=== PATIENT | female | born 1930 | race Caucasian/White ===

== ENCOUNTER 2017-09-15 13:12 | Inpatient (IN) | payer OTHER ==
[~2017-09-15] VITALS: Ht 157.5 cm; Wt 62.3 kg
[~2017-09-15 13:12] MED LIST: ACET1TAB84 PO; ALL300 PO; CALC500C73 PO; CHOL200010 PO; FRS/80 PO; FURO40TA3 PO; LEVO50TA6 PO; LOPETAB PO; MESA0.37 PO; POTA10CA28 PO; ULT50X PO
--- NOTE | 2017-09-15 13:29 | EMERGENCY ROOM VISIT NOTE ---
History Report prepared by Chu: Meek Tobar Under the Supervision of: Dr. Sandra Rich D.O. First contact with patient: 13:15 Stated Complaint: EDEMA/LOWER EXTREMITY WEAKNESS History of Present Illness The patient is an 87 year old female who presents to the Emergency Room with complaints of worsening lower extremity weakness and edema that started earlier this morning. She says that she had been taking Lasix for years due to lower extremity edema, but decided to stop taking it 3 days ago due to dribbling and urinating without warning. The patient states that she woke up overnight and urinating a lot. She says that she then sat in her chair, and she could not get up from the chair this morning. The patient states that she then decided to take her Lasix for the first time in 3 days this morning. She notes that she was on her legs more than usual yesterday. She also notes no history of heart problems, but had an echocardiogram recently. The patient denies any shortness of breath, chest pain, fevers, chills, abdominal pain, leg pain, rashes, or sores. She denies any other medication changes. Source of History: patient Onset: Earlier this morning Position: leg (bilateral) Quality: other (weakness, edema) Timing: worsening Associated Symptoms: + urinary symptoms, No fevers, No chills, No chest pain , No SOB, No abdominal pain, No rash (or sores) Note: Associated symptoms: Denies leg pain. Review of Systems See HPI for pertinent positives & negatives. A total of 10 systems reviewed and were otherwise negative. Past Medical & Surgical Medical Problems: (1) Diab Isabell Wo Compl, Type Ii Or Unspec Type, Not Uncntrld (2) Fx Distal Radius Nec-Cl (3) Hypertension Nos (4) Intertrochanteric Fx-Cl (5) Irritable Bowel Syndrome Family History Omitted due to advanced age Social History Smoking Status: Never Smoker Alcohol Use: none Housing Status: lives alone Occupation Status: retired Current/Historical Medications Scheduled Allopurinol (Zyloprim), 300 MG PO DAILY Furosemide (Lasix), 40 MG PO TID Levothyroxine Sodium (Levothyroxine Sodium), 1 TAB PO DAILY Mesalamine (Apriso), 1.5 GM PO QAM Potassium Chloride (Micro-K Ext Rel), 10 MEQ PO BID Allergies Coded Allergies: Aspirin (Verified Allergy, Unknown, [facility], 09/16/17) 09/16/17: Dr. Umanzor spoke with patient, OK to give. Monitor. Thought GI related. AJ Bisphosphonates (Verified Allergy, Unknown, ., 01/20/12) Mesalamine (Verified Allergy, Unknown, ., 01/20/12) Metformin (Verified Allergy, Unknown, ., 09/04/13) NSAIDs (Verified Allergy, Unknown, ., 01/20/12) Physical Exam Vital Signs Date Time Temp Pulse Resp B/P (MAP) Pulse Ox O2 Delivery O2 Flow Rate FiO2 09/15/17 17:59 82 18 127/73 96 Room Air 09/15/17 17:15 09/15/17 15:26 84 24 118/74 97 Room Air 09/15/17 15:17 79 24 111/64 95 Room Air 09/15/17 14:23 79 18 111/79 95 Room Air 09/15/17 13:57 85 09/15/17 13:53 84 18 130/60 96 Room Air 09/15/17 13:20 36.7 86 16 129/77 94 Room Air Physical Exam GENERAL: alert, well appearing, poor hygiene, well nourished, no distress, non- toxic EYE EXAM: normal conjunctiva, PERRL and EOM's grossly intact OROPHARYNX: no exudate, no erythema, lips, buccal mucosa, and tongue normal and mucous membranes are dry NECK: supple, no nuchal rigidity, no adenopathy, non-tender LUNGS: Clear to auscultation. Normal chest wall mechanics, no wheezes/rhonchi/ rales HEART: no murmurs, S1 normal and S2 normal ABDOMEN: abdomen soft, non-tender, normo-active bowel sounds, no masses, no rebound or guarding. BACK: Back is symmetrical on inspection and there is no deformity, no midline tenderness, no CVA tenderness. SKIN: no rashes and no bruising UPPER EXTREMITIES: upper extremities are grossly normal, normal range of motion , normal pulses. LOWER EXTREMITIES: appears to be acute on chronic lower extremity edema. No erythema, no rashes or sores. Pulses present bilaterally. NEURO EXAM: Normal sensorium, cranial nerves II-XII grossly intact, normal speech, no gross weakness of arms, no gross weakness of legs. Medical Decision & Procedures ER Provider Diagnostic Interpretation: Radiology results have been interpreted by the radiologist and reviewed by me. CHEST ONE VIEW PORTABLE HISTORY: 87 years-old Female LE edema acute lower extremity edema with concern for pulmonary edema COMPARISON: Chest radiograph 02/20/2014 TECHNIQUE: Portable upright AP view of the chest FINDINGS: Study is very limited secondary to patient positioning. The patient is sidebend the right and rotated to the right. The cardiac silhouette is moderately enlarged. Large hiatal hernia with partially intrathoracic stomach redemonstrated. Pulmonary vascular congestion is noted without overt pulmonary edema. There is no pneumothorax. Mild interstitial opacities are present bilaterally. There is trace fluid along the minor fissure. Patchy bibasilar opacities without large pleural effusion. Severe degenerative changes of the shoulders. Degenerative changes are also noted within the spine. IMPRESSION: 1. Very limited study secondary to patient positioning. 2. Moderate cardiomegaly with pulmonary vascular congestion and mild interstitial coarsening without overt pulmonary edema. 3. Bibasilar opacities suggest atelectasis. 4. Large hiatal hernia. The above report was generated using voice recognition software. It may contain grammatical, syntax or spelling errors. Electronically signed by: Joaquín Schroeder M.D. 09/15/2017 2:38 PM Dictated Date/Time: 09/15/2017 2:35 PM (CHEST FOR PE) ANGIO WITH CT DOSE: 318.70 mGycm HISTORY: 87 years-old Female presents with acute lower extremity edema with elevated troponin TECHNIQUE: Multiple CTA images of the chest were obtained after the intravenous administration of 94 ml Optiray 320. Coronal and sagittal MIPS were obtained from the axial data set and were submitted for review. A dose lowering technique was utilized adhering to the principles of ALARA. COMPARISON: Chest radiograph of same day. FINDINGS: Exam is moderately limited secondary to respiratory motion. CTA: The heart demonstrates at least moderate multichamber enlargement without pericardial effusion. Coronary arterial calcifications are noted. The thoracic aorta demonstrates no aneurysm or dissection. There is moderate mixed plaquing of the aorta with descending thoracic aortic tortuosity. The main pulmonary artery is mildly dilated which may reflect underlying pulmonary arterial hypertension. The distal segmental and subsegmental branches are not well evaluated secondary to respiratory motion. No pulmonary embolus identified. CT CHEST: No dominant thyroid nodule identified. No definite pathologic-appearing adenopathy. There are multifocal consolidative alveolar and groundglass opacities throughout the right lower lobe. Groundglass opacities of the left lower lobe suggest atelectasis or scarring. Central airways are patent. Moderate sized hiatal hernia. Cholelithiasis is partially imaged. Soft tissues are unremarkable. The bones appear mildly demineralized. Degenerative changes are seen and of the spine and shoulders. 20% anterior compression deformity of T12 is age indeterminate, however appears chronic. No retropulsion. IMPRESSION: 1. Moderately limited study secondary to respiratory motion. 2. Cardiomegaly without acute aortic pathology or evidence of pulmonary thromboembolic disease. 3. Multifocal groundglass and consolidative opacities throughout the right lower lobe suggest bronchopneumonia or aspiration pneumonitis. 4. Moderate hiatal hernia. 5. Cholelithiasis. 6. 20% anterior endplate compression deformity of T12 is age indeterminate, however appears chronic without retropulsion. The above report was generated using voice recognition software. It may contain grammatical, syntax or spelling errors. Electronically signed by: Joaquín Schroeder M.D. 09/15/2017 4:07 PM Dictated Date/Time: 09/15/2017 3:57 PM BILATERAL LOWER EXTREMITY VENOUS DOPPLER HISTORY: Lower extremity edema. COMPARISON STUDY: None. FINDINGS: There is normal compressibility, flow, and augmentation within the bilateral lower extremity deep venous systems. Of note, a small portion of the right superficial femoral vein was not visualized due to the overlapping bandages. IMPRESSION: No DVT within the right or left lower extremity. Electronically signed by: Matthew Powell M.D. 09/15/2017 5:23 PM Dictated Date/Time: 09/15/2017 5:21 PM Laboratory Results Test 09/15/17 13:35 09/15/17 14:05 Prothrombin Time 10.8 SECONDS (9.0-12.0) Prothromb Time International Ratio 1.0 (0.9-1.1) D-Dimer 3460 ug/L FEU (0-500) Magnesium Level 2.2 mg/dl (1.8-2.4) Pro-B-Type Natriuretic Peptide 85935 pg/ml (0-1800) Thyroid Stimulating Hormone (TSH) 0.879 uIu/ml (0.300-4.500) Urine Color YELLOW Urine Appearance CLOUDY (CLEAR) Urine pH 5.0 (4.5-7.5) Urine Specific [place] 1.014 (1.000-1.030) Urine Protein 1+ (NEG) Urine Glucose (UA) NEG (NEG) Urine Ketones NEG (NEG) Urine Occult Blood 1+ (NEG) Urine Nitrite NEG (NEG) Urine Bilirubin NEG (NEG) Urine Urobilinogen NEG (NEG) Urine Leukocyte Esterase LARGE (NEG) Urine WBC (Auto) >30 /hpf (0-5) Urine RBC (Auto) 0-4 /hpf (0-4) Urine Hyaline Casts (Auto) 1-5 /lpf (0-5) Urine Epithelial Cells (Auto) 0-5 /lpf (0-5) Urine Bacteria (Auto) 4+ (NEG) Laboratory results per my review. Medications Administered Medications (Trade) Dose Ordered Sig/Elen Route Start Time Stop Time Status Last Admin Dose Admin Ceftriaxone Sodium (Rocephin Inj) 1 gm NOW STAT IV 09/15/17 14:56 09/15/17 14:57 DC 09/15/17 15:22 1 GM Furosemide (Lasix Inj) 40 mg NOW STAT IV 09/15/17 14:57 09/15/17 14:59 DC 09/15/17 15:21 40 MG Azithromycin 500 mg/Dextrose 255 ml @ 127.5 mls/ hr NOW ONCE IV 09/15/17 17:00 09/15/17 18:59 DC 09/15/17 18:01 127.5 MLS/HR Ertapenem 1 gm/ Sodium Chloride 50 ml @ 100 mls/hr NOW ONCE IV 09/15/17 17:00 09/15/17 17:29 DC 09/15/17 18:01 100 MLS/HR ECG Indication: weakness Rate (beats per minute): 82 Rhythm: sinus rhythm Findings: T-wave inversion (subtle in V4, V5, V6), other (normal axis, normal intervals, no ST elevation) ED Course 1317: The patient was evaluated in room B3B. A complete history and physical exam was performed. 1325: I reviewed the patient's echocardiogram report from 2 years ago. 1456: Ordered Rocephin Inj 1 gm IV. 1457: Ordered Lasix Inj 40 mg IV. 1524: I reevaluated the patient and she denies any chest pain or shortness of breath. Her son at bedside says he has noticed the patient has been more winded with exertion recently. 1531: Ordered Ecotrin Tab 325 mg PO. 1650: Upon reevaluation, the patient is resting. I discussed the findings and the treatment plan with the patient. She expresses agreement and understanding. She will be evaluated for further management. 1652: The pharmacist will dose some antibiotics on the patient. 1655: The patient is at CT. 1657: I reviewed the patient's case with Lucia Mcknight. She will evaluate the patient for further management. 1700: Ordered Ertapenem 1 gm/Sodium Chloride 50 ml @ 100 mls/hr IV, Azithromycin 500 mg/Dextrose 255 ml @ 127.5 mls/hr IV. 1716: I discussed the patient with Dr. Prosper Mcknight outpatient dietitian. 1743: I discussed the patient with Dr. Erna Mcknight cardiology - he says no heparin drip at this time, and says that routine DVT prophylaxis is okay. Medical Decision Differential Diagnosis includes but is not limited to dehydration, stroke, anemia, hypoglycemia, hyponatremia, hypernatremia, urinary tract infection, pneumonia, bronchitis, sepsis, gastroenteritis, additional abdominal pathology, metabolic abnormalities and infections. Patient initially presented with complaints of increased lower extremity edema which was initially thought to be due to her skipping her doses earlier in the week because she did not want to use the restroom as frequently. Upon additional evaluation patient found to have a leukocytosis, pneumonia, UTI, elevated troponin and BNP. Discussed patient with hospitalist as well as cardiology. No DVT noted on evaluation of lower extremities. No evidence of dissection, tamponade. Patient's vital signs stable. She with no reported trouble breathing or chest pain throughout. Unclear if elevated troponin related to combination of pneumonia, congestive heart failure, mild renal insufficiency. Cultures drawn and initial Rocephin for UTI, broadened following finding pneumonia. Concern for evolving sepsis. Patient and son made aware of all results were agreeable with plan at bedside. Medication Reconcilliation Current Medication List: was personally reviewed by me Blood Pressure Screening Patient's blood pressure: Normal blood pressure Consults Time Called: 1654 Consulting Physician: Lucia Mcknight Returned Call: 1656 I reviewed the patient's case with Lucia Mcknight. She will evaluate the patient for further management. Additional Consults: Time Called: 1710 Consulted Physician: Dr. Prosper Mcknight outpatient dietitian Returned Call: 1716 Additional Comments: I discussed the patient with Dr. Prosper Mcknight outpatient dietitian. Time Called: 1739 Consulted Physician: Dr. Erna Mcknight cardiology Returned Call: 1743 Additional Comments: I discussed the patient with Dr. Erna Mcknight cardiology - he says no heparin drip at this time, and says that routine DVT prophylaxis is okay. Impression Primary Impression: Lower extremity edema Additional Impressions: UTI (urinary tract infection) PNA (pneumonia) Elevated troponin Elevated brain natriuretic peptide (BNP) level Critical Care I have personally spent greater than 60 minutes of critical care time in the direct management of this patient. This includes bedside care, interpretation of diagnostic studies, and testing, discussion with consultants, patient, and family members, and other required patient management activities. This 60 minutes is in excess of all separately billable procedures. Scribe Attestation The scribe's documentation has been prepared under my direction and personally reviewed by me in its entirety. I confirm that the note above accurately reflects all work, treatment, procedures, and medical decision making performed by me. Departure Information Dispostion Being Evaluated By Hospitalist Referrals [facility] (PCP) Problem Qualifiers Additional Impressions: UTI (urinary tract infection) Urinary tract infection type: acute cystitis Hematuria presence: with hematuria Qualified Codes: N30.01 - Acute cystitis with hematuria PNA (pneumonia) Pneumonia type: due to unspecified organism Laterality: bilateral Lung location: lower lobe of lung Qualified Codes: J18.9 - Pneumonia, unspecified organism
[2017-09-15] MEDS ORDERED: LEVO75TA5 PO (13:44)
[2017-09-15] MEDS ORDERED: FRS/40 PO (13:44)
[2017-09-15] MEDS ORDERED: ALLO300T2 PO (13:44)
[2017-09-15 14:23] LABS: HEMATOCRIT 37.7 % (37-47); MEAN CELL VOLUME 96.7 fL (80-100); MEAN CORPUSCULAR HGB CONC 32.1 g/dl (32-36); MEAN PLATELET VOLUME 10.8 fL (7.4-10.4); PLATELET COUNT 216 K/uL (130-400); WHITE BLOOD COUNT 25.43 K/uL (4.8-10.8)
[2017-09-15 14:39] LABS: BUN/CREATININE RATIO 26.7 (10-20); CALCIUM 9.6 mg/dl (8.5-10.1); CREATININE 1.25 mg/dl (0.60-1.20); MAGNESIUM 2.2 mg/dl (1.8-2.4); POTASSIUM 4.4 mmol/L (3.5-5.1)
--- NOTE | 2017-09-15 14:39 | DIAGNOSTIC IMAGING REPORT ---
CHEST ONE VIEW PORTABLE HISTORY: 87 years-old Female LE edema acute lower extremity edema with concern for pulmonary edema COMPARISON: Chest radiograph 02/20/2014 TECHNIQUE: Portable upright AP view of the chest FINDINGS: Study is very limited secondary to patient positioning. The patient is sidebend the right and rotated to the right. The cardiac silhouette is moderately enlarged. Large hiatal hernia with partially intrathoracic stomach redemonstrated. Pulmonary vascular congestion is noted without overt pulmonary edema. There is no pneumothorax. Mild interstitial opacities are present bilaterally. There is trace fluid along the minor fissure. Patchy bibasilar opacities without large pleural effusion. Severe degenerative changes of the shoulders. Degenerative changes are also noted within the spine. IMPRESSION: 1. Very limited study secondary to patient positioning. 2. Moderate cardiomegaly with pulmonary vascular congestion and mild interstitial coarsening without overt pulmonary edema. 3. Bibasilar opacities suggest atelectasis. 4. Large hiatal hernia. The above report was generated using voice recognition software. It may contain grammatical, syntax or spelling errors. Electronically signed by: Joaquín Schroeder M.D. 09/15/2017 2:38 PM Dictated Date/Time: 09/15/2017 2:35 PM
[2017-09-15 14:48] LABS: URINE APPEARANCE CLOUDY (CLEAR); URINE BILIRUBIN NEG (NEG); URINE COLOR YELLOW; URINE EPITHELIAL CELL AUTO 0-5 /lpf (0-5); URINE NITRITE NEG (NEG); URINE SPECIFIC GRAVITY 1.014 (1.000-1.030); UROBILINOGEN NEG (NEG)
[2017-09-15 14:48] LABS: ALB/GLOB RATIO 0.9 (0.9-2)
[2017-09-15 14:53] LABS: MANUAL MICROSCOPIC REQUIRED? NO; REVIEW REQ? NO
[2017-09-15] MEDS ORDERED: CEFTRIAXONE SOD INJ 1 GM ADDVIAL IV STA (14:56)
[2017-09-15] MEDS ORDERED: FUROSEMIDE 40 MG/4 ML VIAL IV STA (14:57)
[2017-09-15] MEDS ORDERED: OPTIRAY 320 IV PRN (15:15)
[2017-09-15 15:23] LABS: BASO % 0.1 %; BASO ABS # 0.03 K/uL (0-0.2); COMPLETE YES; IG% 0.3 %; LYMPH % 3.9 %; LYMPH ABS # 0.99 K/uL (1.2-3.4); MONO % 6.1 %; NEUT % 89.6 %
[2017-09-15] MEDS ORDERED: ASPIRIN 325 MG ECTAB PO STA (15:31)
--- NOTE | 2017-09-15 16:08 | DIAGNOSTIC IMAGING REPORT ---
(CHEST FOR PE) ANGIO WITH CT DOSE: 318.70 mGycm HISTORY: 87 years-old Female presents with acute lower extremity edema with elevated troponin TECHNIQUE: Multiple CTA images of the chest were obtained after the intravenous administration of 94 ml Optiray 320. Coronal and sagittal MIPS were obtained from the axial data set and were submitted for review. A dose lowering technique was utilized adhering to the principles of ALARA. COMPARISON: Chest radiograph of same day. FINDINGS: Exam is moderately limited secondary to respiratory motion. CTA: The heart demonstrates at least moderate multichamber enlargement without pericardial effusion. Coronary arterial calcifications are noted. The thoracic aorta demonstrates no aneurysm or dissection. There is moderate mixed plaquing of the aorta with descending thoracic aortic tortuosity. The main pulmonary artery is mildly dilated which may reflect underlying pulmonary arterial hypertension. The distal segmental and subsegmental branches are not well evaluated secondary to respiratory motion. No pulmonary embolus identified. CT CHEST: No dominant thyroid nodule identified. No definite pathologic-appearing adenopathy. There are multifocal consolidative alveolar and groundglass opacities throughout the right lower lobe. Groundglass opacities of the left lower lobe suggest atelectasis or scarring. Central airways are patent. Moderate sized hiatal hernia. Cholelithiasis is partially imaged. Soft tissues are unremarkable. The bones appear mildly demineralized. Degenerative changes are seen and of the spine and shoulders. 20% anterior compression deformity of T12 is age indeterminate, however appears chronic. No retropulsion. IMPRESSION: 1. Moderately limited study secondary to respiratory motion. 2. Cardiomegaly without acute aortic pathology or evidence of pulmonary thromboembolic disease. 3. Multifocal groundglass and consolidative opacities throughout the right lower lobe suggest bronchopneumonia or aspiration pneumonitis. 4. Moderate hiatal hernia. 5. Cholelithiasis. 6. 20% anterior endplate compression deformity of T12 is age indeterminate, however appears chronic without retropulsion. The above report was generated using voice recognition software. It may contain grammatical, syntax or spelling errors. Electronically signed by: Joaquín Schroeder M.D. 09/15/2017 4:07 PM Dictated Date/Time: 09/15/2017 3:57 PM
[2017-09-15] MEDS ORDERED: ERTAPENEM IV 1 GM in SODIUM CHLOR 0.9% AD-VAN 50ML IV ONE (17:00)
[2017-09-15] MEDS ORDERED: AZITHROMYCIN 500 MG / D5W 250 ML IV ONE ×2 (17:00)
--- NOTE | 2017-09-15 17:24 | DIAGNOSTIC IMAGING REPORT ---
BILATERAL LOWER EXTREMITY VENOUS DOPPLER HISTORY: Lower extremity edema. COMPARISON STUDY: None. FINDINGS: There is normal compressibility, flow, and augmentation within the bilateral lower extremity deep venous systems. Of note, a small portion of the right superficial femoral vein was not visualized due to the overlapping bandages. IMPRESSION: No DVT within the right or left lower extremity. Electronically signed by: Matthew Powell M.D. 09/15/2017 5:23 PM Dictated Date/Time: 09/15/2017 5:21 PM
[2017-09-15] MEDS ORDERED: CLOPIDOGREL BISULFATE 75 MG TAB PO ONE (18:15)
[2017-09-15 19:35] VITALS: BP 117/64; PULSE 82; TEMP 36.7; Ht 157.5 cm; Wt 62.3 kg
--- NOTE | 2017-09-15 20:15 | History and Physical ---
History & Physical Date & Time of Service: Sep 15, 2017 at 20:05 Chief Complaint: Elevated Troponin, Lower Extremity Edema, Pna Primary Care Physician: Russ Doshi M.D. History of Present Illness Source: patient 87 year old F who was in her usual state of health yesterday when walking and shopping in [facility], went to sleep in a chair at home instead of her bed and when awaking, patient was too weak to get up off the chair by herself, patient called for assistance and a neighbor helped her get cleaned up, and helped her get assistance to go to the hospital, when arrived in the ED her labs were significant for troponin of 18 without acute EKG findings as per ED interpretation. D-dimer positive, but CTA did not find evidence of pulmonary embolism and lower extremity ultrasound did not find evidence for deep vein thrombosis. CTA imaging pertinent for Multifocal ground glass and consolidative opacities throughout the right lower lobe suggest bronchopneumonia or aspiration pneumonitis. Patient denied shortness of breath or chest pain or abdominal pain. Because patient reports aspirin allergy, the 325 mg of aspirin that was ordered by the ER physician was stopped. Case discussed with Cardiology Dr. Umanzor who advised alternative antiplatelet - clopidogrel 75 mg x 1 for now, and to hold off on heparin drip. Patient also denied history of dysuria but had positive UA. For empiric treatment of pneumonia or UTI, ER physician ordered IV ceftriaxone, IV azithromycin, and IV Ertapenem. Patient also has been off of her Lasix for several days and has elevated BNP suggestive that infiltrates in lung may be due to CHF and also reports increased lower extremity swelling. Patient was seen and assessed by hospitalist medical physician and as per discussion with the patient with her son (contact number [phone]), patient declines resuscitation or intubation in an emergency situation - Code status DNR/DNI Family History Omitted due to advanced age Social History Smoking Status: Never Smoker Occupational Status: retired Immunizations History of Influenza Vaccine: Yes History of Tetanus Vaccine?: Yes History of Pneumococcal: Yes History of Hepatitis B Vaccine: Yes Multi-Drug Resistant Organisms History of MDRO: No Allergies Coded Allergies: Aspirin (Verified Allergy, Unknown, uknown, 02/16/14) Bisphosphonates (Verified Allergy, Unknown, ., 01/20/12) Mesalamine (Verified Allergy, Unknown, ., 3/23/12) Metformin (Verified Allergy, Unknown, ., 09/04/13) NSAIDs (Verified Allergy, Unknown, ., 01/20/12) Home Medications Scheduled Allopurinol (Zyloprim), 300 MG PO DAILY Furosemide (Lasix), 40 MG PO TID Levothyroxine Sodium (Levothyroxine Sodium), 1 TAB PO DAILY Mesalamine (Apriso), 1.5 GM PO QAM Potassium Chloride (Micro-K Ext Rel), 10 MEQ PO BID Review of Systems Constitutional: + weakness, No fever, No sweats Eyes: No worsening of vision, No eye pain ENT: No hearing loss, No nasal symptoms, No sore throat, No trouble swallowing Respiratory: No cough, No sputum, No wheezing, No shortness of breath Cardiovascular: + edema, No chest pain, No palpitations Abdomen: No pain, No nausea, No vomiting, No diarrhea, No constipation, No GI bleeding Musculoskeletal: + swelling, No joint pain, No muscle pain, No calf pain Genitourinary - Female: No dysuria Neurologic: No numbness/tingling Psychiatric: No substance abuse Hematologic / Lymphatic: No abnormal bleeding/bruising Integumentary: No rash, No itch Physical Exam Vital Signs Date Time Temp Pulse Resp B/P (MAP) Pulse Ox O2 Delivery O2 Flow Rate FiO2 09/15/17 18:50 78 24 146/74 93 Room Air 09/15/17 17:59 82 18 127/73 96 Room Air 09/15/17 17:15 09/15/17 15:26 84 24 118/74 97 Room Air 09/15/17 15:17 79 24 111/64 95 Room Air 09/15/17 14:23 79 18 111/79 95 Room Air 09/15/17 13:57 85 09/15/17 13:53 84 18 130/60 96 Room Air 09/15/17 13:20 36.7 86 16 129/77 94 Room Air General Appearance: no apparent distress Head: normocephalic, atraumatic Eyes: normal inspection, EOMI, sclerae normal ENT: normal ENT inspection, hearing grossly normal, TMs normal, pharynx normal Neck: no JVD, trachea midline Respiratory/Chest: chest non-tender, no respiratory distress, no accessory muscle use, + crackles Cardiovascular: regular rate, rhythm, no JVD, + systolic murmur Abdomen/GI: normal bowel sounds, non tender, soft Back: normal inspection, no muscle spasm, normal range of motion Extremities/Musculoskelatal: normal range of motion, + pedal edema, + swelling (lower extremities bilterally) Neurologic/Psych: no motor/sensory deficits, alert, oriented x 3 Skin: normal color, warm/dry, no rash Diagnostics Laboratory Results Results Past 24 Hours Test 09/15/17 13:35 09/15/17 14:05 09/15/17 19:35 Range/Units White Blood Count 25.43 4.8-10.8 K/uL Red Blood Count 3.90 4.2-5.4 M/uL Hemoglobin 12.1 12.0-16.0 g/dL Hematocrit 37.7 37-47 % Mean Corpuscular Volume 96.7 80-100 fL Mean Corpuscular Hemoglobin 31.0 25-34 pg Mean Corpuscular Hemoglobin Concent 32.1 32-36 g/dl Platelet Count 216 130-400 K/uL Mean Platelet Volume 10.8 7.4-10.4 fL Neutrophils (%) (Auto) 89.6 % Lymphocytes (%) (Auto) 3.9 % Monocytes (%) (Auto) 6.1 % Eosinophils (%) (Auto) 0.0 % Basophils (%) (Auto) 0.1 % Neutrophils # (Auto) 22.79 1.4-6.5 K/uL Lymphocytes # (Auto) 0.99 1.2-3.4 K/uL Monocytes # (Auto) 1.55 0.11-0.59 K/uL Eosinophils # (Auto) 0.00 0-0.5 K/uL Basophils # (Auto) 0.03 0-0.2 K/uL RDW Standard Deviation 52.3 36.4-46.3 fL RDW Coefficient of Variation 15.0 11.5-14.5 % Immature Granulocyte % (Auto) 0.3 % Immature Granulocyte # (Auto) 0.07 0.00-0.02 K/uL D-Dimer 3460 0-500 ug/L FEU Sodium Level 141 136-145 mmol/L Potassium Level 4.4 3.5-5.1 mmol/L Chloride Level 106 98-107 mmol/L Carbon Dioxide Level 24 21-32 mmol/L Anion Gap 12.0 3-11 mmol/L Blood Urea Nitrogen 33 7-18 mg/dl Creatinine 1.25 0.60-1.20 mg/dl Est Creatinine Clear Calc Drug Dose 27.9 ml/min Estimated GFR () 45.4 Estimated GFR (Non- 39.2 BUN/Creatinine Ratio 26.7 10-20 Random Glucose 151 70-99 mg/dl Calcium Level 9.6 8.5-10.1 mg/dl Magnesium Level 2.2 1.8-2.4 mg/dl Total Bilirubin 0.5 0.2-1 mg/dl Aspartate Amino Transf (AST/SGOT) 88 15-37 U/L Alanine Aminotransferase (ALT/SGPT) 20 12-78 U/L Alkaline Phosphatase 73 45-117 U/L Troponin I 18.200 0-0.045 ng/ml Pro-B-Type Natriuretic Peptide 23573 0-1800 pg/ml Total Protein 7.2 6.4-8.2 gm/dl Albumin 3.4 3.4-5.0 gm/dl Globulin 3.8 2.5-4.0 gm/dl Albumin/Globulin Ratio 0.9 0.9-2 Thyroid Stimulating Hormone (TSH) 0.879 0.300-4.500 uIu/ml Urine Color YELLOW Urine Appearance CLOUDY CLEAR Urine pH 5.0 4.5-7.5 Urine Specific [place] 1.014 1.000-1.030 Urine Protein 1+ NEG Urine Glucose (UA) NEG NEG Urine Ketones NEG NEG Urine Occult Blood 1+ NEG Urine Nitrite NEG NEG Urine Bilirubin NEG NEG Urine Urobilinogen NEG NEG Urine Leukocyte Esterase LARGE NEG Urine WBC (Auto) >30 0-5 /hpf Urine RBC (Auto) 0-4 0-4 /hpf Urine Hyaline Casts (Auto) 1-5 0-5 /lpf Urine Epithelial Cells (Auto) 0-5 0-5 /lpf Urine Bacteria (Auto) 4+ NEG Microbiology Results 09/15/17 Blood Culture, Received Pending 09/15/17 Blood Culture, Received Pending Diagnostic Radiology CT CHEST: No dominant thyroid nodule identified. No definite pathologic-appearing adenopathy. There are multifocal consolidative alveolar and groundglass opacities throughout the right lower lobe. Groundglass opacities of the left lower lobe suggest atelectasis or scarring. Central airways are patent. Moderate sized hiatal hernia. Cholelithiasis is partially imaged. Soft tissues are unremarkable. The bones appear mildly demineralized. Degenerative changes are seen and of the spine and shoulders. 20% anterior compression deformity of T12 is age indeterminate, however appears chronic. No retropulsion. IMPRESSION: 1. Moderately limited study secondary to respiratory motion. 2. Cardiomegaly without acute aortic pathology or evidence of pulmonary thromboembolic disease. 3. Multifocal groundglass and consolidative opacities throughout the right lower lobe suggest bronchopneumonia or aspiration pneumonitis. 4. Moderate hiatal hernia. 5. Cholelithiasis. 6. 20% anterior endplate compression deformity of T12 is age indeterminate, however appears chronic without retropulsion. EKG Normal sinus rhythm Voltage criteria for left ventricular hypertrophy ST & T wave abnormality, consider lateral ischemia Abnormal ECG When compared with ECG of 16-FEB-2014 16:47, ST now depressed in Inferior leads Nonspecific T wave abnormality now evident in Inferior leads T wave inversion now evident in Lateral leads Impression Assessment and Plan 87 year old F who was in her usual state of health yesterday when walking and shopping in [facility], went to sleep in a chair at home instead of her bed and when awaking, patient was too weak to get up off the chair by herself, patient called for assistance and a neighbor helped her get cleaned up, and helped her get assistance to go to the hospital, when arrived in the ED her labs were significant for troponin of 18 without acute EKG findings as per ED interpretation. D-dimer positive, but CTA did not find evidence of pulmonary embolism and lower extremity ultrasound did not find evidence for deep vein thrombosis. CTA imaging pertinent for Multifocal ground glass and consolidative opacities throughout the right lower lobe suggest bronchopneumonia or aspiration pneumonitis. Patient denied shortness of breath or chest pain or abdominal pain. Because patient reports aspirin allergy, the 325 mg of aspirin that was ordered by the ER physician was stopped. Case discussed with Cardiology Dr. Umanzor who advised alternative antiplatelet - clopidogrel 75 mg x 1 for now, and to hold off on heparin drip. Patient also denied history of dysuria but had positive UA. For empiric treatment of pneumonia or UTI, ER physician ordered IV ceftriaxone, IV azithromycin, and IV Ertapenem. Patient also has been off of her Lasix for several days and has elevated BNP suggestive that infiltrates in lung may be due to CHF and also reports increased lower extremity swelling. Patient was seen and assessed by hospitalist medical physician and as per discussion with the patient with her son (contact number [phone]), patient declines resuscitation or intubation in an emergency situation - Code status DNR/DNI Elevated Troponin -Initial troponin 18, ED physician discussed case with cardiology Dr. Umanzor -As per Dr. Umanzor no need for IV heparin for now in patient without chest pain symptoms -The EKG on ER admission without obvious ST elevation however has readings of "Normal sinus rhythm Voltage criteria for left ventricular hypertrophy ST & T wave abnormality, consider lateral ischemia Abnormal ECG When compared with ECG of 16-FEB-2014 16:47, ST now depressed in Inferior leads Nonspecific T wave abnormality now evident in Inferior leads T wave inversion now evident in Lateral leads" -will repeat EKG, and trend troponins overnight -if further elevations in troponins or EKG changes or symptoms of chest pain, then will re-consult cardiology on IV anticoagulation -patient did not get aspirin 325 mg in the ED due to reported allergy but patient cannot recall what those allergic reactions are -75 mg of clopidogrel ordered instead, and as daily -NPO after midnight, echocardiogram ordered tomorrow, may need stress echo -cardiology consult to follow patient, hospitalist medicine physician should re- call cardiology consult as needed Possible CHF exacerbation -infiltrates in lung zavaleta with elevated BNP, and patient off of oral Lasix at home -Lower extremity edema without evidence of DVT -IV Lasix 40 mg BID for now -NPO after midnight, echocardiogram ordered tomorrow, may need stress echo Possible Pneumonia with no evidence of pulmonary embolism on CTA -infiltrates in lung zavaleta -Continue IV Ceftriaxone and IV Azithromycin which was started in the ER -send pro-calcitonin levels UA with bacteria, but no dysuria -Patient given Ertapenem in the ER -Without dysuria, it is unclear whether patient has UTI, will hold off on Ertapenem -Ceftriaxone for pneumonia coverage also has UTI coverage Electrolytes -Continue home medications of oral potassium -Monitor electrolytes while on increased Lasix Hypothyroidism -TSH checked -Continue home dose Levothyroxine Gout medication: no gout flare, continue home dose allopurinol GI: no GI complaints, hold home dose mesalamine for now DVT ppx: heparin subcutaneous [id number] for now Code Status: DNR/DNI Disposition: Admission to Telemetry Level of Care Telemetry Resuscitation Status DO NOT RESUSCITATE VTE Prophylaxis VTE Risk Assessment Done? Y/N: Yes Risk Level: Moderate
[2017-09-15 21:09] LABS: PROTHROMBIN TIME (PATIENT) 10.8 SECONDS (9.0-12.0)
[2017-09-15] MEDS: POTASSIUM CHLORIDE 10 MEQ TABCR PO SCH (21:13)
[2017-09-15] MEDS: FUROSEMIDE INJ 40 MG in SYRINGE 0 ML IV SCH (21:13)
[2017-09-15] MEDS ORDERED: HEPARIN SOD 5000 UNIT/0.5 ML CARP SQ SCH (22:00)
[2017-09-15 22:27] LABS: PARTIAL THROMBOPLASTIN RATIO 1.2
--- NOTE | 2017-09-15 22:44 | Progress Note ---
Progress Note Date of Service Sep 15, 2017. Progress Note Patient's troponin levels have increased from 18.2 to 22.7. EKG repeated at 9: 50 PM with subsequent T wave inversions in anteroseptal leads. Patient sleeping after EKG performed. When awoken from sleep patient denies chest pain or shortness of breath. Spoke with Dr. Umanzor of Cardiology service and he agrees to starting IV heparin standard drip without bolus given lab and EKG findings. Dr. Jeong, [facility] hospitalist has ordered head CT to rule out risk for intracranial bleed before heparin drip started.
--- NOTE | 2017-09-15 23:06 | DIAGNOSTIC IMAGING REPORT ---
CT OF THE HEAD WITHOUT CONTRAST CLINICAL HISTORY: Weakness. COMPARISON STUDY: Head CT February 18, 2014. CT DOSE: 614.27 mGy.cm TECHNIQUE: Helical axial images of the head were obtained without IV contrast. Automated exposure control was utilized for the study. A dose lowering technique was utilized adhering to the principles of ALARA. FINDINGS: No acute intracranial hemorrhage, midline shift or mass effect is present. Ventricular system is unremarkable for age. The basilar cisterns are patent. There are no extra-axial collections. Increased attenuation of the dural sinuses is likely related to recent IV contrast-enhanced chest CT. A 7 mm hypodensity within left thalamus is new since head CT of February 18, 2014. A 5 mm hypodensity within the left caudate head is also new. There are no CT findings to suggest acute dural sinus thrombosis or acute territorial infarct. There are no significant calvarial abnormalities. Visualized portions of the sinuses and mastoid air cells are clear. IMPRESSION: 1. No acute intracranial hemorrhage or mass effect. 2. 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 Electronically signed by: Azar Mata M.D. 09/15/2017 11:04 PM Dictated Date/Time: 09/15/2017 10:59 PM
[2017-09-15] MEDS: HEPARIN 25,000 UNIT/500ML D5W 500 ML IV PRN (23:26)
[2017-09-15 23:56] VITALS: BP 117/70; PULSE 79; TEMP 36.8; O2SAT 93
[2017-09-16 03:35] VITALS: BP 116/70; PULSE 73; TEMP 36.4; O2SAT 96
[2017-09-16 04:57] LABS: BASO % 0.1 %; BASO ABS # 0.02 K/uL (0-0.2); COMPLETE YES; EOS % 1.2 %; HEMATOCRIT 35.1 % (37-47); IG% 0.3 %; LYMPH ABS # 0.96 K/uL (1.2-3.4); MEAN CELL VOLUME 95.1 fL (80-100); MEAN CORPUSCULAR HEMOGLOBIN 30.9 pg (25-34); MEAN CORPUSCULAR HGB CONC 32.5 g/dl (32-36); MEAN PLATELET VOLUME 10.6 fL (7.4-10.4); NEUT % 82.4 %; PLATELET COUNT 189 K/uL (130-400); RED BLOOD COUNT 3.69 M/uL (4.2-5.4); WHITE BLOOD COUNT 13.62 K/uL (4.8-10.8)
[2017-09-16 05:09] LABS: CALCIUM 8.6 mg/dl (8.5-10.1); CREATININE 1.12 mg/dl (0.60-1.20); POTASSIUM 3.5 mmol/L (3.5-5.1)
[2017-09-16 05:16] LABS: ALB/GLOB RATIO 0.8 (0.9-2); CHOLESTEROL/HDL RATIO 1.9; PARTIAL THROMBOPLASTIN RATIO 1.8
[2017-09-16] MEDS: LEVOTHYROXINE 75 MCG TAB PO SCH (06:14)
[2017-09-16 07:02] LABS: ESTIMATED AVERAGE GLUCOSE 123 mg/dl; HA1C FLAG Normal (Normal)
[2017-09-16 08:29] VITALS: BP 109/66; PULSE 74; TEMP 36.7; O2SAT 97
[2017-09-16] MEDS: AZITHROMYCIN 250 MG TAB PO SCH (08:56)
[2017-09-16] MEDS: ALLOPURINOL 300 MG TAB PO SCH (08:56)
[2017-09-16] MEDS: FUROSEMIDE INJ 40 MG in SYRINGE 0 ML IV SCH ×2 (08:56→20:07)
[2017-09-16] MEDS: POTASSIUM CHLORIDE 10 MEQ TABCR PO SCH ×2 (08:56→16:50)
[2017-09-16] MEDS ORDERED: METOPROLOL TARTRATE 25 MG TAB PO STA (09:01)
--- NOTE | 2017-09-16 09:25 | CARDIOLOGY CONSULTATION ---
DATE OF CONSULTATION: 09/16/2017 DATE OF CONSULTATION: 09/16/2017 Consultation for Juan Luis dwyer. REASON FOR CONSULTATION: Non-STEMI. HISTORY OF PRESENT ILLNESS: This is an 87-year-old female who still lives independently and has been followed by Dr. Russ Doshi her primary care physician for many years. She has been on a daily dose of Lasix for chronic lower extremity edema for many years. Recently, she was having trouble with frequency and incontinence. She states she could not make it from her bed to the bathroom and it was occurring quite often so she decided to stop her Lasix. She was off of Lasix for approximately 3 days. She decided to go to [facility] yesterday and while she was there, she noticed that her legs were hurting and they were fatigued. She reached up to grab something off a shelf and it fell on her and she has a tiny contusion under her left eye. At that point, she decided that she might be in trouble and proceeded to leave [facility] and return home. Her weakness increased. She was having difficulty getting out of bed to go to the bathroom and ended up in a recliner. She called her neighbor who then brought her to the hospital. After arrival here, she was noted a white count elevation of 25,000 with a left shift. She also had an initial troponin of 18.2 and no acute EKG changes that would suggest acute coronary syndrome. The patient in the Emergency Department was not having symptoms of chest pain or any other symptoms that would suggest an acute coronary event. She did have a positive D-dimer and a CT of the chest was performed that was negative for pulmonary emboli but did show some changes that may be consistent with congestive heart failure or pneumonia. The patient's pronatriuretic peptide on admission was 22,000. She was started on IV Lasix. I discussed the case with the hospitalist and due to the clouded nature of her presentation I felt best that we should just start her on subQ heparin and not fully anticoagulate her due to the risks. She was given a dose of Plavix and eventually a dose of aspirin. There was some confusion regarding possible aspirin allergy; however, after discussion with the patient she does not recall ever having an allergic reaction to aspirin. She is now heparinized and on aspirin and Plavix. She has no complaints this morning and actually feels better after the Ann catheter was placed. She slept well for the first time in days. Her urinalysis on admission shows a large number of WBCs. This would be consistent with a urinary tract infection. The patient's initial EKG did not show any acute changes, but in reviewing her second EKG, there is evidence of a recent septal wall infarct. She had an echocardiogram this morning which I rereviewed prior to seeing her and she has evidence of a previous septal wall infarct which is most likely indeterminant age at this point. She also has some aortic sclerosis with probable mild aortic stenosis and at least moderate mitral regurgitation. ALLERGIES: LISTED METFORMIN, NSAIDS, MESALAMINE AND BISPHOSPHONATES. As outlined in the history of chief complaint the aspirin allergy is questionable. PAST MEDICAL HISTORY: She has been treated for diabetes, hypothyroidism, and gout. She also has generalized arthritis. No prior history of heart disease or strokes. SOCIAL HISTORY: She lives independently. She is a never smoker. FAMILY MEDICAL HISTORY: Noncontributory. REVIEW OF SYSTEMS: A 10-point review of systems is negative except for the history of chief complaint. PHYSICAL EXAMINATION: GENERAL: She is alert and oriented and resting comfortably. VITAL SIGNS: Blood pressure is 120/70, pulse is regular at 70. She is afebrile. HEAD, EYES, EARS, NOSE, AND THROAT: She is normocephalic. Pupils are equal and reactive to light. Extraocular muscles are intact bilaterally. NECK: The neck veins are flat. Carotids have good upstrokes bilaterally without bruits. Thyroid is nonpalpable. RESPIRATORY: Breath sounds equal bilaterally and clear to auscultation. CARDIOVASCULAR: Heart has a regular rhythm. Normal S1, S2. No S3, S4. There is a systolic murmur along the left sternal border. GASTROINTESTINAL: Abdomen is soft, nontender without organomegaly. EXTREMITIES: Free of edema, digit clubbing, cyanosis. NEUROLOGIC: Grossly intact. SKIN: Warm to touch. LYMPH NODES: Negative to palpation. LABORATORY DATA: As per the history of chief complaint. IMPRESSION: 1. Urinary tract infection. 2. 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 3. Mild aortic stenosis. 4. Mitral regurgitation. 5. Treated hypothyroidism. 6. Diabetes. RECOMMENDATIONS: I will start the patient on low dose of beta vandana. She will receive 12.5 mg of Lopressor b.i.d. Depending on her response to this medication. We will consider adding an LALO inhibitor at a later date. She is currently clinically stable. 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 I would continue to treat her urinary tract infection with antibiotics. If her clinical course should change and she becomes symptomatic, then we will swing into a invasive course and consider cardiac catheterization at that point. TWIN
[2017-09-16] MEDS: ASPIRIN 81 MG ECTAB PO SCH (09:37)
[2017-09-16] MEDS: PANTOprazole SOD 40 MG TAB PO SCH (09:37)
--- NOTE | 2017-09-16 10:45 | Progress Note ---
Medicine Progress Note Date & Time of Visit: Sep 16, 2017 at 10:03. Subjective Pt was seen and examined Lying in bed comfortable with no distress watching TV Pt said that she feels much better today she said that she does not have any chest pain She stopped her Lasix because she was going to the bathroom to much Pt said that her leg looks much better today. She said that her leg were a little darker and swelling Denies any chest pain, palpitation, dizziness and SOB Objective Last 8 Hrs Date Time Temp Pulse Resp B/P (MAP) Pulse Ox O2 Delivery O2 Flow Rate FiO2 09/16/17 08:29 36.7 74 18 109/66 (80) 97 Room Air 09/16/17 08:00 Room Air 09/16/17 04:02 Room Air 09/16/17 03:35 36.4 73 17 116/70 (85) 96 Physical Exam: General- No acute distress Head- atraumatic Eyes- PERRL, EOMI ENT- oropharynx clear Neck- supple, no JVD Lungs- clear to auscultation Heart- regular rhythm; +systolic murmur Abdomen- normal bowel sounds, soft, nontender Extremities- +edema, no calf tenderness Neuro- alert, oriented x 3; PERRL, EOMI; no facial palsy; no dysarthria Skin- warm & dry Laboratory Results: Last 24 Hours Test 09/15/17 13:35 09/15/17 14:05 09/15/17 20:01 09/15/17 21:52 White Blood Count 25.43 K/uL Red Blood Count 3.90 M/uL Hemoglobin 12.1 g/dL Hematocrit 37.7 % Mean Corpuscular Volume 96.7 fL Mean Corpuscular Hemoglobin 31.0 pg Mean Corpuscular Hemoglobin Concent 32.1 g/dl Platelet Count 216 K/uL Mean Platelet Volume 10.8 fL Neutrophils (%) (Auto) 89.6 % Lymphocytes (%) (Auto) 3.9 % Monocytes (%) (Auto) 6.1 % Eosinophils (%) (Auto) 0.0 % Basophils (%) (Auto) 0.1 % Neutrophils # (Auto) 22.79 K/uL Lymphocytes # (Auto) 0.99 K/uL Monocytes # (Auto) 1.55 K/uL Eosinophils # (Auto) 0.00 K/uL Basophils # (Auto) 0.03 K/uL RDW Standard Deviation 52.3 fL RDW Coefficient of Variation 15.0 % Immature Granulocyte % (Auto) 0.3 % Immature Granulocyte # (Auto) 0.07 K/uL Prothrombin Time 10.8 SECONDS Prothromb Time International Ratio 1.0 D-Dimer 3460 ug/L FEU Sodium Level 141 mmol/L Potassium Level 4.4 mmol/L Chloride Level 106 mmol/L Carbon Dioxide Level 24 mmol/L Anion Gap 12.0 mmol/L Blood Urea Nitrogen 33 mg/dl Creatinine 1.25 mg/dl Est Creatinine Clear Calc Drug Dose 27.9 ml/min Estimated GFR () 45.4 Estimated GFR (Non- 39.2 BUN/Creatinine Ratio 26.7 Random Glucose 151 mg/dl Calcium Level 9.6 mg/dl Magnesium Level 2.2 mg/dl Total Bilirubin 0.5 mg/dl Aspartate Amino Transf (AST/SGOT) 88 U/L Alanine Aminotransferase (ALT/SGPT) 20 U/L Alkaline Phosphatase 73 U/L Troponin I 18.200 ng/ml 22.700 ng/ml Pro-B-Type Natriuretic Peptide 09690 pg/ml Total Protein 7.2 gm/dl Albumin 3.4 gm/dl Globulin 3.8 gm/dl Albumin/Globulin Ratio 0.9 Thyroid Stimulating Hormone (TSH) 0.879 uIu/ml Urine Color YELLOW Urine Appearance CLOUDY Urine pH 5.0 Urine Specific [place] 1.014 Urine Protein 1+ Urine Glucose (UA) NEG Urine Ketones NEG Urine Occult Blood 1+ Urine Nitrite NEG Urine Bilirubin NEG Urine Urobilinogen NEG Urine Leukocyte Esterase LARGE Urine WBC (Auto) >30 /hpf Urine RBC (Auto) 0-4 /hpf Urine Hyaline Casts (Auto) 1-5 /lpf Urine Epithelial Cells (Auto) 0-5 /lpf Urine Bacteria (Auto) 4+ Total Creatine Kinase 776 U/L Chemistry Specimen Hemolysis Activated Partial Thromboplast Time 30.8 SECONDS Partial Thromboplastin Ratio 1.2 Test 09/16/17 04:37 09/16/17 09:40 White Blood Count 13.62 K/uL Red Blood Count 3.69 M/uL Hemoglobin 11.4 g/dL Hematocrit 35.1 % Mean Corpuscular Volume 95.1 fL Mean Corpuscular Hemoglobin 30.9 pg Mean Corpuscular Hemoglobin Concent 32.5 g/dl Platelet Count 189 K/uL Mean Platelet Volume 10.6 fL Neutrophils (%) (Auto) 82.4 % Lymphocytes (%) (Auto) 7.0 % Monocytes (%) (Auto) 9.0 % Eosinophils (%) (Auto) 1.2 % Basophils (%) (Auto) 0.1 % Neutrophils # (Auto) 11.21 K/uL Lymphocytes # (Auto) 0.96 K/uL Monocytes # (Auto) 1.23 K/uL Eosinophils # (Auto) 0.16 K/uL Basophils # (Auto) 0.02 K/uL RDW Standard Deviation 50.8 fL RDW Coefficient of Variation 14.8 % Immature Granulocyte % (Auto) 0.3 % Immature Granulocyte # (Auto) 0.04 K/uL Activated Partial Thromboplast Time 47.0 SECONDS Partial Thromboplastin Ratio 1.8 Sodium Level 141 mmol/L Potassium Level 3.5 mmol/L Chloride Level 106 mmol/L Carbon Dioxide Level 29 mmol/L Anion Gap 6.0 mmol/L Blood Urea Nitrogen 34 mg/dl Creatinine 1.12 mg/dl Est Creatinine Clear Calc Drug Dose 31.8 ml/min Estimated GFR () 51.9 Estimated GFR (Non- 44.8 BUN/Creatinine Ratio 30.0 Random Glucose 119 mg/dl Estimated Average Glucose 123 mg/dl Hemoglobin A1c 5.9 % Calcium Level 8.6 mg/dl Total Bilirubin 0.4 mg/dl Aspartate Amino Transf (AST/SGOT) 111 U/L Alanine Aminotransferase (ALT/SGPT) 22 U/L Alkaline Phosphatase 59 U/L Troponin I 19.000 ng/ml Total Protein 6.2 gm/dl Albumin 2.7 gm/dl Globulin 3.5 gm/dl Albumin/Globulin Ratio 0.8 Triglycerides Level 71 mg/dl Cholesterol Level 103 mg/dl HDL Cholesterol 54 mg/dl LDL Cholesterol, Calculated 35 mg/dl VLDL Cholesterol, Calculated 14 mg/dl Cholesterol/HDL Ratio 1.9 Procalcitonin 2.12 ng/ml Date/Time Source Procedure Growth Status 09/15/17 15:22 Blood Blood Culture Pending Received 09/15/17 15:20 Blood Blood Culture Pending Received 09/15/17 14:05 Urine , Clean Catch Urine Culture Pending Received Assessment & Plan CHF exacerbation CXR showed moderate cardiomegaly with pulmonary vascular congestion and mild interstitial coarsening without overt pulmonary edema. Pro- BNP on admission She has stopped her Lasix recently because she was going to the bathroom to often Started on Lasix 40mg IV BID Continue monitor Echo pending Elevated Troponin Denies any chest pain Initial troponin 18 on admission then increase to 22 Repeat EKG yesterday shown evidence of a recent septal wall infarct. Cardiology on board Started on IV heparin drip, plavix, asa case discussed with Cardiology dr. Umanzor recommended medical management for now Continue Plavix, asa and Metoprol Echo done this morning, result pending Continue monitor in telemetry Elevated D-dimer CTA chest showed no evidence for PE Venous doppler showed no evidence of DVT Possible Pneumonia CT chest showed multifocal ground glass and consolidative opacities throughout the right lower lobe suggest bronchopneumonia or aspiration pneumonitis. CXR showed Bibasilar opacities suggest atelectasis Elevated WBC 25K, trending down to 13K Elevated procalcitonin Continue IV Ceftriaxone and IV Azithromycin Will repeat CXR in am Continue monitor CBC Abnormal UA Denies any urinary symptoms ( except urinary frequency, not sure if it was related to lasix) Received Ertapenem in the ER Elevated WBC and procalcitonin Urine cx sent today ( mostly will be false negative since pt already received abx) On IV Ceftriaxone Hypothyroidism TSH WNL Continue home dose Levothyroxine Gout Continue home dose allopurinol GI: no GI complaints, hold home dose mesalamine for now DVT ppx on heparin drip Code Status: DNR/DNI Disposition Continue youth nutritional monitor Consultants: cardio Current Inpatient Medications: Current Inpatient Medications Medications (Trade) Dose Ordered Sig/Elen Route Start Time Stop Time Status Last Admin Dose Admin Ioversol (Optiray 320) 100 ml UD PRN IV 09/15/17 15:15 09/19/17 15:14 Furosemide 40 mg/ Syringe 4 ml @ 4 mls/min BID@0800,1999 IV 09/15/17 21:00 10/15/17 20:59 09/16/17 08:56 4 MLS/MIN Allopurinol (Zyloprim Tab) 300 mg DAILY PO 09/16/17 09:00 10/16/17 08:59 09/16/17 08:56 300 MG Levothyroxine Sodium (Synthroid Tab) 75 mcg DAILYBB PO 09/16/17 06:00 10/16/17 06:59 09/16/17 06:14 75 MCG Potassium Chloride (Klor-Con M10) 10 meq BIDM PO 09/15/17 21:00 10/15/17 20:59 09/16/17 08:56 10 MEQ Azithromycin (Zithromax Tab) 500 mg QAM PO 09/16/17 09:00 09/23/17 08:59 09/16/17 08:56 500 MG Ceftriaxone Sodium 1 gm/ Dextrose 50 ml @ 100 mls/hr DAILY@1400 IV 09/16/17 14:00 09/23/17 13:59 Heparin Sodium/ Dextrose 500 ml @ 20 mls/hr Q24H PRN IV 09/15/17 22:45 10/15/17 22:44 09/15/17 23:26 20 MLS/HR Aspirin (Ecotrin Tab) 81 mg QAM PO 09/16/17 09:00 10/16/17 08:59 09/16/17 09:37 81 MG Pantoprazole Sodium (Protonix Tab) 40 mg QAM PO 09/16/17 09:00 10/16/17 08:59 09/16/17 09:37 40 MG Metoprolol Tartrate (Lopressor Tab) 12.5 mg BID PO 09/16/17 21:00 10/16/17 20:59
--- NOTE | 2017-09-16 11:16 | ECHOCARDIOGRAM REPORT ---
*NOTICE TO RECEIVING CONSTITUTION PARTY AGENCY This information is strictly Confidential and protected under [place] law. [place] law prohibits you from making any further disclosure of this information unless further disclosure is expressly permitted by the written consent of the person to whom it pertains or is authorized by law. A general authorization for the release of medical or other information is not sufficient for this purpose. Hospital accepts no responsibility if the information is made available to any other person, INCLUDING THE PATIENT. Interpretation Summary * Name: ISABEL QUEZADA Study Date: 09/16/2017 08:34 AM BP: 116/70 mmHg * Patient Location: C.2T\S\E217\S\1 HR: 80 * : 1930 (M/d/yyy) Gender: Female Height: 60 in * Age: 87 yrs Ethnicity: [place] Weight: 145 lb * Ordering Physician: Hussein Cheng * Referring Physician: Self, Referred * Performed By: Verónica Mauricio RDCS * * Reason For Study: Elevated Troponin * BSA: 1.6 m2 * -- Conclusions -- * The left ventricle is normal in size. * There is mild concentric left ventricular hypertrophy. * There is moderate septal hypokinesis. * Ejection Fraction = 45-50%. * The right ventricular systolic function is normal. * The left atrium is moderately dilated. * Right atrial size is normal. * Mild to moderate valvular aortic stenosis. * Moderate aortic regurgitation. * There is moderate to severe mitral regurgitation. * There is moderate tricuspid regurgitation. Procedure Details * A complete two-dimensional transthoracic echocardiogram was performed (2D, M-mode, Doppler and color flow Doppler). Left Ventricle * The left ventricle is normal in size. * There is mild concentric left ventricular hypertrophy. * Ejection Fraction = 45-50%. * There is moderate septal hypokinesis. Right Ventricle * The right ventricle is normal size. * The right ventricular systolic function is normal. Atria * The left atrium is moderately dilated. * Right atrial size is normal. * There is no evidence of atrial septal defect, but resolution does not allow assessment for a patent foramen ovale. Mitral Valve * The mitral valve leaflets appear thickened, but open well. * There is moderate to severe mitral regurgitation. Tricuspid Valve * The tricuspid valve is not well visualized, but is grossly normal. * There is moderate tricuspid regurgitation. Aortic Valve * Mild to moderate valvular aortic stenosis. * Moderate aortic regurgitation. Pulmonic Valve * The pulmonic valve is not well visualized. Great Vessels * The aortic root and proximal ascending aorta are normal sized. Pericardium/Pleural * There is no pericardial effusion. Left Ventricular Diastolic Function * Grade I diastolic dysfunction, (abnormal relaxation pattern). MMode 2D Measurements and Calculations IVSd 1.2 cm IVSs 1.5 cm LVIDd 2.6 cm LVIDs 1.9 cm LVPWd 1.3 cm LVPWs 1.7 cm IVS/LVPW 0.93 FS 25.4 % EDV(Teich) 23.5 ml ESV(Teich) 11.2 ml EF(Teich) 52.3 % EDV(cubed) 16.7 ml ESV(cubed) 6.9 ml EF(cubed) 58.5 % % IVS thick 25.9 % % LVPW thick 25.4 % LV mass(C)d 97.2 grams LV mass(C)dI 59.7 grams/m\S\2 LV mass(C)s 105.6 grams LV mass(C)sI 64.8 grams/m\S\2 SV(Teich) 12.3 ml SI(Teich) 7.6 ml/m\S\2 SV(cubed) 9.7 ml SI(cubed) 6.0 ml/m\S\2 Ao root diam 2.6 cm Ao root area 5.1 cm\S\2 ACS 0.94 cm LA dimension 3.3 cm LA/Ao 1.3 LVOT diam 1.8 cm LVOT area 2.6 cm\S\2 LVAd ap4 23.5 cm\S\2 LVLd ap4 7.0 cm EDV(MOD-sp4) 66.5 ml EDV(sp4-el) 67.3 ml LVAs ap4 14.2 cm\S\2 LVLs ap4 6.1 cm ESV(MOD-sp4) 27.2 ml ESV(sp4-el) 28.0 ml EF(MOD-sp4) 59.1 % EF(sp4-el) 58.4 % LVAd ap2 23.9 cm\S\2 LVLd ap2 7.4 cm EDV(MOD-sp2) 67.2 ml EDV(sp2-el) 65.8 ml LVAs ap2 14.7 cm\S\2 LVLs ap2 6.6 cm ESV(MOD-sp2) 27.9 ml ESV(sp2-el) 28.0 ml EF(MOD-sp2) 58.5 % EF(sp2-el) 57.5 % LVLd %diff 5.7 % EDV(MOD-bp) 68.8 ml LVLs %diff 6.5 % ESV(MOD-bp) 28.1 ml EF(MOD-bp) 59.1 % SV(MOD-sp4) 39.3 ml SI(MOD-sp4) 24.2 ml/m\S\2 SV(MOD-sp2) 39.3 ml SI(MOD-sp2) 24.1 ml/m\S\2 SV(MOD-bp) 40.6 ml SI(MOD-bp) 25.0 ml/m\S\2 SV(sp4-el) 39.3 ml SI(sp4-el) 24.1 ml/m\S\2 SV(sp2-el) 37.8 ml SI(sp2-el) 23.2 ml/m\S\2 Doppler Measurements and Calculations MV E max bharat 73.0 cm/sec MV A max bharat 126.6 cm/sec MV E/A 0.58 MV V2 max 167.8 cm/sec MV max PG 11.3 mmHg MV V2 mean 75.5 cm/sec MV mean PG 2.9 mmHg MV V2 VTI 42.3 cm MVA(VTI) 1.5 cm\S\2 MV P1/2t max bharat 88.9 cm/sec MV P1/2t 69.8 msec MVA(P1/2t) 3.2 cm\S\2 MV dec slope 373.4 cm/sec\S\2 Ao V2 max 281.4 cm/sec Ao max PG 31.8 mmHg Ao max PG (full) 27.5 mmHg Ao V2 mean 203.3 cm/sec Ao mean PG 18.2 mmHg Ao mean PG (full) 15.8 mmHg Ao V2 VTI 59.5 cm ROBER(I,A) 1.1 cm\S\2 ROBER(I,D) 1.1 cm\S\2 ROBER(V,A) 0.97 cm\S\2 ROBER(V,D) 0.97 cm\S\2 AI max bharat 388.0 cm/sec AI max PG 60.3 mmHg AI dec slope 356.1 cm/sec\S\2 AI P1/2t 319.1 msec LV V1 max PG 4.3 mmHg LV V1 mean PG 2.4 mmHg LV V1 max 103.9 cm/sec LV V1 mean 73.3 cm/sec LV V1 VTI 24.9 cm MR max bharat 517.7 cm/sec MR max PG 107.2 mmHg MR mean bharat 322.8 cm/sec MR mean PG 51.8 mmHg MR VTI 167.4 cm MR PISA 2.0 cm\S\2 MR PISA radius 0.57 cm CO(Ao) 67.7 l/min CI(Ao) 41.6 l/min/m\S\2 SV(Ao) 304.8 ml SI(Ao) 187.2 ml/m\S\2 CO(LVOT) 14.5 l/min CI(LVOT) 8.9 l/min/m\S\2 SV(LVOT) 65.5 ml SI(LVOT) 40.2 ml/m\S\2 PA V2 max 75.7 cm/sec PA max PG 2.3 mmHg PI max bharat 70.6 cm/sec PI max PG 2.0 mmHg PI dec slope 120.0 cm/sec\S\2 PI P1/2t 172.4 msec TR max bharat 284.3 cm/sec
[2017-09-16 11:26] VITALS: BP 91/49; PULSE 78; TEMP 36.8; O2SAT 94
[2017-09-16] MEDS ORDERED: DEXTROSE 5% IV SCH (14:00)
[2017-09-16] MEDS ORDERED: ADD VANTAGE IV SCH (14:00)
[2017-09-16] MEDS ORDERED: CEFTRIAXONE SOD IV SCH (14:00)
[2017-09-16] MEDS: CEFTRIAXONE SOD INJ 1 GM in DEXTROSE 5% ADD-VANTAGE 50ML 50 ML IV SCH (14:09)
[2017-09-16 15:14] VITALS: BP 111/63; PULSE 76; TEMP 36.6; O2SAT 93
[2017-09-16 18:56] VITALS: BP 110/66; PULSE 78; TEMP 36.3; O2SAT 91
[2017-09-16] MEDS: METOPROLOL TARTRATE 25 MG TAB PO SCH (20:06)
[2017-09-16 23:40] VITALS: BP 119/64; PULSE 72; TEMP 36.3; O2SAT 96
[2017-09-17 03:44] VITALS: BP 132/71; PULSE 72; TEMP 37.2; O2SAT 96
[2017-09-17 04:49] LABS: HEMATOCRIT 34.4 % (37-47); MEAN CELL VOLUME 96.1 fL (80-100); MEAN CORPUSCULAR HEMOGLOBIN 30.2 pg (25-34); MEAN PLATELET VOLUME 11.1 fL (7.4-10.4); PLATELET COUNT 177 K/uL (130-400); RED BLOOD COUNT 3.58 M/uL (4.2-5.4); WHITE BLOOD COUNT 10.32 K/uL (4.8-10.8)
[2017-09-17 04:50] LABS: MEAN CORPUSCULAR HGB CONC 31.4 g/dl (32-36)
[2017-09-17 05:07] LABS: CREATININE 1.19 mg/dl (0.60-1.20); POTASSIUM 3.7 mmol/L (3.5-5.1)
[2017-09-17] MEDS: LEVOTHYROXINE 75 MCG TAB PO SCH (06:06)
--- NOTE | 2017-09-17 07:30 | DIAGNOSTIC IMAGING REPORT ---
CHEST ONE VIEW PORTABLE CLINICAL HISTORY: Shortness of breath. COMPARISON STUDY: 09/15/2017 FINDINGS: The heart is the upper limits of normal in size. There is aortic tortuosity. There is elevation of the interstitium asymmetric on the right. There are more focal airspace opacities at the right lower lobe. Diagnostic considerations include asymmetric edema, or a pneumonia. Clinical and radiographic follow-up is recommended.[ No pleural effusions are visualized IMPRESSION: 1. Elevation interstitium with more focal interstitial airspace opacities on the right. Diagnostic considerations include asymmetric edema or a pneumonia. Clinical and radiographic follow-up is recommended. Electronically signed by: Matt Riojas M.D. 09/17/2017 7:28 AM Dictated Date/Time: 09/17/2017 7:26 AM
[2017-09-17] MEDS: ASPIRIN 81 MG ECTAB PO SCH (07:53)
[2017-09-17] MEDS: ALLOPURINOL 300 MG TAB PO SCH (07:53)
[2017-09-17] MEDS: PANTOprazole SOD 40 MG TAB PO SCH (07:53)
[2017-09-17] MEDS: POTASSIUM CHLORIDE 10 MEQ TABCR PO SCH (07:54)
[2017-09-17] MEDS: FUROSEMIDE INJ 40 MG in SYRINGE 0 ML IV SCH (07:54)
[2017-09-17] MEDS: AZITHROMYCIN 250 MG TAB PO SCH (07:54)
[2017-09-17] MEDS: METOPROLOL TARTRATE 25 MG TAB PO SCH ×2 (07:55→20:47)
[2017-09-17 07:58] VITALS: BP 127/74; PULSE 70; TEMP 37; O2SAT 94
[2017-09-17 11:27] VITALS: BP 120/63; PULSE 66; TEMP 36.7; O2SAT 94
[2017-09-17] MEDS ORDERED: CLOPIDOGREL BISULFATE 75 MG TAB PO ONE (12:00)
--- NOTE | 2017-09-17 12:23 | CARDIOLOGY PROGRESS NOTE ---
DATE: 09/17/2017 FOLLOWUP VISIT SUBJECTIVE: The patient is an 87-year-old female admitted with urinary tract infection and also having a non-STEMI infarct. She has been on antibiotics for over 24 hours and is feeling much improved. She has no symptoms of chest pain or shortness of breath. She is sitting in her chair comfortably, eating lunch. OBJECTIVE: VITAL SIGNS: Blood pressure 120/60 and pulse is regular at 65. She is afebrile. GENERAL: She is alert and oriented, in no acute distress. HEENT: She is normocephalic. Pupils are equal and reactive to light. Extraocular muscles are intact bilaterally. Mucous membranes are moist. NECK: The neck veins are flat. Carotids have good upstrokes bilaterally without bruits. Thyroid is nonpalpable. RESPIRATORY: Breath sounds equal bilaterally and clear to auscultation. CARDIOVASCULAR: Heart has a regular rhythm. Normal S1 and S2. No S3 or S4. No cardiac rubs or murmurs. GASTROINTESTINAL: Abdomen is soft and nontender without organomegaly. EXTREMITIES: Free of edema, digit clubbing, or cyanosis. NEUROLOGIC: Grossly intact. SKIN: Warm to touch. LYMPH NODES: Negative to palpation. LABORATORY DATA: Creatinine is 1.19 and potassium is 3.7. Hemoglobin is 10.8 and WBC count is 10.3. IMPRESSION: 1. Urinary tract infection. 2. Recent septal wall infarct. 3. Mild aortic stenosis. 4. Mitral regurgitation. 5. Treated hypothyroidism. 6. Diabetes mellitus. RECOMMENDATIONS: The patient is clinically stable. At this point, I think we should treat her infarct conservatively. If she has additional chest pain or becomes unstable, then a more invasive approach is indicated.
[2017-09-17] MEDS: CEFTRIAXONE SOD INJ 1 GM in DEXTROSE 5% ADD-VANTAGE 50ML 50 ML IV SCH (13:37)
[2017-09-17 15:16] VITALS: BP 148/81; PULSE 69; TEMP 36.5; O2SAT 96
--- NOTE | 2017-09-17 15:42 | Progress Note ---
Medicine Progress Note Date & Time of Visit: Sep 17, 2017 at 10:21. Subjective Pt was seen and examined Lying in bed with no distress Pt said that she feels much better She said that she is getting her strength back She said that she is able to lift herself from the chair denies any chest pain, palpitation, dizziness and SOB Objective Last 8 Hrs Date Time Temp Pulse Resp B/P (MAP) Pulse Ox O2 Delivery O2 Flow Rate FiO2 09/17/17 15:16 36.5 69 18 148/81 (103) 96 Room Air 09/17/17 12:00 Room Air 09/17/17 11:27 36.7 66 18 120/63 (82) 94 Room Air 09/17/17 08:00 Room Air 09/17/17 07:58 37.0 70 18 127/74 (91) 94 Room Air Physical Exam: General- No acute distress Head- atraumatic Eyes- PERRL, EOMI ENT- oropharynx clear Neck- supple, no JVD Lungs- clear to auscultation Heart- regular rhythm; +systolic murmur Abdomen- normal bowel sounds, soft, nontender Extremities- +edema, no calf tenderness Neuro- alert, oriented x 3; PERRL, EOMI; no facial palsy; no dysarthria Skin- warm & dry Laboratory Results: Last 24 Hours Test 09/17/17 04:32 White Blood Count 10.32 K/uL Red Blood Count 3.58 M/uL Hemoglobin 10.8 g/dL Hematocrit 34.4 % Mean Corpuscular Volume 96.1 fL Mean Corpuscular Hemoglobin 30.2 pg Mean Corpuscular Hemoglobin Concent 31.4 g/dl RDW Standard Deviation 53.1 fL RDW Coefficient of Variation 15.2 % Platelet Count 177 K/uL Mean Platelet Volume 11.1 fL Activated Partial Thromboplast Time 51.8 SECONDS Partial Thromboplastin Ratio 2.0 Sodium Level 141 mmol/L Potassium Level 3.7 mmol/L Chloride Level 106 mmol/L Carbon Dioxide Level 28 mmol/L Anion Gap 7.0 mmol/L Blood Urea Nitrogen 39 mg/dl Creatinine 1.19 mg/dl Est Creatinine Clear Calc Drug Dose 29.9 ml/min Estimated GFR () 48.2 Estimated GFR (Non- 41.6 BUN/Creatinine Ratio 33.0 Random Glucose 107 mg/dl Calcium Level 8.0 mg/dl Assessment & Plan CHF exacerbation CXR showed moderate cardiomegaly with pulmonary vascular congestion and mild interstitial coarsening without overt pulmonary edema. Pro- BNP on admission [id number] She has stopped her Lasix recently because she was going to the bathroom to often Continue Lasix 40mg IV BID Repeat CXR today showed focal interstitial airspace opacities on the right Continue monitor Recent Echo showed * The left ventricle is normal in size. * There is mild concentric left ventricular hypertrophy. * There is moderate septal hypokinesis. * Ejection Fraction = 45-50%. * The right ventricular systolic function is normal. * The left atrium is moderately dilated. * Right atrial size is normal. * Mild to moderate valvular aortic stenosis. * Moderate aortic regurgitation. * There is moderate to severe mitral regurgitation. * There is moderate tricuspid regurgitation. Elevated Troponin Denies any chest pain Initial troponin 18 on admission then increase to 22 Repeat EKG yesterday shown evidence of a recent septal wall infarct. Cardiology on board case discussed with Cardiology dr. Umanzor recommended medical management for now Continue Plavix, asa and Metoprol and heparin drip Continue monitor in telemetry Elevated D-dimer CTA chest showed no evidence for PE Venous doppler showed no evidence of DVT Possible Pneumonia CT chest showed multifocal ground glass and consolidative opacities throughout the right lower lobe suggest bronchopneumonia or aspiration pneumonitis. CXR showed Bibasilar opacities suggest atelectasis Repeat CXR today showed focal interstitial airspace opacities on the right Elevated WBC 25K, trending down to normal Elevated procalcitonin Continue IV Ceftriaxone and IV Azithromycin Continue monitor CBC UTI Denies any urinary symptoms ( except urinary frequency, not sure if it was related to lasix) Received Ertapenem in the ER Elevated WBC and procalcitonin WBC back to normal Urine cx grew gram negative bacilli follow up sensitivity Continue IV Ceftriaxone Hypothyroidism TSH WNL Continue home dose Levothyroxine Gout Continue home dose allopurinol GI: no GI complaints, hold home dose mesalamine for now DVT ppx on heparin drip Code Status: DNR/DNI Disposition Continue telemetry monitor Consultants: cardio Current Inpatient Medications: Current Inpatient Medications Medications (Trade) Dose Ordered Sig/Elen Route Start Time Stop Time Status Last Admin Dose Admin Ioversol (Optiray 320) 100 ml UD PRN IV 09/15/17 15:15 09/19/17 15:14 Allopurinol (Zyloprim Tab) 300 mg DAILY PO 09/16/17 09:00 10/16/17 08:59 09/17/17 07:53 300 MG Levothyroxine Sodium (Synthroid Tab) 75 mcg DAILYBB PO 09/16/17 06:00 10/16/17 06:59 09/17/17 06:06 75 MCG Azithromycin (Zithromax Tab) 500 mg QAM PO 09/16/17 09:00 09/23/17 08:59 09/17/17 07:54 500 MG Ceftriaxone Sodium 1 gm/ Dextrose 50 ml @ 100 mls/hr DAILY@1400 IV 09/16/17 14:00 09/23/17 13:59 09/17/17 13:37 100 MLS/HR Heparin Sodium/ Dextrose 500 ml @ 20 mls/hr Q24H PRN IV 09/15/17 22:45 10/15/17 22:44 09/15/17 23:26 20 MLS/HR Aspirin (Ecotrin Tab) 81 mg QAM PO 09/16/17 09:00 10/16/17 08:59 09/17/17 07:53 81 MG Pantoprazole Sodium (Protonix Tab) 40 mg QAM PO 09/16/17 09:00 10/16/17 08:59 09/17/17 07:53 40 MG Metoprolol Tartrate (Lopressor Tab) 12.5 mg BID PO 09/16/17 21:00 10/16/17 20:59 09/17/17 07:55 12.5 MG Clopidogrel Bisulfate (plAVix TAB) 75 mg QAM PO 09/18/17 09:00 10/18/17 08:59 Furosemide (Lasix Tab) 40 mg QAM PO 09/18/17 09:00 10/18/17 08:59 Potassium Chloride (Klor-Con M10) 10 meq DAILY PO 09/18/17 09:00 10/15/17 20:59
[2017-09-17 19:45] VITALS: BP 127/75; PULSE 75; TEMP 36.7; O2SAT 96
[2017-09-18 00:09] VITALS: BP 134/71; PULSE 67; TEMP 36.9; O2SAT 92
[2017-09-18] MEDS: HEPARIN 25,000 UNIT/500ML D5W 500 ML IV PRN (02:04)
[2017-09-18 04:24] VITALS: BP 115/71; PULSE 66; TEMP 36.8; O2SAT 95
[2017-09-18 04:50] LABS: HEMATOCRIT 34.4 % (37-47); MEAN CELL VOLUME 96.1 fL (80-100); MEAN CORPUSCULAR HEMOGLOBIN 30.2 pg (25-34); MEAN CORPUSCULAR HGB CONC 31.4 g/dl (32-36); MEAN PLATELET VOLUME 10.8 fL (7.4-10.4); PLATELET COUNT 174 K/uL (130-400); RED BLOOD COUNT 3.58 M/uL (4.2-5.4); WHITE BLOOD COUNT 9.83 K/uL (4.8-10.8)
[2017-09-18] MEDS: LEVOTHYROXINE 75 MCG TAB PO SCH (05:55)
[2017-09-18 07:07] VITALS: BP 134/76; PULSE 70; TEMP 36.4; O2SAT 96
[2017-09-18] MEDS: ALLOPURINOL 300 MG TAB PO SCH (09:01)
[2017-09-18] MEDS: METOPROLOL TARTRATE 25 MG TAB PO SCH ×2 (09:02→21:11)
[2017-09-18] MEDS: CLOPIDOGREL BISULFATE 75 MG TAB PO SCH (09:02)
[2017-09-18] MEDS: FUROSEMIDE 40 MG TAB PO SCH (09:02)
[2017-09-18] MEDS: ASPIRIN 81 MG ECTAB PO SCH (09:02)
[2017-09-18] MEDS: PANTOprazole SOD 40 MG TAB PO SCH (09:02)
[2017-09-18] MEDS: AZITHROMYCIN 250 MG TAB PO SCH (09:02)
[2017-09-18] MEDS: POTASSIUM CHLORIDE 10 MEQ TABCR PO SCH (09:03)
[2017-09-18 11:01] VITALS: BP 114/71; PULSE 67; TEMP 36.8; O2SAT 94
--- NOTE | 2017-09-18 12:06 | Clinical Documentation Query ---
QUERY 1 OF [address] SMITH, In your clinical opinion is this patient being managed for: ( ) Acute AZ ( ) Not Agree ( ) Other explanation of clinical findings (Please Explain) ( ) Unable to determine (Please Define) ( ) Need to Discuss The medical record reflects the following clinical findings, treatment, and risk factors. Clinical Indicators: 87 yo male presenting with worsening LE edema and weakness. Found to have elevated troponins: trops 18.2/22.7/19/15.7. Repeated EKG showed ST elevation, consider injury pattern and T wave abnormality, consider anterior ischemia. Progress note indicates "evidence of recent septal wall infarct" . Treatment: IV heparin, ECHO, cardiology consult, Plavix, metoprolol, tele monitoring. Risk Factors: age, DM, CHF exacerbation, HTN Medicare defines an acute AZ as one which has occurred within four (4) weeks of admission. The physician may render an opinion regarding a "possible" or "probable" AZ based on the patient's history of symptoms, EKG changes and/or other diagnostic evidence. "Within four weeks" must be explicitly documented-- terminology such as "recent" and "remote" is not sufficient. QUERY 2 OF 3 In your clinical opinion is this patient being managed for: ( ) Acute on chronic combined systolic and diastolic CHF ( ) Acute on chronic diastolic CHF ( ) Acute on chronic systolic CHF ( ) Not Agree ( ) Other explanation of clinical findings (Please Explain) ( ) Unable to determine (Please Define) ( ) Need to Discuss The medical record reflects the following clinical findings, treatment, and risk factors. Clinical Indicators: Presented with "CHF exacerbation." ECHO showed EF 45-50% with grade I diastolic dysfunction. Treatment: tele, I/O, daily wts, IV lasix, ECHO, cardiology consult, metoprolol, Risk Factors: age, DM, HTN, pneumonia Severity-adjusted DRGs require coding specificity. "Congestive" heart failure is a non-specific diagnosis. Documentation should specify "acute vs. chronic" and "systolic vs. diastolic." QUERY 3 OF 3 In your clinical opinion is this patient being managed for: ( ) Chronic kidney disease, stage 3 ( ) Not Agree ( ) Other explanation of clinical findings (Please Explain) ( ) Unable to determine (Please Define) ( ) Need to Discuss The medical record reflects the following clinical findings, treatment, and risk factors. Clinical Indicators: GFR range of 39.2- 44.8 Treatment: monitor PRP, treat comorbid conditions Risk Factors: age, HTN, DM Please clarify and document your clinical opinion in the progress notes and discharge summary. Terms such as "probable", "suspected", "likely", "questionable", "possible", or "still to be ruled out" are acceptable. IF IN AGREEMENT, YOU MUST DOCUMENT ABOVE DIAGNOSTIC STATEMENT IN DAILY PROGRESS NOTES AND DISCHARGE SUMMARY. This document is not part of the patient's record. Thank You, Jigna Madsen, IVAN [phone]
[2017-09-18] MEDS: CEFTRIAXONE SOD INJ 1 GM in DEXTROSE 5% ADD-VANTAGE 50ML 50 ML IV SCH (14:31)
--- NOTE | 2017-09-18 14:49 | Cardiology Follow-Up ---
Subjective General Date of Service: Sep 18, 2017. Chief Complaint: follow up shortness of breath Pt evaluation today including: conversation w/ patient, physical exam History of Present Illness The patient is a 87 year old female seen in follow up. Patient describes feeling markedly improved. Better energy levels. SOB resolved. Denies recent chest pain, in hospital or prior to hospital. Telemetry reveals SR. EKG, SR T wave inversions in the precordial leads consistent with evolved LAD territory PR. Allergies Coded Allergies: [facility]ir[facility] ([facility] 09/16/17: Dr. Umanzor spoke with patient, OK to give. Monitor. Thought GI related. AJ Bisphosphonates (Verified Allergy, Unknown, ., 01/20/12) Mesalamine (Verified Allergy, Unknown, ., 01/20/12) Metformin (Verified Allergy, Unknown, ., 09/04/13) NSAIDs (Verified Allergy, Unknown, ., 01/20/12) Social History Smoking Status: Never Smoker Hx Tobacco Use In Past Year?: No Hx Alcohol Use - Type And Amou: No Hx Substance Use - Type And Am: No Problem List Medical Problems: (1) Elevated brain natriuretic peptide (BNP) level Status: Acute (2) Elevated troponin Status: Acute (3) Lower extremity edema Status: Acute (4) PNA (pneumonia) Status: Acute (5) UTI (urinary tract infection) Status: Acute Physical Exam Vital Signs Last Vital Signs Documentation Date Time Temp Pulse Resp B/P (MAP) Pulse Ox O2 Delivery O2 Flow Rate FiO2 09/18/17 12:00 Room Air 09/18/17 11:01 36.8 67 20 114/71 (85) 94 Physical Exam Constitutional: Level of Distress: NAD Head: normocephalic ENMT: normal ENT inspection Neck: supple Lungs: Auscultation: no wheezing, no rales/crackles, no rhonchi Cardiovascular: Heart Auscultation: RRR, no murmurs, II/ EVELYN Abdomen: Inspection & Palpation: soft, non-distended Extremities: pertinent finding (1+ bilateral LE edema ) Neurologic: Gait & Station: pertinent finding (no focal deficits ) Assessment and Plan Assessment and Plan Impression: 87 year old female 1. Acute systolic heart failure. 2. Myocardial infarction, based on evolution of EKG , septal hypokinesis on echo , elevated troponin 3. UTI Plan: DC UF heparin gtt. Continue aspirin , clopidogrel, metoprolol. Add atorvastatin and lisinopril. Continue furosemide 40 mg PO daily. If develops angina off of heparin gtt, will reassess possibility of invasive approach rather than medical RX. Laboratory Results Last 24 Hours Test 09/18/17 04:41 White Blood Count 9.83 K/uL Red Blood Count 3.58 M/uL Hemoglobin 10.8 g/dL Hematocrit 34.4 % Mean Corpuscular Volume 96.1 fL Mean Corpuscular Hemoglobin 30.2 pg Mean Corpuscular Hemoglobin Concent 31.4 g/dl RDW Standard Deviation 53.4 fL RDW Coefficient of Variation 15.2 % Platelet Count 174 K/uL Mean Platelet Volume 10.8 fL Activated Partial Thromboplast Time 51.2 SECONDS Partial Thromboplastin Ratio 2.0
[2017-09-18] MEDS ORDERED: ATORVASTATIN 20 MG TAB PO ONE (15:00)
[2017-09-18] MEDS ORDERED: LISINOPRIL 5 MG TAB PO ONE (15:00)
[2017-09-18 15:05] VITALS: BP 98/57; PULSE 62; TEMP 36.8; O2SAT 96
--- NOTE | 2017-09-18 16:55 | Progress Note ---
Medicine Progress Note Date & Time of Visit: Sep 18, 2017 at 11:41. Subjective Pt was seen and examined Lying in bed with no distress Pt said that She feels much better She said that her strength is better Denies any chest pain, palpitation, dizziness and SOB Objective Last 8 Hrs Date Time Temp Pulse Resp B/P (MAP) Pulse Ox O2 Delivery O2 Flow Rate FiO2 09/18/17 16:00 Room Air 09/18/17 15:05 36.8 62 18 98/57 (71) 96 Room Air 09/18/17 12:00 Room Air 09/18/17 11:01 36.8 67 20 114/71 (85) 94 Room Air Physical Exam: General- No acute distress Head- atraumatic Eyes- PERRL, EOMI ENT- oropharynx clear Neck- supple, no JVD Lungs- clear to auscultation Heart- regular rhythm; +systolic murmur Abdomen- normal bowel sounds, soft, nontender Extremities- +edema, no calf tenderness Neuro- alert, oriented x 3; PERRL, EOMI; no facial palsy; no dysarthria Skin- warm & dry Laboratory Results: Last 24 Hours Test 09/18/17 04:41 White Blood Count 9.83 K/uL Red Blood Count 3.58 M/uL Hemoglobin 10.8 g/dL Hematocrit 34.4 % Mean Corpuscular Volume 96.1 fL Mean Corpuscular Hemoglobin 30.2 pg Mean Corpuscular Hemoglobin Concent 31.4 g/dl RDW Standard Deviation 53.4 fL RDW Coefficient of Variation 15.2 % Platelet Count 174 K/uL Mean Platelet Volume 10.8 fL Activated Partial Thromboplast Time 51.2 SECONDS Partial Thromboplastin Ratio 2.0 Date/Time Source Procedure Growth Status 09/18/17 10:00 Stool C.difficile Toxin B Gene (PCR) - Final No C. difficile toxin B gene detected Complete Assessment & Plan CHF exacerbation CXR showed moderate cardiomegaly with pulmonary vascular congestion and mild interstitial coarsening without overt pulmonary edema. Pro- BNP on admission [address]164 She has stopped her Lasix recently because she was going to the bathroom to often Continue Lasix 40mg IV BID Repeat CXR today showed focal interstitial airspace opacities on the right 09/18 Clinically improved Lasix changed to 40mg daily Continue monitor in tele Continue monitor Recent Echo showed * The left ventricle is normal in size. * There is mild concentric left ventricular hypertrophy. * There is moderate septal hypokinesis. * Ejection Fraction = 45-50%. * The right ventricular systolic function is normal. * The left atrium is moderately dilated. * Right atrial size is normal. * Mild to moderate valvular aortic stenosis. * Moderate aortic regurgitation. * There is moderate to severe mitral regurgitation. * There is moderate tricuspid regurgitation. Elevated Troponin Denies any chest pain Initial troponin 18 on admission then increase to 22 Repeat EKG yesterday shown evidence of a recent septal wall infarct. Cardiology on board case discussed with Cardiology dr. Umanzor recommended medical management for now Continue Plavix, asa and Metoprol and heparin drip 09/18 d/C heparin drip Continue Plavix, asa, metoprolol Add atorvastatin and lisinopril. If develop any angina, consider cardiac cath as per cardio Continue monitor in telemetry Weakness PT/OT fall precaution OK to discharge home with home health as per PT Elevated D-dimer CTA chest showed no evidence for PE Venous doppler showed no evidence of DVT Possible Pneumonia CT chest showed multifocal ground glass and consolidative opacities throughout the right lower lobe suggest bronchopneumonia or aspiration pneumonitis. CXR showed Bibasilar opacities suggest atelectasis Repeat CXR today showed focal interstitial airspace opacities on the right Elevated WBC 25K, trending down to normal Elevated procalcitonin Continue IV Ceftriaxone and IV Azithromycin Continue monitor CBC UTI Denies any urinary symptoms ( except urinary frequency, not sure if it was related to lasix) Received Ertapenem in the ER Elevated WBC and procalcitonin WBC back to normal Urine cx grew gram negative bacilli follow up sensitivity Continue IV Ceftriaxone 09/18 D/C IV ceftriaxone Will start on PO cipro to complete 7 days course of abx Hypothyroidism TSH WNL Continue home dose Levothyroxine Gout Continue home dose allopurinol GI: no GI complaints, hold home dose mesalamine for now DVT ppx D/C heparin drip Starting on Heparin subQ Code Status: DNR/DNI 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 d/c tomorrow Consultants: cardio Current Inpatient Medications: Current Inpatient Medications Medications (Trade) Dose Ordered Sig/Elen Route Start Time Stop Time Status Last Admin Dose Admin Ioversol (Optiray 320) 100 ml UD PRN IV 09/15/17 15:15 09/19/17 15:14 Allopurinol (Zyloprim Tab) 300 mg DAILY PO 09/16/17 09:00 10/16/17 08:59 09/18/17 09:01 300 MG Levothyroxine Sodium (Synthroid Tab) 75 mcg DAILYBB PO 09/16/17 06:00 10/16/17 06:59 09/18/17 05:55 75 MCG Azithromycin (Zithromax Tab) 500 mg QAM PO 09/16/17 09:00 09/23/17 08:59 09/18/17 09:02 500 MG Ceftriaxone Sodium 1 gm/ Dextrose 50 ml @ 100 mls/hr DAILY@1400 IV 09/16/17 14:00 09/23/17 13:59 09/18/17 14:31 100 MLS/HR Aspirin (Ecotrin Tab) 81 mg QAM PO 09/16/17 09:00 10/16/17 08:59 09/18/17 09:02 81 MG Pantoprazole Sodium (Protonix Tab) 40 mg QAM PO 09/16/17 09:00 10/16/17 08:59 09/18/17 09:02 40 MG Metoprolol Tartrate (Lopressor Tab) 12.5 mg BID PO 09/16/17 21:00 10/16/17 20:59 09/18/17 09:02 12.5 MG Clopidogrel Bisulfate (plAVix TAB) 75 mg QAM PO 09/18/17 09:00 10/18/17 08:59 09/18/17 09:02 75 MG Furosemide (Lasix Tab) 40 mg QAM PO 09/18/17 09:00 10/18/17 08:59 09/18/17 09:02 40 MG Potassium Chloride (Klor-Con M10) 10 meq DAILY PO 09/18/17 09:00 10/15/17 20:59 09/18/17 09:03 10 MEQ Lisinopril (Zestril Tab) 5 mg QAM PO 09/19/17 09:00 10/19/17 08:59 Atorvastatin Calcium (Lipitor Tab) 20 mg QAM PO 09/19/17 09:00 10/19/17 08:59 Heparin Sodium (Porcine) (Heparin Sq 5000 Unit/0.5ml) 5,000 unit Q12 SQ 09/19/17 09:00 10/19/17 08:59
[2017-09-18] MEDS: LOPERAMIDE HCL 2 MG CAP PO PRN (19:35)
[2017-09-18 20:03] VITALS: BP 134/81; PULSE 75; TEMP 36; O2SAT 98
[2017-09-19] VITALS (9 sets, daily range): BP systolic 93–121; BP diastolic 53–68; PULSE 58–72; TEMP 36.3–36.8; O2SAT 91–97
[2017-09-19 04:36] LABS: HEMATOCRIT 34.1 % (37-47); MEAN CELL VOLUME 97.2 fL (80-100); MEAN CORPUSCULAR HEMOGLOBIN 30.5 pg (25-34); MEAN PLATELET VOLUME 10.8 fL (7.4-10.4); PLATELET COUNT 177 K/uL (130-400); RED BLOOD COUNT 3.51 M/uL (4.2-5.4); WHITE BLOOD COUNT 8.09 K/uL (4.8-10.8)
[2017-09-19 04:38] LABS: MEAN CORPUSCULAR HGB CONC 31.4 g/dl (32-36)
[2017-09-19 04:51] LABS: BUN/CREATININE RATIO 31.4 (10-20); CALCIUM 8.1 mg/dl (8.5-10.1); CREATININE 1.08 mg/dl (0.60-1.20); POTASSIUM 3.8 mmol/L (3.5-5.1)
[2017-09-19 04:59] LABS: ALB/GLOB RATIO 0.6 (0.9-2)
[2017-09-19] MEDS: LEVOTHYROXINE 75 MCG TAB PO SCH (05:39)
[2017-09-19] MEDS: AZITHROMYCIN 250 MG TAB PO SCH (08:48)
[2017-09-19] MEDS: POTASSIUM CHLORIDE 10 MEQ TABCR PO SCH (08:48)
[2017-09-19] MEDS: FUROSEMIDE 40 MG TAB PO SCH (08:48)
[2017-09-19] MEDS: LISINOPRIL 5 MG TAB PO SCH (08:49)
[2017-09-19] MEDS: ALLOPURINOL 300 MG TAB PO SCH (08:49)
[2017-09-19] MEDS: ATORVASTATIN 20 MG TAB PO SCH (08:49)
[2017-09-19] MEDS: CLOPIDOGREL BISULFATE 75 MG TAB PO SCH (08:50)
[2017-09-19] MEDS: METOPROLOL TARTRATE 25 MG TAB PO SCH ×2 (08:50→20:56)
[2017-09-19] MEDS: CIPROFLOXACIN 250 MG TAB PO SCH ×2 (08:50→20:56)
[2017-09-19] MEDS: PANTOprazole SOD 40 MG TAB PO SCH (08:50)
[2017-09-19] MEDS: ASPIRIN 81 MG ECTAB PO SCH (08:50)
[2017-09-19] MEDS: HEPARIN SOD 5000 UNIT/0.5 ML CARP SQ SCH ×2 (08:54→21:00)
[2017-09-19] MEDS: LOPERAMIDE HCL 2 MG CAP PO PRN ×2 (10:25→20:56)
--- NOTE | 2017-09-19 10:44 | PROGRESS NOTE ---
DATE: 09/19/2017 FOLLOWUP VISIT SUBJECTIVE: The patient is an 87-year-old female admitted with urinary tract and a non-STEMI infarct. She has been slowly improving and has been ambulating in her room without difficulty. She has no new complaints today. OBJECTIVE: GENERAL: She is alert and oriented, in no acute distress. VITAL SIGNS: Blood pressure is 125/60 and pulse is regular at 65. She is afebrile. HEENT: She is normocephalic. Pupils are equal and reactive to light. Extraocular muscles are intact bilaterally. NECK: The neck veins are flat. Carotids have good upstrokes bilaterally without bruits. Thyroid is nonpalpable. RESPIRATORY: Breath sounds equal bilaterally and clear to auscultation. CARDIOVASCULAR: Heart has a regular rhythm. Normal S1 and S2. No S3 or S4. No cardiac rubs or murmurs. GASTROINTESTINAL: Abdomen is soft and nontender without organomegaly. EXTREMITIES: Free of edema, digit clubbing, or cyanosis. NEUROLOGIC: Grossly intact. SKIN: Warm to touch. LYMPH NODES: Negative to palpation. IMPRESSION: 1. Urinary tract infection. 2. Recent septal wall infarct. 3. Mild aortic stenosis. 4. Mitral regurgitation. 5. Diabetes mellitus. 6. Treated hypothyroidism. RECOMMENDATIONS: Clinically, the patient is slowly improving. I have reviewed her records from [facility] and it appears that she was on 80 mg of Lasix once a day. Here in the hospital, we started her on 40 mg of Lasix daily. I believe that this may be the appropriate amount for this patient. Otherwise, her other medications are stable and should remain the same including dual antiplatelet therapy and the LALO inhibitor started by Dr. Hamilton yesterday. I will discontinue her Ann today. She can start physical therapy and if she does well, I anticipate home soon.
--- NOTE | 2017-09-19 19:20 | Progress Note ---
Medicine Progress Note Date & Time of Visit: Sep 19, 2017 at 13:08. Subjective Pt was seen and examined Lying in bed with no distress Denies any chest pain, palpitation, dizziness and SOB Objective Last 8 Hrs Date Time Temp Pulse Resp B/P (MAP) Pulse Ox O2 Delivery O2 Flow Rate FiO2 09/19/17 16:00 93 Room Air 09/19/17 15:34 36.8 70 20 113/63 (80) 93 Room Air 09/19/17 12:00 Room Air 09/19/17 11:55 36.7 70 18 93/57 (69) 91 Room Air Physical Exam: General- No acute distress Head- atraumatic Eyes- PERRL, EOMI ENT- oropharynx clear Neck- supple, no JVD Lungs- clear to auscultation Heart- regular rhythm; +systolic murmur Abdomen- normal bowel sounds, soft, nontender Extremities- +edema, no calf tenderness Neuro- alert, oriented x 3; PERRL, EOMI; no facial palsy; no dysarthria Skin- warm & dry Laboratory Results: Last 24 Hours Test 09/19/17 04:23 White Blood Count 8.09 K/uL Red Blood Count 3.51 M/uL Hemoglobin 10.7 g/dL Hematocrit 34.1 % Mean Corpuscular Volume 97.2 fL Mean Corpuscular Hemoglobin 30.5 pg Mean Corpuscular Hemoglobin Concent 31.4 g/dl RDW Standard Deviation 53.4 fL RDW Coefficient of Variation 15.2 % Platelet Count 177 K/uL Mean Platelet Volume 10.8 fL Sodium Level 142 mmol/L Potassium Level 3.8 mmol/L Chloride Level 108 mmol/L Carbon Dioxide Level 28 mmol/L Anion Gap 6.0 mmol/L Blood Urea Nitrogen 34 mg/dl Creatinine 1.08 mg/dl Est Creatinine Clear Calc Drug Dose 32.9 ml/min Estimated GFR () 54.2 Estimated GFR (Non- 46.8 BUN/Creatinine Ratio 31.4 Random Glucose 94 mg/dl Calcium Level 8.1 mg/dl Total Bilirubin 0.2 mg/dl Aspartate Amino Transf (AST/SGOT) 24 U/L Alanine Aminotransferase (ALT/SGPT) 15 U/L Alkaline Phosphatase 53 U/L Troponin I 3.340 ng/ml Total Protein 6.0 gm/dl Albumin 2.3 gm/dl Globulin 3.7 gm/dl Albumin/Globulin Ratio 0.6 Assessment & Plan Acute systolic HF exacerbation CXR showed moderate cardiomegaly with pulmonary vascular congestion and mild interstitial coarsening without overt pulmonary edema. Pro- BNP on admission [address]452 She has stopped her Lasix recently because she was going to the bathroom to often Continue Lasix 40mg IV BID Repeat CXR today showed focal interstitial airspace opacities on the right 09/19 Clinically improved Continue lasix 40mg daily Continue monitor volume status since pt was taking 80mg daily outpatient Continue monitor in tele case discussed with cardiology dr. Umanzor Recent Echo showed * The left ventricle is normal in size. * There is mild concentric left ventricular hypertrophy. * There is moderate septal hypokinesis. * Ejection Fraction = 45-50%. * The right ventricular systolic function is normal. * The left atrium is moderately dilated. * Right atrial size is normal. * Mild to moderate valvular aortic stenosis. * Moderate aortic regurgitation. * There is moderate to severe mitral regurgitation. * There is moderate tricuspid regurgitation. Elevated Troponin Denies any chest pain Initial troponin 18 on admission then increase to 22 Repeat EKG yesterday shown evidence of a recent septal wall infarct. Cardiology on board case discussed with Cardiology dr. Umanzor recommended medical management for now Continue Plavix, asa and Metoprol and heparin drip 09/19 d/C heparin drip Continue Plavix, asa, metoprolol Starting on atorvastatin and lisinopril. If develop any angina, consider cardiac cath as per cardio Continue monitor in telemetry Weakness PT/OT fall precaution OK to discharge home with home health as per PT Elevated D-dimer CTA chest showed no evidence for PE Venous doppler showed no evidence of DVT Possible Pneumonia CT chest showed multifocal ground glass and consolidative opacities throughout the right lower lobe suggest bronchopneumonia or aspiration pneumonitis. CXR showed Bibasilar opacities suggest atelectasis Repeat CXR today showed focal interstitial airspace opacities on the right Elevated WBC 25K, trending down to normal Elevated procalcitonin Continue IV Ceftriaxone and IV Azithromycin D/C IV rocephin Azithromycin changed to PO Clinically improved UTI Denies any urinary symptoms ( except urinary frequency, not sure if it was related to lasix) Received Ertapenem in the ER Elevated WBC and procalcitonin WBC back to normal Urine cx grew gram negative bacilli follow up sensitivity Continue IV Ceftriaxone 09/19 D/C IV ceftriaxone Continue PO cipro to complete 7 days course of abx Stable CKD stage 3 Creatine stable Continue monitor BMP Hypothyroidism TSH WNL Continue home dose Levothyroxine Gout Continue home dose allopurinol GI: no GI complaints, hold home dose mesalamine for now DVT px on Heparin subQ Code Status: DNR/DNI 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 Discharge once medically stable Consultants: cardio Current Inpatient Medications: Current Inpatient Medications Medications (Trade) Dose Ordered Sig/Elen Route Start Time Stop Time Status Last Admin Dose Admin Allopurinol (Zyloprim Tab) 300 mg DAILY PO 09/16/17 09:00 10/16/17 08:59 09/19/17 08:49 300 MG Levothyroxine Sodium (Synthroid Tab) 75 mcg DAILYBB PO 09/16/17 06:00 10/16/17 06:59 09/19/17 05:39 75 MCG Azithromycin (Zithromax Tab) 500 mg QAM PO 09/16/17 09:00 09/23/17 08:59 09/19/17 08:48 500 MG Aspirin (Ecotrin Tab) 81 mg QAM PO 09/16/17 09:00 10/16/17 08:59 09/19/17 08:50 81 MG Pantoprazole Sodium (Protonix Tab) 40 mg QAM PO 09/16/17 09:00 10/16/17 08:59 09/19/17 08:50 40 MG Metoprolol Tartrate (Lopressor Tab) 12.5 mg BID PO 09/16/17 21:00 10/16/17 20:59 09/19/17 08:50 12.5 MG Clopidogrel Bisulfate (plAVix TAB) 75 mg QAM PO 09/18/17 09:00 10/18/17 08:59 09/19/17 08:50 75 MG Furosemide (Lasix Tab) 40 mg QAM PO 09/18/17 09:00 10/18/17 08:59 09/19/17 08:48 40 MG Potassium Chloride (Klor-Con M10) 10 meq DAILY PO 09/18/17 09:00 10/15/17 20:59 09/19/17 08:48 10 MEQ Lisinopril (Zestril Tab) 5 mg QAM PO 09/19/17 09:00 10/19/17 08:59 09/19/17 08:49 5 MG Atorvastatin Calcium (Lipitor Tab) 20 mg QAM PO 09/19/17 09:00 10/19/17 08:59 09/19/17 08:49 20 MG Heparin Sodium (Porcine) (Heparin Sq 5000 Unit/0.5ml) 5,000 unit Q12 SQ 09/19/17 09:00 10/19/17 08:59 09/19/17 08:54 5,000 UNIT Ciprofloxacin (Ciprofloxacin Tab) 250 mg BID PO 09/19/17 09:00 09/22/17 08:59 09/19/17 08:50 250 MG Loperamide HCl (Imodium Cap) 2 mg Q6H PRN PO 09/18/17 18:30 10/18/17 18:29 09/19/17 10:25 2 MG
[2017-09-20 04:21] VITALS: BP 120/70; PULSE 63; TEMP 36.4; O2SAT 95
[2017-09-20] MEDS: LEVOTHYROXINE 75 MCG TAB PO SCH (06:41)
[2017-09-20 06:51] LABS: BUN/CREATININE RATIO 30.6 (10-20); CALCIUM 8.2 mg/dl (8.5-10.1); CREATININE 1.2 mg/dl (0.60-1.20); POTASSIUM 4.2 mmol/L (3.5-5.1)
[2017-09-20 07:30] VITALS: BP 106/47; PULSE 61; TEMP 36.7; O2SAT 96
[2017-09-20] MEDS: ATORVASTATIN 20 MG TAB PO SCH (07:58)
[2017-09-20] MEDS: ASPIRIN 81 MG ECTAB PO SCH (07:58)
[2017-09-20] MEDS: LISINOPRIL 5 MG TAB PO SCH (07:58)
[2017-09-20] MEDS: CIPROFLOXACIN 250 MG TAB PO SCH (07:58)
[2017-09-20] MEDS: FUROSEMIDE 40 MG TAB PO SCH (07:58)
[2017-09-20] MEDS: METOPROLOL TARTRATE 25 MG TAB PO SCH (07:58)
[2017-09-20] MEDS: PANTOprazole SOD 40 MG TAB PO SCH (07:58)
[2017-09-20] MEDS: POTASSIUM CHLORIDE 10 MEQ TABCR PO SCH (07:58)
[2017-09-20] MEDS: CLOPIDOGREL BISULFATE 75 MG TAB PO SCH (07:58)
[2017-09-20] MEDS: ALLOPURINOL 300 MG TAB PO SCH (07:59)
[2017-09-20] MEDS: AZITHROMYCIN 250 MG TAB PO SCH (07:59)
[2017-09-20] MEDS: HEPARIN SOD 5000 UNIT/0.5 ML CARP SQ SCH (08:01)
[2017-09-20 11:19] VITALS: BP 92/53; PULSE 60; TEMP 36.3; O2SAT 96
--- NOTE | 2017-09-20 11:58 | PROGRESS NOTE ---
DATE: 09/20/2017 FOLLOWUP VISIT SUBJECTIVE: The patient is an 87-year-old who was admitted with a urinary tract infection and non-STEMI. She has shown steady improvement. Her blood pressure, however, today is on the low side and I suspect it is due to the addition of lisinopril 2 days ago. I would recommend that we discontinue this medication. Otherwise, she is doing well and is anxious to return home. OBJECTIVE: GENERAL: She is alert and oriented in no acute distress. VITAL SIGNS: Blood pressure is 90/60, pulse is regular at 70 beats per minute. She is afebrile. HEENT: She is normocephalic. Pupils are equal and reactive to light. Extraocular muscles are intact bilaterally. NECK: The neck veins are flat. Carotids have good upstrokes bilaterally without bruits. Thyroid is nonpalpable. RESPIRATORY: Breath sounds equal bilaterally and clear to auscultation. CARDIOVASCULAR: Heart has a regular rhythm. Normal S1, S2. No S3, S4. No cardiac rubs or murmurs. GASTROINTESTINAL: Abdomen is soft, nontender without organomegaly. EXTREMITIES: Free of edema, digit clubbing, or cyanosis. NEUROLOGIC: Grossly intact. SKIN: Warm to touch. LYMPH NODES: Negative to palpation. LABORATORY DATA: Hemoglobin is 10.7, potassium is 4.2, creatinine is 1.2. IMPRESSION: 1. Urinary tract infection. 2. Recent septal wall infarct. 3. Mild aortic stenosis. 4. Mitral regurgitation. 5. Diabetes mellitus. 6. Treated hypothyroidism. RECOMMENDATIONS: The patient is anxious to go home and I believe that she should return home on her current medications with the exception of the lisinopril that I stopped today due to low blood pressure. We will plan a followup with this patient as an outpatient.
--- NOTE | 2017-09-20 13:53 | Progress Note ---
Medicine Progress Note Date & Time of Visit: Sep 20, 2017 at 11:43. Subjective Pt was seen and examined Sitting in chair comfortable with no distress Pt said that she feels fine She said that she walks around today with no discomfort she would like to go home today Denies any chest pain, palpitation, dizziness and SOB Objective Last 8 Hrs Date Time Temp Pulse Resp B/P (MAP) Pulse Ox O2 Delivery O2 Flow Rate FiO2 09/20/17 12:30 Room Air 09/20/17 11:19 36.3 60 18 92/53 (66) 96 Room Air 09/20/17 07:45 Room Air 09/20/17 07:30 36.7 61 18 106/47 (66) 96 Room Air Physical Exam: General- No acute distress Head- atraumatic Eyes- PERRL, EOMI ENT- oropharynx clear Neck- supple, no JVD Lungs- clear to auscultation Heart- regular rhythm; +systolic murmur Abdomen- normal bowel sounds, soft, nontender Extremities- +edema, no calf tenderness Neuro- alert, oriented x 3; PERRL, EOMI; no facial palsy; no dysarthria Skin- warm & dry Laboratory Results: Last 24 Hours Test 09/20/17 05:39 Sodium Level 141 mmol/L Potassium Level 4.2 mmol/L Chloride Level 111 mmol/L Carbon Dioxide Level 22 mmol/L Anion Gap 8.0 mmol/L Blood Urea Nitrogen 37 mg/dl Creatinine 1.20 mg/dl Est Creatinine Clear Calc Drug Dose 29.8 ml/min Estimated GFR () 47.7 Estimated GFR (Non- 41.2 BUN/Creatinine Ratio 30.6 Random Glucose 90 mg/dl Calcium Level 8.2 mg/dl Assessment & Plan Acute systolic HF exacerbation CXR showed moderate cardiomegaly with pulmonary vascular congestion and mild interstitial coarsening without overt pulmonary edema. Pro- [place] on admission [id number] She has stopped her Lasix recently because she was going to the bathroom to often Continue Lasix 40mg IV BID Repeat CXR today showed focal interstitial airspace opacities on the right 09/20 Clinically improved significantly Continue Lasix 40mg daily Lisinopril D/C because of Low BP Continue monitor volume status since pt was taking 80mg daily outpatient Stable from cardiology standpoint to discharge home Follow up with cardiology as an outpatient Recent Echo showed * The left ventricle is normal in size. * There is mild concentric left ventricular hypertrophy. * There is moderate septal hypokinesis. * Ejection Fraction = 45-50%. * The right ventricular systolic function is normal. * The left atrium is moderately dilated. * Right atrial size is normal. * Mild to moderate valvular aortic stenosis. * Moderate aortic regurgitation. * There is moderate to severe mitral regurgitation. * There is moderate tricuspid regurgitation. Elevated Troponin Denies any chest pain Initial troponin 18 on admission then increase to 22 Repeat EKG yesterday shown evidence of a recent septal wall infarct. Cardiology on board case discussed with Cardiology dr. Umanzor recommended medical management for now Continue Plavix, asa and Metoprol and heparin drip 09/20 d/Rafa heparin drip Continue atorvastatin D/C Lisinopril due to low BP If develop any angina, consider cardiac cath as per cardio stable Weakness PT/OT fall precaution OK to discharge home with home health as per PT Elevated D-dimer CTA chest showed no evidence for PE Venous doppler showed no evidence of DVT Possible Pneumonia CT chest showed multifocal ground glass and consolidative opacities throughout the right lower lobe suggest bronchopneumonia or aspiration pneumonitis. CXR showed Bibasilar opacities suggest atelectasis Repeat CXR today showed focal interstitial airspace opacities on the right Elevated WBC 25K, trending down to normal Elevated procalcitonin Continue IV Ceftriaxone and IV Azithromycin D/C IV rocephin Azithromycin changed to PO Clinically improved UTI Denies any urinary symptoms ( except urinary frequency, not sure if it was related to lasix) Received Ertapenem in the ER Elevated WBC and procalcitonin WBC back to normal Urine cx grew gram negative bacilli follow up sensitivity Continue IV Ceftriaxone 09/20 D/C IV ceftriaxone Continue PO cipro to complete 7 days course of abx Stable CKD stage 3 Creatine stable Continue monitor BMP Hypothyroidism TSH WNL Continue home dose Levothyroxine Gout Continue home dose allopurinol GI: no GI complaints, hold home dose mesalamine for now DVT px on Heparin subQ Code Status: DNR/DNI 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 Discharge home today with home health services Consultants: cardio Current Inpatient Medications: Current Inpatient Medications Medications (Trade) Dose Ordered Sig/Elen Route Start Time Stop Time Status Last Admin Dose Admin Allopurinol (Zyloprim Tab) 300 mg DAILY PO 09/16/17 09:00 10/16/17 08:59 09/20/17 07:59 300 MG Levothyroxine Sodium (Synthroid Tab) 75 mcg DAILYBB PO 09/16/17 06:00 10/16/17 06:59 09/20/17 06:41 75 MCG Azithromycin (Zithromax Tab) 500 mg QAM PO 09/16/17 09:00 09/23/17 08:59 09/20/17 07:59 500 MG Aspirin (Ecotrin Tab) 81 mg QAM PO 09/16/17 09:00 10/16/17 08:59 09/20/17 07:58 81 MG Pantoprazole Sodium (Protonix Tab) 40 mg QAM PO 09/16/17 09:00 10/16/17 08:59 09/20/17 07:58 40 MG Metoprolol Tartrate (Lopressor Tab) 12.5 mg BID PO 09/16/17 21:00 10/16/17 20:59 09/20/17 07:58 12.5 MG Clopidogrel Bisulfate (plAVix TAB) 75 mg QAM PO 09/18/17 09:00 10/18/17 08:59 09/20/17 07:58 75 MG Furosemide (Lasix Tab) 40 mg QAM PO 09/18/17 09:00 10/18/17 08:59 09/20/17 07:58 40 MG Potassium Chloride (Klor-Con M10) 10 meq DAILY PO 09/18/17 09:00 10/15/17 20:59 09/20/17 07:58 10 MEQ Atorvastatin Calcium (Lipitor Tab) 20 mg QAM PO 09/19/17 09:00 10/19/17 08:59 09/20/17 07:58 20 MG Heparin Sodium (Porcine) (Heparin Sq 5000 Unit/0.5ml) 5,000 unit Q12 SQ 09/19/17 09:00 10/19/17 08:59 09/20/17 08:01 5,000 UNIT Ciprofloxacin (Ciprofloxacin Tab) 250 mg BID PO 09/19/17 09:00 09/22/17 08:59 09/20/17 07:58 250 MG Loperamide HCl (Imodium Cap) 2 mg Q6H PRN PO 09/18/17 18:30 10/18/17 18:29 09/19/17 20:56 2 MG
[2017-09-20] MEDS ORDERED: LPR25 PO (14:06)
[2017-09-20] MEDS ORDERED: LPT20 PO (14:06)
[2017-09-20] MEDS ORDERED: ASPEC81 PO (14:06)
[2017-09-20] MEDS ORDERED: CIPR250T3 PO (14:06)
[2017-09-20] MEDS ORDERED: PLV75 PO (14:06)
--- NOTE | 2017-09-20 14:20 | Discharge Instructions ---
Discharge Instructions Date of Service Sep 20, 2017. Admission Reason for Admission: Elevated Troponin, Lower Extremity Edema, Pna Discharge Discharge Diagnosis / Problem: Acute systolic heart failure, Myocardia infection, Urinary tract infection Discharge Goals Goal(s): Decrease discomfort, Improve function, Improve disease control Activity Recommendations Activity Limitations: resume your previous activity (as tolerated) . Instructions / Follow-Up Instructions / Follow-Up Discharge home today with home health services Follow up appointment with your primary care provider Dr. Doshi on 09/27 @ 10: 45 am Follow up with Cardiology Dr. Umanzor on 10/11 @ 12:45 PM Continue Physical therapy Fall precaution Complete the course of antibiotic Cipro Follow up a low salt diet Continue monitor for fluid overload Current Hospital Diet Patient's current hospital diet: AHA Diet (Heart Healthy) Discharge Diet Recommended Diet: Regular Diet, AHA Diet (Heart Healthy) Pending Studies Studies pending at discharge: no Laboratory Results Hemoglobin A1c Test 09/16/17 04:37 Range/Units Estimated Average Glucose 123 mg/dl Hemoglobin A1c 5.9 H 4.5-5.6 % Lipid Panel Test 09/16/17 04:37 Range/Units Triglycerides Level 71 0-150 mg/dl Cholesterol Level 103 0-200 mg/dl HDL Cholesterol 54 mg/dl Cholesterol/HDL Ratio 1.9 LDL Cholesterol, Calculated 35 mg/dl Medical Emergencies . Who to Call and When: Medical Emergencies: If at any time you feel your situation is an emergency, please call 911 immediately. . Non-Emergent Contact Non-Emergency issues call your: Primary Care Provider Call Non-Emergent contact if: you have any medication questions . . "Provider Documentation" section prepared by Kaci Green. . VTE Core Measure Inpt VTE Proph given/why not?: Unfractionated heparin SQ
[2017-09-20 14:27] VITALS: BP 92/53; PULSE 60; TEMP 36.3; O2SAT 96
--- NOTE | 2017-09-29 09:09 | Discharge Summary ---
Discharge Summary Date of Service Sep 29, 2017. Discharge Summary Admission Date: Sep 15, 2017 at 18:03 Discharge Date: Sep 20, 2017 Discharge Disposition: Home with services Principal Diagnosis: Acute systolic heart failure Secondary Diagnoses/Problems: Myocardia infection Urinary tract infection Weakness Elevated D-Dimer CKD 3 Procedures: CT OF THE HEAD WITHOUT CONTRAST CLINICAL HISTORY: Weakness. COMPARISON STUDY: Head CT February 18, 2014. CT DOSE: 614.27 mGy.cm TECHNIQUE: Helical axial images of the head were obtained without IV contrast. Automated exposure control was utilized for the study. A dose lowering technique was utilized adhering to the principles of ALARA. FINDINGS: No acute intracranial hemorrhage, midline shift or mass effect is present. Ventricular system is unremarkable for age. The basilar cisterns are patent. There are no extra-axial collections. Increased attenuation of the dural sinuses is likely related to recent IV contrast-enhanced chest CT. A 7 mm hypodensity within left thalamus is new since head CT of February 18, 2014. A 5 mm hypodensity within the left caudate head is also new. There are no CT findings to suggest acute dural sinus thrombosis or acute territorial infarct. There are no significant calvarial abnormalities. Visualized portions of the sinuses and mastoid air cells are clear. IMPRESSION: 1. No acute intracranial hemorrhage or mass effect. 2. 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 Electronically signed by: Azar Mata M.D. 09/15/2017 11:04 PM Dictated Date/Time: 09/15/2017 10:59 PM (CHEST FOR PE) ANGIO WITH CT DOSE: 318.70 mGycm HISTORY: 87 years-old Female presents with acute lower extremity edema with elevated troponin TECHNIQUE: Multiple CTA images of the chest were obtained after the intravenous administration of 94 ml Optiray 320. Coronal and sagittal MIPS were obtained from the axial data set and were submitted for review. A dose lowering technique was utilized adhering to the principles of ALARA. COMPARISON: Chest radiograph of same day. FINDINGS: Exam is moderately limited secondary to respiratory motion. CTA: The heart demonstrates at least moderate multichamber enlargement without pericardial effusion. Coronary arterial calcifications are noted. The thoracic aorta demonstrates no aneurysm or dissection. There is moderate mixed plaquing of the aorta with descending thoracic aortic tortuosity. The main pulmonary artery is mildly dilated which may reflect underlying pulmonary arterial hypertension. The distal segmental and subsegmental branches are not well evaluated secondary to respiratory motion. No pulmonary embolus identified. CT CHEST: No dominant thyroid nodule identified. No definite pathologic-appearing adenopathy. There are multifocal consolidative alveolar and groundglass opacities throughout the right lower lobe. Groundglass opacities of the left lower lobe suggest atelectasis or scarring. Central airways are patent. Moderate sized hiatal hernia. Cholelithiasis is partially imaged. Soft tissues are unremarkable. The bones appear mildly demineralized. Degenerative changes are seen and of the spine and shoulders. 20% anterior compression deformity of T12 is age indeterminate, however appears chronic. No retropulsion. IMPRESSION: 1. Moderately limited study secondary to respiratory motion. 2. Cardiomegaly without acute aortic pathology or evidence of pulmonary thromboembolic disease. 3. Multifocal groundglass and consolidative opacities throughout the right lower lobe suggest bronchopneumonia or aspiration pneumonitis. 4. Moderate hiatal hernia. 5. Cholelithiasis. 6. 20% anterior endplate compression deformity of T12 is age indeterminate, however appears chronic without retropulsion. The above report was generated using voice recognition software. It may contain grammatical, syntax or spelling errors. Electronically signed by: Joaquín Schroeder M.D. 09/15/2017 4:07 PM Dictated Date/Time: 09/15/2017 3:57 PM Consultations: cardio Medication Reconciliation New Medications: Aspirin (Aspirin EC Low Dose) 81 Mg Ectab 81 MG PO QAM for 30 Days Atorvastatin (Atorvastatin Calcium) 20 Mg Tab 20 MG PO QAM for 30 Days, #30 TAB Ciprofloxacin (Cipro) 250 Mg Tab 250 MG PO BID for 2 Days, #4 TAB Clopidogrel Bisulfate (Clopidogrel) 75 Mg Tab 75 MG PO QAM for 30 Days, #30 TAB Metoprolol Tartrate (Lopressor) 25 Mg Tab 12.5 MG PO BID for 30 Days, #30 TAB Continued Medications: Allopurinol (Zyloprim) 300 Mg Tab 300 MG PO DAILY, TAB Furosemide (Lasix) 40 Mg Tab 40 MG PO TID, TAB Levothyroxine Sodium (Levothyroxine Sodium) 75 Mcg Tab 1 TAB PO DAILY, TAB Mesalamine (Apriso) 0.375 Gm Cap 1.5 GM PO QAM Potassium Chloride (Micro-K Ext Rel) 10 Meq Capcr 10 MEQ PO BID Admission Information HPI (per Admitting provider): 87 year old F who was in her usual state of health yesterday when walking and shopping in [facility], went to sleep in a chair at home instead of her bed and when awaking, patient was too weak to get up off the chair by herself, patient called for assistance and a neighbor helped her get cleaned up, and helped her get assistance to go to the hospital, when arrived in the ED her labs were significant for troponin of 18 without acute EKG findings as per ED interpretation. D-dimer positive, but CTA did not find evidence of pulmonary embolism and lower extremity ultrasound did not find evidence for deep vein thrombosis. CTA imaging pertinent for Multifocal ground glass and consolidative opacities throughout the right lower lobe suggest bronchopneumonia or aspiration pneumonitis. Patient denied shortness of breath or chest pain or abdominal pain. Because patient reports aspirin allergy, the 325 mg of aspirin that was ordered by the ER physician was stopped. Case discussed with Cardiology Dr. Umanzor who advised alternative antiplatelet - clopidogrel 75 mg x 1 for now, and to hold off on heparin drip. Patient also denied history of dysuria but had positive UA. For empiric treatment of pneumonia or UTI, ER physician ordered IV ceftriaxone, IV azithromycin, and IV Ertapenem. Patient also has been off of her Lasix for several days and has elevated BNP suggestive that infiltrates in lung may be due to CHF and also reports increased lower extremity swelling. Patient was seen and assessed by hospitalist medical physician and as per discussion with the patient with her son (contact number [phone]), patient declines resuscitation or intubation in an emergency situation - Code status DNR/DNI Physical Exam (per Admitting): General Appearance: no apparent distress Head: normocephalic, atraumatic Eyes: normal inspection, EOMI, sclerae normal ENT: normal ENT inspection, hearing grossly normal, TMs normal, pharynx normal Neck: no JVD, trachea midline Respiratory/Chest: chest non-tender, no respiratory distress, no accessory muscle use, + crackles Cardiovascular: regular rate, rhythm, no JVD, + systolic murmur Abdomen/GI: normal bowel sounds, non tender, soft Back: normal inspection, no muscle spasm, normal range of motion Extremities/Musculoskelatal: normal range of motion, + pedal edema, + swelling (lower extremities bilterally) Neurologic/Psych: no motor/sensory deficits, alert, oriented x 3 Skin: normal color, warm/dry, no rash Hospital Course Acute systolic HF exacerbation CXR showed moderate cardiomegaly with pulmonary vascular congestion and mild interstitial coarsening without overt pulmonary edema. Pro- BNP on admission [id number] She has stopped her Lasix recently because she was going to the bathroom to often Continue Lasix 40mg IV BID Repeat CXR today showed focal interstitial airspace opacities on the right 09/20 Clinically improved significantly Continue Lasix 40mg daily Lisinopril D/C because of Low BP Continue monitor volume status since pt was taking 80mg daily outpatient Stable from cardiology standpoint to discharge home Follow up with cardiology as an outpatient Recent Echo showed * The left ventricle is normal in size. * There is mild concentric left ventricular hypertrophy. * There is moderate septal hypokinesis. * Ejection Fraction = 45-50%. * The right ventricular systolic function is normal. * The left atrium is moderately dilated. * Right atrial size is normal. * Mild to moderate valvular aortic stenosis. * Moderate aortic regurgitation. * There is moderate to severe mitral regurgitation. * There is moderate tricuspid regurgitation. Elevated Troponin Denies any chest pain Initial troponin 18 on admission then increase to 22 Repeat EKG yesterday shown evidence of a recent septal wall infarct. Cardiology on board case discussed with Cardiology dr. Umanzor recommended medical management for now Continue Plavix, asa and Metoprol and heparin drip 09/20 d/Rafa heparin drip Continue atorvastatin D/C Lisinopril due to low BP If develop any angina, consider cardiac cath as per cardio stable Weakness PT/OT fall precaution OK to discharge home with home health as per PT Elevated D-dimer CTA chest showed no evidence for PE Venous doppler showed no evidence of DVT Possible Pneumonia CT chest showed multifocal ground glass and consolidative opacities throughout the right lower lobe suggest bronchopneumonia or aspiration pneumonitis. CXR showed Bibasilar opacities suggest atelectasis Repeat CXR today showed focal interstitial airspace opacities on the right Elevated WBC 25K, trending down to normal Elevated procalcitonin Continue IV Ceftriaxone and IV Azithromycin D/C IV rocephin Azithromycin changed to PO Clinically improved UTI Denies any urinary symptoms ( except urinary frequency, not sure if it was related to lasix) Received Ertapenem in the ER Elevated WBC and procalcitonin WBC back to normal Urine cx grew gram negative bacilli follow up sensitivity Continue IV Ceftriaxone 09/20 D/C IV ceftriaxone Continue PO cipro to complete 7 days course of abx Stable CKD stage 3 Creatine stable Continue monitor BMP Hypothyroidism TSH WNL Continue home dose Levothyroxine Gout Continue home dose allopurinol GI: no GI complaints, hold home dose mesalamine for now DVT px on Heparin subQ Code Status: DNR/DNI 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 Discharge Instructions Discharge Instructions Date of Service Sep 20, 2017. Admission Reason for Admission: Elevated Troponin, Lower Extremity Edema, Pna Discharge Discharge Diagnosis / Problem: Acute systolic heart failure, Myocardia infection, Urinary tract infection Discharge Goals Goal(s): Decrease discomfort, Improve function, Improve disease control Activity Recommendations Activity Limitations: resume your previous activity (as tolerated) . Instructions / Follow-Up Instructions / Follow-Up Discharge home today with home health services Follow up appointment with your primary care provider Dr. Doshi on 09/27 @ 10: 45 am Follow up with Cardiology Dr. Umanzor on 10/11 @ 12:45 PM Continue Physical therapy Fall precaution Complete the course of antibiotic Cipro Follow up a low salt diet Continue monitor for fluid overload Current Hospital Diet Patient's current hospital diet: AHA Diet (Heart Healthy) Discharge Diet Recommended Diet: Regular Diet, AHA Diet (Heart Healthy) Pending Studies Studies pending at discharge: no Laboratory Results Hemoglobin A1c Test 09/16/17 04:37 Range/Units Estimated Average Glucose 123 mg/dl Hemoglobin A1c 5.9 H 4.5-5.6 % Lipid Panel Test 09/16/17 04:37 Range/Units Triglycerides Level 71 0-150 mg/dl Cholesterol Level 103 0-200 mg/dl HDL Cholesterol 54 mg/dl Cholesterol/HDL Ratio 1.9 LDL Cholesterol, Calculated 35 mg/dl Medical Emergencies . Who to Call and When: Medical Emergencies: If at any time you feel your situation is an emergency, please call 911 immediately. . Non-Emergent Contact Non-Emergency issues call your: Primary Care Provider Call Non-Emergent contact if: you have any medication questions . . "Provider Documentation" section prepared by Kaci Green. . VTE Core Measure Inpt VTE Proph given/why not?: Unfractionated heparin SQ <Electronically signed by Kaci Green M.D.> Signed: 09/21/171918 Signed: The status of this report is Signed * If report status is Draft, the document has not been finalized by the responsible provider. Additional Copies To Russ Doshi M.D.
== END 2017-09-20 15:45 | disposition home health service (06) | DRG 280 ==
LOC: EDBD 13:12 → C.EDB 13:14 → C.2T 18:03 → ENRESERV 18:34 → C.MED 09-18 19:16
PROVIDERS: ADMIT Hospitalist; ATTEND Internal Medicine
DX: I21.4 Non-ST elevation (NSTEMI) myocardial infarction (principal); I50.21 Acute systolic (congestive) heart failure; J18.9 Pneumonia, unspecified organism; N39.0 Urinary tract infection, site not specified; R79.1 Abnormal coagulation profile; T50.1X6A Underdosing of loop [high-ceiling] diuretics, initial encounter; Z91.128 Patient's intentional underdosing of medication regimen for other reason; R53.1 Weakness; I08.0 Rheumatic disorders of both mitral and aortic valves; E11.22 Type 2 diabetes mellitus with diabetic chronic kidney disease; N18.3 Chronic kidney disease, stage 3 (moderate); E03.9 Hypothyroidism, unspecified; M10.9 Gout, unspecified; Z66 Do not resuscitate; Z79.1 Long term (current) use of non-steroidal anti-inflammatories (NSAID); Z79.899 Other long term (current) drug therapy

== ENCOUNTER 2019-01-10 10:45 | Inpatient (IN) ==
[2019-01-10] MEDS ORDERED: SODIUM CHLORIDE 0.9% 1000ML 1,000 ML IV ONE ×2 (11:40→15:42)
[2019-01-10] MEDS ORDERED: VANCOMYCIN HCL 1,000 MG in SODIUM CHLORIDE 0.9% 500 ML IV ONE (11:40)
[2019-01-10] MEDS ORDERED: PIPERACILLIN/TAZOBACTAM 4.5 GM/120 ML BAG IV ONE (11:40)
[2019-01-10] MEDS ORDERED: VANCOMYCIN CONSULT ACTIVE PRN (11:40)
[2019-01-10] MEDS ORDERED: PIPERACILL/TAZOBAC CONSULT ACTIVE PRN (11:40)
[2019-01-10] MEDS ORDERED: VANCOMYCIN HCL 1 GM/270 ML BAG ONE (11:44)
[2019-01-10 12:00] LABS: Appearance Urine Clear (Clear); Bacteria Urine Automated 2+ (Negative); Bilirubin Urine Negative (Negative); Blood Urine 2+ (Negative); Color Urine Yellow; Epithelial Cell Urine Auto 20-30 /lpf (0-5); Glucose Urine UA Negative (Negative); Ketones Urine Trace (Negative); Leukocyte Esterase Urine Trace (Negative); Nitrite Urine Positive (Negative); Protein Urine Negative (Negative); RBC Urine Automated 0-4 /hpf (0-4); Urobilinogen Urine Negative (Negative)
--- NOTE | 2019-01-10 12:13 | XRay Report ---
XR chest 1V portable CLINICAL HISTORY: Sepsis COMPARISON STUDY: Chest radiograph September 17, 2017. FINDINGS: There is no pneumothorax. Linear right lung density favors scarring or atelectasis. Left ba silar opacity is present which may be related to a hiatal hernia. There is no evidence for overt angely a. Cardiomegaly is unchanged. IMPRESSION: 1. Left basilar opacity which may be related to a hiatal hernia or reflect consolidation. 2. Small left pleural effusion. Electronically signed by: Azar Mata M.D. 01/10/2019 12:12 PM
[2019-01-10] MEDS ORDERED: DOXYCYCLINE HYCLATE 100 MG in DEXTROSE 5% 100 ML IV STA (12:29)
[2019-01-10] MEDS ORDERED: cefTRIAXone SODIUM 1,000 MG/50 ML BAG IV STA (12:29)
[2019-01-10 12:39] LABS: Basophils # (auto) 0.01 K/uL (0-0.2); Basophils % (auto) 0.1 %; Eosinophils # (auto) 0.01 K/uL (0-0.5); Eosinophils % (auto) 0.1 %; Hemoglobin 11.6 g/dL (12.0-16.0); Immature Granulocytes # (auto) 0.04 K/uL (0.00-0.02); Immature Granulocytes % (auto) 0.3 %; Lymphocytes # (auto) 0.71 K/uL (1.2-3.4); Lymphocytes % (auto) 5.4 %; Mean Corpuscular Hgb Conc 31.4 g/dL (32-36); Mean Corpuscular Volume 92.5 fL (80-100); Mean Platelet Volume 11.4 fL (7.4-10.4); Monocytes % (auto) 11.3 %; Neutrophils # (auto) 10.96 K/uL (1.4-6.5); Neutrophils % (auto) 82.8 %; Platelet Count 243 K/uL (130-400); RDW Coefficient of Variation 16.3 % (11.5-14.5); White Blood Count 13.23 K/uL (4.8-10.8)
[2019-01-10 12:51] LABS: INR 1.3 (0.9-1.1); Partial Thromboplastin Time 27.9 Seconds (21.0-31.0); Prothrombin Time 13.2 Seconds (9.0-12.0)
[2019-01-10 12:55] LABS: Albumin Level 2.8 gm/dl (3.4-5.0); BUN Creatinine Ratio 51.9 (10-20); Calcium 8.3 mg/dl (8.5-10.1); Creatinine Clr Calc Pharmacy 29.4 ml/min; Est GFR (African American) 58.4; Est GFR (Non-African American) 50.4; Potassium 4.9 mmol/L (3.5-5.1)
[2019-01-10 13:12] LABS: Albumin Globulin Ratio 0.9 (0.9-2); Bilirubin,Total 0.7 mg/dl (0.2-1); Globulin 3.1 gm/dl (2.5-4.0); Total Protein 5.9 gm/dl (6.4-8.2); Troponin I 20.4 ng/ml (0-0.045)
[2019-01-10] MEDS ORDERED: ASPIRIN CHEW 324 MG PO STA (14:04)
[2019-01-10] MEDS ORDERED: ASPIRIN 300 MG SUPP PR ONE (15:42)
--- NOTE | 2019-01-10 17:03 | Emergency Department Note ---
Entered by Thong Fields acting as a scribe for Aquiles Ramirez MD History of Present Illness General Chief complaint: Fall Time Seen by Provider: 01/10/19 11:19 Source: patient Mode of arrival: ambulatory History of Present Illness Provider complaint: Fall Onset (ago): hour(s) 1 Location: upper extremity Severity: severe Maximum Pain Intensity: 4 Current Pain Intensity: 4 Associated symptoms: no fever/chills and no headaches The patient is a 88 year old white female with past medical history of hyperlipidemia, ulcerative colitis, hyperthyroidism, IBS, and N-STEMI who presents to the ED with CC of a fall beginning an hour ago. She states living by herself and that she does not recall too many details of the fall. She states at this moment she is accompanied with symptoms of back pain, leg pain and knee pain. She notes her pain as severe, and at a value of 4 on the pain intensity scale. She denied use of oxygen, fevers, chills, cough and headaches. Home Medications Home Medications Medication Instructions Recorded Confirmed Type allopurinol 300 mg PO QAM 01/10/19 01/10/19 History aspirin 81 mg PO QAM 01/10/19 01/10/19 History atorvastatin 20 mg PO HS 01/10/19 01/10/19 History clopidogrel 75 mg PO QAM 01/10/19 01/10/19 History levothyroxine 75 mcg PO QAM 01/10/19 01/10/19 History mesalamine [Apriso] 0.375 g PO BID 01/10/19 01/10/19 History metoprolol succinate 25 mg PO QAM 01/10/19 01/10/19 History potassium chloride 10 meq PO QAM 01/10/19 01/10/19 History Allergies Allergy/AdvReac Type Severity Reaction Status Date / Time aspirin Allergy Unknown uknown Verified 01/10/19 12:05 mesalamine Allergy Unknown . Verified 01/10/19 12:05 metformin Allergy Unknown . Verified 01/10/19 12:05 NSAIDS (Non-Steroidal Allergy Unknown . Verified 01/10/19 12:05 Anti-Inflamma Bisphosphonates Allergy Unknown . Uncoded 01/10/19 12:05 Past Med/Surg History Medical History History of hysterectomy (Chronic) Hip fracture, right (Chronic) s/p repair CAD (coronary artery disease) (Chronic) hx of septal wall infarction CKD (chronic kidney disease), stage III (Chronic) Ulcerative colitis (Chronic) Lymphedema (Chronic) Aortic valve stenosis (Chronic) Heart failure due to valvular disease (Chronic) Chronic systolic CHF (congestive heart failure) (Chronic) Gout (Chronic) Hypothyroidism (Chronic) Diabetes mellitus type 2, diet-controlled (Chronic) Surgical History History of cataract surgery (Chronic) History of appendectomy (Chronic) History of total left hip replacement (Chronic) Family History Other Family history non-contributory Social History Preferred Language: Tongan Communication Ability: Effective [employer]ppings Required: No Beliefs That Will Affect Care: None Current Living Situation: Alone Other Information That Helps Us Care for You: No Feels Safe at Home: Yes Smoking Status: Never smoker Hx Alcohol Use: No Hx Substance Use: No Review of Systems See HPI for pertinent positives & negatives. and A total of 10 systems reviewed and were otherwise negative Physical Exam Vital Signs Vital Signs - 24 hr 01/10/19 13:30 01/10/19 13:32 01/10/19 13:33 Temperature Temperature Source Pulse Rate - Lying Pulse Rate 81 80 84 Pulse Rate [Apical] Pulse Rate from SpO2 Sensor 81 80 83 Pulse Rhythm [Apical] Pulse Strength [Apical] Respiratory Rate 18 20 20 Respiratory Effort / Characteristics Respiratory Depth Respiratory Pattern Blood Pressure - Lying Blood Pressure - Sitting Blood Pressure 135/93 Blood Pressure [Left Arm] Blood Pressure Mean 107 Blood Pressure Mean [Left Arm] Blood Pressure Position [Left Arm] Pulse Oximetry 98 99 98 Pulse Oximetry [Post Treatment/Recovery] Pulse Oximetry [Start of Treatment] Oxygen Delivery Method Nasal Cannula Oxygen Flow Rate 2 Oxygen Flow Rate [Post Treatment/Recovery] Oxygen Flow Rate [Start of Treatment] 01/10/19 14:00 01/10/19 14:16 01/10/19 14:18 Temperature Temperature Source Pulse Rate - Lying Pulse Rate 85 82 Pulse Rate [Apical] Pulse Rate from SpO2 Sensor 85 83 Pulse Rhythm [Apical] Pulse Strength [Apical] Respiratory Rate 19 22 Respiratory Effort / Characteristics Respiratory Depth Respiratory Pattern Blood Pressure - Lying Blood Pressure - Sitting Blood Pressure 143/71 H Blood Pressure [Left Arm] Blood Pressure Mean 95 Blood Pressure Mean [Left Arm] Blood Pressure Position [Left Arm] Pulse Oximetry 98 98 Pulse Oximetry [Post Treatment/Recovery] Pulse Oximetry [Start of Treatment] Oxygen Delivery Method Nasal Cannula Oxygen Flow Rate 2 Oxygen Flow Rate [Post Treatment/Recovery] Oxygen Flow Rate [Start of Treatment] 01/10/19 14:30 01/10/19 14:31 01/10/19 16:17 Temperature Temperature Source Pulse Rate - Lying Pulse Rate 83 83 79 Pulse Rate [Apical] Pulse Rate from SpO2 Sensor 84 81 Pulse Rhythm [Apical] Pulse Strength [Apical] Respiratory Rate 24 20 20 Respiratory Effort / Characteristics Respiratory Depth Respiratory Pattern Blood Pressure - Lying Blood Pressure - Sitting Blood Pressure 136/65 136/65 Blood Pressure [Left Arm] Blood Pressure Mean 88 Blood Pressure Mean [Left Arm] Blood Pressure Position [Left Arm] Pulse Oximetry 99 100 97 Pulse Oximetry [Post Treatment/Recovery] Pulse Oximetry [Start of Treatment] Oxygen Delivery Method Nasal Cannula Nasal Cannula Oxygen Flow Rate 2 2 Oxygen Flow Rate [Post Treatment/Recovery] Oxygen Flow Rate [Start of Treatment] 01/10/19 17:00 01/10/19 18:05 01/10/19 19:32 Temperature 36.4 C L 36.4 C L Temperature Source Oral Axillary Pulse Rate - Lying Pulse Rate 77 Pulse Rate [Apical] 82 80 Pulse Rate from SpO2 Sensor Pulse Rhythm [Apical] Regular Pulse Strength [Apical] Normal Respiratory Rate 20 20 Respiratory Effort / Characteristics Non-Labored Spontaneous Respiratory Depth Normal Respiratory Pattern Regular Blood Pressure - Lying Blood Pressure - Sitting Blood Pressure Blood Pressure [Left Arm] 155/69 H 144/68 H Blood Pressure Mean Blood Pressure Mean [Left Arm] 97 93 Blood Pressure Position [Left Arm] Lying Semi-fowlers Pulse Oximetry 98 97 Pulse Oximetry [Post Treatment/Recovery] Pulse Oximetry [Start of Treatment] Oxygen Delivery Method Nasal Cannula Nasal Cannula Oxygen Flow Rate 3 3 Oxygen Flow Rate [Post Treatment/Recovery] Oxygen Flow Rate [Start of Treatment] 01/10/19 20:00 01/11/19 00:48 01/11/19 03:48 Temperature 36.9 C 36.8 C Temperature Source Axillary Oral Pulse Rate - Lying Pulse Rate Pulse Rate [Apical] 83 83 Pulse Rate from SpO2 Sensor Pulse Rhythm [Apical] Pulse Strength [Apical] Respiratory Rate 24 23 Respiratory Effort / Characteristics Non-Labored Spontaneous Respiratory Depth Normal Respiratory Pattern Regular Blood Pressure - Lying Blood Pressure - Sitting Blood Pressure Blood Pressure [Left Arm] 148/74 H 124/68 Blood Pressure Mean Blood Pressure Mean [Left Arm] 98 86 Blood Pressure Position [Left Arm] Lying Lying Pulse Oximetry 95 98 Pulse Oximetry [Post Treatment/Recovery] Pulse Oximetry [Start of Treatment] Oxygen Delivery Method Nasal Cannula Room Air Nasal Cannula Oxygen Flow Rate 3 3 Oxygen Flow Rate [Post Treatment/Recovery] Oxygen Flow Rate [Start of Treatment] 01/11/19 06:43 01/11/19 07:41 01/11/19 08:00 Temperature 36.3 C L Temperature Source Oral Pulse Rate - Lying Pulse Rate 88 88 Pulse Rate [Apical] 74 Pulse Rate from SpO2 Sensor Pulse Rhythm [Apical] Pulse Strength [Apical] Respiratory Rate 22 Respiratory Effort / Characteristics Respiratory Depth Respiratory Pattern Blood Pressure - Lying Blood Pressure - Sitting Blood Pressure 145/72 H Blood Pressure [Left Arm] 122/72 Blood Pressure Mean Blood Pressure Mean [Left Arm] 88 Blood Pressure Position [Left Arm] Sitting Pulse Oximetry 97 Pulse Oximetry [Post Treatment/Recovery] Pulse Oximetry [Start of Treatment] Oxygen Delivery Method Nasal Cannula Oxygen Flow Rate 3 Oxygen Flow Rate [Post Treatment/Recovery] Oxygen Flow Rate [Start of Treatment] 01/11/19 11:21 01/11/19 11:28 01/11/19 12:41 Temperature 36.5 C Temperature Source Oral Pulse Rate - Lying 80 Pulse Rate Pulse Rate [Apical] 76 Pulse Rate from SpO2 Sensor Pulse Rhythm [Apical] Pulse Strength [Apical] Respiratory Rate 20 Respiratory Effort / Characteristics Respiratory Depth Normal Respiratory Pattern Blood Pressure - Lying 157/66 H Blood Pressure - Sitting 161/71 H Blood Pressure Blood Pressure [Left Arm] 157/66 H Blood Pressure Mean Blood Pressure Mean [Left Arm] 96 Blood Pressure Position [Left Arm] Lying Pulse Oximetry 98 Pulse Oximetry [Post Treatment/Recovery] 98 Pulse Oximetry [Start of Treatment] 98 Oxygen Delivery Method Nasal Cannula Oxygen Flow Rate 3 Oxygen Flow Rate [Post Treatment/Recovery] 3 Oxygen Flow Rate [Start of Treatment] 3 GENERAL: Well appearing, well nourished, NAD, non-toxic. EYE EXAM: Normal conjunctiva. PERRL, no anisocoria and EOM's grossly intact w/o pain. OROPHARYNX: Dry Mucous membranes, cracking of lips. NECK: Supple, no nuchal rigidity, no adenopathy, non-tender. No signs of meningismus. HEAD: Skin breakdown to posterior occiput LUNGS: Mild crackles throughout . Normal chest wall mechanics. HEART: NSR, no MRG. ABDOMEN: Abdomen soft, non-tender, normo-active bowel sounds, no masses, no rebound or guarding. BACK: Mid Thoracic Back and sacral skin breakdown SKIN: No rashes and no bruising. Skin breakdown to posterior occiput, LUE, mid thoracic back, and sacrum UPPER EXTREMITIES: LUE noted to have skin breakdown and mild bruising. LOWER EXTREMITIES: No pitting edema. No calf pain. NEURO EXAM: A and O x3. GCS 15. Moves all 4 extremities on command w/o issue. Course 1132: Past medical records reviewed. The patient was evaluated in room A09A, and a complete history and physical examination were performed. 1330: I discussed the case with Juan Luis Cardona who will admit the patient to [facility] who will take the patient under his care. Patient has verbalized agreement to the treatment plan. Administered Medications Allopurinol (Zyloprim) 300 mg PO QAM [facility] Stop: 02/10/19 08:59 Last Admin: 01/11/19 08:34 Dose: Not Given Documented by: [id number] Aspirin (Ecotrin Ectab) 81 mg PO QAM [facility] Stop: 02/10/19 08:59 Last Admin: 01/11/19 08:34 Dose: Not Given Documented by: [id number] Atorvastatin Calcium (Lipitor) 20 mg PO HS [facility] Stop: 02/09/19 20:59 Last Admin: 01/10/19 23:10 Dose: Not Given Documented by: [id number] Clopidogrel Bisulfate (Plavix) 75 mg PO QAM [facility] Stop: 02/10/19 08:59 Last Admin: 01/11/19 08:34 Dose: Not Given Documented by: [id number] Heparin Sodium (Porcine) (Heparin Sodium (Porcine)) 5,000 units SQ Q12 [facility] Stop: 02/09/19 20:59 Last Admin: 01/11/19 09:24 Dose: 5,000 units Documented by: [id number] Cosigned by: [id number] Admin: 01/10/19 21:56 Dose: 5,000 units Documented by: [id number] Cosigned by: [id number] Sodium Chloride (Nss 1000ml) 1,000 mls @ 100 mls/hr IV .Q10H [facility] Stop: 02/09/19 17:14 Last Admin: 01/11/19 04:19 Dose: 100 mls/hr Documented by: [id number] Infusion: 01/11/19 04:19 Dose: 100 mls/hr Documented by: [id number] Admin: 01/10/19 18:58 Dose: 100 mls/hr Documented by: [id number] Ceftriaxone Sodium 1,000 mg/ (Dextrose) 50 mls @ 100 mls/hr IV Q24H [facility]; Protocol Stop: 01/15/19 08:59 Last Infusion: 01/11/19 11:11 Dose: 0 mls/hr Documented by: [id number] Admin: 01/11/19 09:23 Dose: 100 mls/hr Documented by: [id number] Metoprolol Succinate (Toprol Xl) 25 mg PO QAM [facility] Stop: 02/09/19 17:14 Last Admin: 01/10/19 19:22 Dose: Not Given Documented by: [id number] Metoprolol Tartrate (Lopressor) 2.5 mg IV Q6H [facility] Stop: 02/10/19 06:29 Last Admin: 01/11/19 06:43 Dose: 5 mg Documented by: [id number] Miscellaneous (Order Awaiting Action) 1 ea N/A QS [facility] Stop: 02/09/19 17:44 Last Admin: 01/11/19 08:34 Dose: Not Given Documented by: [id number] Admin: 01/11/19 04:20 Dose: Not Given Documented by: [id number] Admin: 01/10/19 19:23 Dose: Not Given Documented by: [id number] Discontinued Medications Aspirin (Aspirin) 324 mg PO NOW STA Stop: 01/10/19 14:05 Last Admin: 01/10/19 14:14 Dose: Not Given Documented by: [id number] Aspirin (Aspirin) 300 mg [place] ONE ONE Stop: 01/10/19 15:43 Last Admin: 01/10/19 18:39 Dose: 300 mg Documented by: [id number] Vancomycin HCl 1,000 mg/ (Sodium Chloride) 520 mls @ 200 mls/hr IV NOW ONE Stop: 01/10/19 14:15 Last Admin: 01/10/19 12:34 Dose: Not Given Documented by: [id number] Piperacillin Sod/Tazobactam Sod (Zosyn) 4.5 gm in 120 mls @ 240 mls/hr IV NOW O NE Stop: 01/10/19 12:09 Last Infusion: 01/10/19 13:43 Dose: 0 mls/hr Documented by: [id number] Admin: 01/10/19 12:34 Dose: 240 mls/hr Documented by: [id number] Sodium Chloride (Nss 1000ml) 1,000 mls @ 999 mls/hr IV .Q1H1M ONE Stop: 01/10/19 12:40 Last Infusion: 01/10/19 13:43 Dose: 0 mls/hr Documented by: [id number] Admin: 01/10/19 12:34 Dose: 999 mls/hr Documented by: [id number] Ceftriaxone Sodium (Rocephin) 1,000 mg in 50 mls @ 100 mls/hr IV NOW STA Stop: 01/10/19 12:58 Last Infusion: 01/10/19 14:09 Dose: 0 mls/hr Documented by: [id number] Admin: 01/10/19 13:43 Dose: 100 mls/hr Documented by: [id number] Doxycycline Hyclate 100 mg/ (Dextrose) 110 mls @ 50 mls/hr IV NOW STA Stop: 01/10/19 14:40 Last Infusion: 01/10/19 15:46 Dose: 0 mls/hr Documented by: [id number] Admin: 01/10/19 13:43 Dose: 50 mls/hr Documented by: [id number] Sodium Chloride (Nss 1000ml) 1,000 mls @ 999 mls/hr IV .Q1H1M ONE Stop: 01/10/19 16:42 Last Infusion: 01/10/19 17:24 Dose: 0 mls/hr Documented by: [id number] Admin: 01/10/19 16:24 Dose: 999 mls/hr Documented by: [id number] Levothyroxine Sodium 37.5 mcg/ (Syringe) 1.875 mls @ 2 mls/min IV 0830 [facility] Stop: 01/11/19 12:00 Last Admin: 01/11/19 09:53 Dose: 2 mls/min Documented by: [id number] Vancomycin HCl (Vancomycin Hcl) Confirm Administered Dose 1,000 mg .ROUTE .STK- MED ONE Stop: 01/10/19 11:45 Last Admin: 01/10/19 12:34 Dose: 1,000 mg Documented by: [id number] Medical Decision Making Differential Diagnosis Differential includes acute coronary syndrome, myocardial infarction, CVA, TIA, anemia, infection, pneumonia, UTI, pyelonephritis, poor nutrition, dehydration, electrolyte disturbance,hypoglycemia. Medical Records Attestation: I reviewed the patient's medical records. Home Medications Current Medication List: was personally reviewed by me Laboratory Data Result diagrams: 01/11/19 05:59 01/11/19 05:59 Lab Results 01/10/19 01/10/19 01/10/19 Range/Units 11:25 11:38 12:08 WBC 13.23 H (4.8-10.8) K/uL RBC 4.00 L (4.2-5.4) M/uL Hgb 11.6 L (12.0-16.0) g/dL Hct 37.0 (37-47) % MCV 92.5 (80-100) fL MCH 29.0 (25-34) pg MCHC 31.4 L (32-36) g/dL RDW Std Deviation 54.0 H (36.4-46.3) fL RDW Coeff of Jeffrey 16.3 H (11.5-14.5) % Plt Count 243 (130-400) K/uL MPV 11.4 H (7.4-10.4) fL Immature Gran % (Auto) 0.3 % Neut % (Auto) 82.8 % Lymph % (Auto) 5.4 % [place] % (Auto) 11.3 % Eos % (Auto) 0.1 % Baso % (Auto) 0.1 % Immature Gran # (Auto) 0.04 H (0.00-0.02) K/uL Neut # (Auto) 10.96 H (1.4-6.5) K/uL Lymph # (Auto) 0.71 L (1.2-3.4) K/uL [place] # (Auto) 1.50 H (0.11-0.59) K/uL Eos # (Auto) 0.01 (0-0.5) K/uL Baso # (Auto) 0.01 (0-0.2) K/uL PT (9.0-12.0) Seconds INR (0.9-1.1) APTT (21.0-31.0) Seconds PTT Ratio Sodium (136-145) mmol/L Potassium (3.5-5.1) mmol/L Chloride (98-107) mmol/L Carbon Dioxide (21-32) mmol/L Anion Gap (3-11) BUN (7-18) mg/dl Creatinine (0.6-1.2) mg/dl Est Cr Clr Drug Dosing ml/min Est GFR ( Amer) Est GFR (Non-Af Amer) BUN/Creatinine Ratio (10-20) Glucose (70-99) mg/dl POC Glucose (70-99) POC Lactic Acid Aaron 1.77 H (0.90-1.70) mmol/L Lactate (0.4-2.0) mmol/L Calcium (8.5-10.1) mg/dl Total Bilirubin (0.2-1) mg/dl Direct Bilirubin (0-0.2) mg/dl AST (15-37) U/L ALT (12-78) U/L Alkaline Phosphatase (45-117) U/L Total Creatine Kinase (26-192) U/L Troponin I (0-0.045) ng/ml Total Protein (6.4-8.2) gm/dl Albumin (3.4-5.0) gm/dl Globulin (2.5-4.0) gm/dl Albumin/Globulin Ratio (0.9-2) TSH (0.300-4.500) uIu/ml Urine Color Yellow Urine Appearance Clear (Clear) Urine pH 5.0 (4.5-7.5) Ur Specific [place] 1.020 (1.000-1.030) Urine Protein Negative (Negative) Urine Glucose (UA) Negative (Negative) Urine Ketones Trace H (Negative) Urine Blood 2+ H (Negative) Urine Nitrite Positive H (Negative) Urine Bilirubin Negative (Negative) Urine Urobilinogen Negative (Negative) Ur Leukocyte Esterase Trace H (Negative) Urine WBC (Auto) 1-5 (0-5) /hpf Urine RBC (Auto) 0-4 (0-4) /hpf U Hyaline Cast (Auto) 10-30 H (0-5) /lpf U Epithel Cells (Auto) 20-30 H (0-5) /lpf Urine Bacteria (Auto) 2+ H (Negative) 01/10/19 01/10/19 01/10/19 Range/Units 12:08 12:08 12:08 WBC (4.8-10.8) K/uL RBC (4.2-5.4) M/uL Hgb (12.0-16.0) g/dL Hct (37-47) % MCV (80-100) fL MCH (25-34) pg MCHC (32-36) g/dL RDW Std Deviation (36.4-46.3) fL RDW Coeff of Jeffrey (11.5-14.5) % Plt Count (130-400) K/uL MPV (7.4-10.4) fL Immature Gran % (Auto) % Neut % (Auto) % Lymph % (Auto) % [place] % (Auto) % Eos % (Auto) % Baso % (Auto) % Immature Gran # (Auto) (0.00-0.02) K/uL Neut # (Auto) (1.4-6.5) K/uL Lymph # (Auto) (1.2-3.4) K/uL [place] # (Auto) (0.11-0.59) K/uL Eos # (Auto) (0-0.5) K/uL Baso # (Auto) (0-0.2) K/uL PT 13.2 H (9.0-12.0) Seconds INR 1.3 H (0.9-1.1) APTT 27.9 (21.0-31.0) Seconds PTT Ratio 1.0 Sodium 143 (136-145) mmol/L Potassium 4.9 (3.5-5.1) mmol/L Chloride 114 H (98-107) mmol/L Carbon Dioxide 18 L (21-32) mmol/L Anion Gap 11.0 (3-11) BUN 52 H (7-18) mg/dl Creatinine 1.01 (0.6-1.2) mg/dl Est Cr Clr Drug Dosing 29.4 ml/min Est GFR ( Amer) 58.4 Est GFR (Non-Af Amer) 50.4 BUN/Creatinine Ratio 51.9 H (10-20) Glucose 103 H (70-99) mg/dl POC Glucose (70-99) POC Lactic Acid Aaron (0.90-1.70) mmol/L Lactate 1.6 (0.4-2.0) mmol/L Calcium 8.3 L (8.5-10.1) mg/dl Total Bilirubin 0.7 (0.2-1) mg/dl Direct Bilirubin (0-0.2) mg/dl AST 208 H (15-37) U/L ALT 59 (12-78) U/L Alkaline Phosphatase 92 (45-117) U/L Total Creatine Kinase 3038 H (26-192) U/L Troponin I 20.400 H* (0-0.045) ng/ml Total Protein 5.9 L (6.4-8.2) gm/dl Albumin 2.8 L (3.4-5.0) gm/dl Globulin 3.1 (2.5-4.0) gm/dl Albumin/Globulin Ratio 0.9 (0.9-2) TSH (0.300-4.500) uIu/ml Urine Color Urine Appearance (Clear) Urine pH (4.5-7.5) Ur Specific [place] (1.000-1.030) Urine Protein (Negative) Urine Glucose (UA) (Negative) Urine Ketones (Negative) Urine Blood (Negative) Urine Nitrite (Negative) Urine Bilirubin (Negative) Urine Urobilinogen (Negative) Ur Leukocyte Esterase (Negative) Urine WBC (Auto) (0-5) /hpf Urine RBC (Auto) (0-4) /hpf U Hyaline Cast (Auto) (0-5) /lpf U Epithel Cells (Auto) (0-5) /lpf Urine Bacteria (Auto) (Negative) 01/10/19 01/10/19 01/10/19 Range/Units 17:20 18:27 23:00 WBC (4.8-10.8) K/uL RBC (4.2-5.4) M/uL Hgb (12.0-16.0) g/dL Hct (37-47) % MCV (80-100) fL MCH (25-34) pg MCHC (32-36) g/dL RDW Std Deviation (36.4-46.3) fL RDW Coeff of Jeffrey (11.5-14.5) % Plt Count (130-400) K/uL MPV (7.4-10.4) fL Immature Gran % (Auto) % Neut % (Auto) % Lymph % (Auto) % [place] % (Auto) % Eos % (Auto) % Baso % (Auto) % Immature Gran # (Auto) (0.00-0.02) K/uL Neut # (Auto) (1.4-6.5) K/uL Lymph # (Auto) (1.2-3.4) K/uL [place] # (Auto) (0.11-0.59) K/uL Eos # (Auto) (0-0.5) K/uL Baso # (Auto) (0-0.2) K/uL PT (9.0-12.0) Seconds INR (0.9-1.1) APTT (21.0-31.0) Seconds PTT Ratio Sodium (136-145) mmol/L Potassium (3.5-5.1) mmol/L Chloride (98-107) mmol/L Carbon Dioxide (21-32) mmol/L Anion Gap (3-11) BUN (7-18) mg/dl Creatinine (0.6-1.2) mg/dl Est Cr Clr Drug Dosing ml/min Est GFR ( Amer) Est GFR (Non-Af Amer) BUN/Creatinine Ratio (10-20) Glucose (70-99) mg/dl POC Glucose 110 H (70-99) POC Lactic Acid Aaron (0.90-1.70) mmol/L Lactate (0.4-2.0) mmol/L Calcium (8.5-10.1) mg/dl Total Bilirubin (0.2-1) mg/dl Direct Bilirubin (0-0.2) mg/dl AST (15-37) U/L ALT (12-78) U/L Alkaline Phosphatase (45-117) U/L Total Creatine Kinase 2233 H 1485 H (26-192) U/L Troponin I 18.400 H* 18.800 H* (0-0.045) ng/ml Total Protein (6.4-8.2) gm/dl Albumin (3.4-5.0) gm/dl Globulin (2.5-4.0) gm/dl Albumin/Globulin Ratio (0.9-2) TSH (0.300-4.500) uIu/ml Urine Color Urine Appearance (Clear) Urine pH (4.5-7.5) Ur Specific [place] (1.000-1.030) Urine Protein (Negative) Urine Glucose (UA) (Negative) Urine Ketones (Negative) Urine Blood (Negative) Urine Nitrite (Negative) Urine Bilirubin (Negative) Urine Urobilinogen (Negative) Ur Leukocyte Esterase (Negative) Urine WBC (Auto) (0-5) /hpf Urine RBC (Auto) (0-4) /hpf U Hyaline Cast (Auto) (0-5) /lpf U Epithel Cells (Auto) (0-5) /lpf Urine Bacteria (Auto) (Negative) 01/11/19 01/11/19 01/11/19 Range/Units 05:59 05:59 06:10 WBC 9.15 (4.8-10.8) K/uL RBC 3.59 L (4.2-5.4) M/uL Hgb 10.5 L (12.0-16.0) g/dL Hct 33.7 L (37-47) % MCV 93.9 (80-100) fL MCH 29.2 (25-34) pg MCHC 31.2 L (32-36) g/dL RDW Std Deviation 56.8 H (36.4-46.3) fL RDW Coeff of Jeffrey 16.7 H (11.5-14.5) % Plt Count 204 (130-400) K/uL MPV 11.4 H (7.4-10.4) fL Immature Gran % (Auto) % Neut % (Auto) % Lymph % (Auto) % [place] % (Auto) % Eos % (Auto) % Baso % (Auto) % Immature Gran # (Auto) (0.00-0.02) K/uL Neut # (Auto) (1.4-6.5) K/uL Lymph # (Auto) (1.2-3.4) K/uL [place] # (Auto) (0.11-0.59) K/uL Eos # (Auto) (0-0.5) K/uL Baso # (Auto) (0-0.2) K/uL PT (9.0-12.0) Seconds INR (0.9-1.1) APTT (21.0-31.0) Seconds PTT Ratio Sodium 148 H (136-145) mmol/L Potassium 4.2 (3.5-5.1) mmol/L Chloride 119 H (98-107) mmol/L Carbon Dioxide 19 L (21-32) mmol/L Anion Gap 10.0 (3-11) BUN 52 H (7-18) mg/dl Creatinine 1.00 (0.6-1.2) mg/dl Est Cr Clr Drug Dosing 30.6 ml/min Est GFR ( Amer) 59.1 Est GFR (Non-Af Amer) 51.0 BUN/Creatinine Ratio 51.8 H (10-20) Glucose 80 (70-99) mg/dl POC Glucose (70-99) POC Lactic Acid Aaron (0.90-1.70) mmol/L Lactate (0.4-2.0) mmol/L Calcium 7.9 L (8.5-10.1) mg/dl Total Bilirubin 0.5 (0.2-1) mg/dl Direct Bilirubin 0.2 (0-0.2) mg/dl AST 150 H (15-37) U/L ALT 62 (12-78) U/L Alkaline Phosphatase 80 (45-117) U/L Total Creatine Kinase (26-192) U/L Troponin I (0-0.045) ng/ml Total Protein 5.2 L (6.4-8.2) gm/dl Albumin 2.4 L (3.4-5.0) gm/dl Globulin (2.5-4.0) gm/dl Albumin/Globulin Ratio (0.9-2) TSH 0.838 Cancelled (0.300-4.500) uIu/ml Urine Color Urine Appearance (Clear) Urine pH (4.5-7.5) Ur Specific [place] (1.000-1.030) Urine Protein (Negative) Urine Glucose (UA) (Negative) Urine Ketones (Negative) Urine Blood (Negative) Urine Nitrite (Negative) Urine Bilirubin (Negative) Urine Urobilinogen (Negative) Ur Leukocyte Esterase (Negative) Urine WBC (Auto) (0-5) /hpf Urine RBC (Auto) (0-4) /hpf U Hyaline Cast (Auto) (0-5) /lpf U Epithel Cells (Auto) (0-5) /lpf Urine Bacteria (Auto) (Negative) Imaging Data Attestation: I personally reviewed and interpreted this imaging study as follows: Radiologist's Impression: Radiology results as stated below per my review and the radiologist's interpretation: XR chest 1V portable CLINICAL HISTORY: Sepsis COMPARISON STUDY: Chest radiograph September 17, 2017. FINDINGS: There is no pneumothorax. Linear right lung density favors scarring or atelectasis. Left basilar opacity is present which may be related to a hiatal hernia. There is no evidence for overt edema. Cardiomegaly is unchanged. IMPRESSION: 1. Left basilar opacity which may be related to a hiatal hernia or reflect consolidation. 2. Small left pleural effusion. Electronically signed by: Azar Mata M.D. 01/10/2019 12:12 PM ECG Data Attestation: I personally reviewed and interpreted this ECG as follows: Indication: other (Fall) Rate (beats per minute): 70 Rhythm: normal sinus Findings: + other (Normal axis and TWI in anterior lateral and inferior leads mild improvement interiorly , T wave inversions inferiorly. ) Blood Pressure Blood Pressure Findings: Normal blood pressure MDM Narrative The patient is a 88 year old white female with past medical history of hyperlipidemia, ulcerative colitis, hyperthyroidism, IBS, and N-STEMI who pre sents to the ED with CC of a fall beginning an hour ago. Differential includes acute coronary syndrome, myocardial infarction, CVA, TIA, anemia, infection, pneumonia, UTI, pyelonephritis, poor nutrition, dehydration, electrolyte disturbance,hypoglycemia. Patient was seen and evaluated the bedside. There was concern that the patient had been down on the ground for some time. The patient does live at home. Per review the patient's medication list patient is on aspirin and Plavix. The patient does have significant skin breakdown the left upper extremity occiput mid upper back and sacrum. Wound culture was obtained patient was started on broad-spectrum antibiotics fluids and CK was also obtained. Patient does have an elevated troponin at 20. I believe this is more sepsis and stress related as the patient denies any chest pains or shortness of breath. The patient was star sandy on antibiotics given the skin breakdown and associated crackles as the patient's chest x-ray shows some atelectasis. There is also a small pleural effusion. Patient's EKG shows T wave inversions inferiorly which may not have been present prior but no ST segment elevation or depression. Patient does have old T WI in the anterior leads which do appear improved compared to prior 2017. I did speak with the on-call internal controls analyst who will continue to follow. Given the elevated CK associated rhabdo and significant dehydration we will continue to hydrate and trend the enzymes. The patient was given NH aspirin. I did speak with the on-call hospitalist who agreed to further evaluate treat the patient. Patient was admitted to the medicine service. Impression & Plan Dehydration, Elevated troponin, Rhabdomyolysis Critical Care Time I have personally spent greater than 45 minutes of critical care time in direct management of this patient. This includes bedside care, interpretation of diagnostic studies, and testing, discussion with consultants, patient, and famil y members, and other require inpatient management activities. This 45 minutes is in excess of all separately billable procedures. Critical Care Time: Yes Total Critical Care Time: 45 Discharge Plan Visit Data *Final* Discharge Date/Time: 01/10/19 16:17 Chief Complaint: Fall ED Provider: Aquiles Ramirez Discharge Problem: Dehydration, Elevated troponin, Rhabdomyolysis Patient Disposition: Admitted As Inpatient Discharge Instructions Interventions: ED Discharge Assessment Last Done: 01/10/19 16:17 The scribe's documentation has been prepared under my direction and personally reviewed by me in its entirety. I confirm that the note above accurately reflects all work, treatment, procedures, and medical decision making performed by me.
[2019-01-10] MEDS ORDERED: ACETAMINOPHEN 325 MG TAB PO PRN (17:15)
[2019-01-10] MEDS ORDERED: METOPROLOL SUCC 25MG EXT REL TAB PO SCH (17:15)
--- NOTE | 2019-01-10 17:54 | XRay Report ---
SINGLE VIEW PELVIS CLINICAL HISTORY: Fall. FINDINGS: 2 AP supine pelvic radiographs are obtained. Comparison is made to study dated 02/18/2014. T he skeletal structures are osteopenic. No acute fracture is seen involving the hips or bony pelvis. C hronic posttraumatic deformity is identified in the proximal femora. A left hip arthroplasty with a l rosey femoral stem and surrounding cerclage wires is in place. No periprosthetic lucency is seen. Inter trochanteric and intramedullary nails are present in the right femur. The orthopedic hardware appears intact. Chronic posttraumatic deformity is noted in the left pubic ring. Sclerotic degenerative gan ge is noted in the sacroiliac joints. Moderate degenerative joint space narrowing is seen in the righ t hip. The overlying soft tissues are normal in appearance. Lumbosacral spondylosis is partially imag ed. There is advanced atherosclerotic calcification of the femoral arteries. IMPRESSION: 1. There is no radiographic evidence of acute fracture involving the hips or bony pelvis. 2. Osteopenia with chronic posttraumatic and postoperative changes as above. Electronically signed by: Tyrese Rivera M.D. 01/10/2019 5:53 PM
--- NOTE | 2019-01-10 17:58 | XRay Report ---
LUMBAR SPINE 3 VIEWS CLINICAL HISTORY: Fall. Low back pain. FINDINGS: AP, lateral, and cone-down views of the lumbar spine are obtained. No prior studies are rabia ilable for comparison at the time of dictation. The skeletal structures are osteopenic. There is no e vidence of fracture or malalignment involving the lumbar spine. Vertebral body height is maintained. There is minimal retrolisthesis at L2 -L3 and minimal anterolisthesis at L4-L5. Alignment is otherwis e preserved. There is a mild chronic superior endplate compression deformity of T12, unchanged from a n 09/15/[address] The transverse and spinous processes appear intact. Anterior and lateral alicia nal osteophytes are seen throughout. Moderate disc space narrowing is seen at all lumbar levels. Adva nced facet arthropathy is seen in the lower lumbar region. The visualized sacrum and bony pelvis appe ar intact. A left hip arthroplasty is in place. Postoperative change is partially imaged in the right femur. Sclerotic degenerative change is noted in the sacroiliac joints. There is no bowel obstructio n. Advanced atherosclerotic calcification is seen in the abdominal aorta. Cholelithiasis is noted in the right upper quadrant. IMPRESSION: 1. There is no acute bony abnormality identified. 2. There is a mild chronic superior endplate compression deformity of T12. 3. Osteopenia and spondylotic change as above. 4. Cholelithiasis. Electronically signed by: Tyrese Rivera M.D. 01/10/2019 5:57 PM
--- NOTE | 2019-01-10 18:04 | CT Scan Report ---
CT SCAN OF THE BRAIN WITHOUT IV CONTRAST CLINICAL HISTORY: Fall. COMPARISON STUDY: CT of the brain dated 09/15/2017. TECHNIQUE: Unenhanced axial CT scan of the brain is performed from the vertex to the skull base. A do se lowering technique was utilized adhering to the principles of ALARA. CT DOSE: 729.78 mGycm FINDINGS: Brain parenchyma: There are age-related involutional changes noting mild subcortical and periventric ular microangiopathic change. Chronic lacunar infarct identified in the left thalamus and the left in ternal capsule. There is no hemorrhage, mass effect, or evidence of acute territorial ischemia by CT criteria. Cedeno-white matter differentiation is preserved. No extra-axial fluid collection is seen. Ventricles, sulci, cisterns: Prominent secondary to involutional change. Intracranial vasculature: There is atherosclerotic calcification of the cavernous carotid and vertebr al arteries. Calvarium: The skeletal structures are osteopenic. There is no depressed calvarial fracture. Soft tissues: There is a large right temporoparietal scalp contusion. A small contusion is also ident ified along the left parietal scalp. Sinuses and mastoids: The visualized paranasal sinuses are clear. There are trace mastoid effusions. Orbits: The bony orbits are grossly intact. There are bilateral ocular lens implants. IMPRESSION: 1. There is no hemorrhage, mass effect, or evidence of acute territorial ischemia by CT criteria. 2. Bilateral scalp injuries, right greater than left. 3. No depressed calvarial fracture is seen. Electronically signed by: Tyrese Rivera M.D. 01/10/2019 6:03 PM
--- NOTE | 2019-01-10 18:10 | History & Physical Report ---
Date of Service January 10, 2019 Assessment & Plan (1) Fall: (2) Rhabdomyolysis: -Admit to telemetry -Patient presenting from home where she was found on the floor by her son this morning. He reports that he saw her in her usual state of health yesterday morning. It is unclear exactly when patient fell and how long she had been on the floor for. Patient is currently mildly confused and history is limited from her. -In the ED, patient is found to have significant skin breakdown and bruising, UA suggestive of UTI -Total CK 3038 -BUN elevated at 52, creatinine 1.01 -IVF, monitor serial CKs -Head CT, lumbar spine x-ray, pelvis x-ray negative for acute findings -PT/OT when appropriate (3) Elevated troponin: (4) CAD (coronary artery disease): -Troponin on arrival 20.4 -EKG demonstrates deeper T wave inversions inferiorly -No reports of chest pain -Troponin elevation likely secondary to demand ischemia from severe rhabdomyolysis/traumatic myopathy -Would avoid heparin at this time given extensive bruising from fall -Continue cycle cardiac enzymes, check resting echo -Cardiology consult, case discussed with Dr. Jenkins -Aspirin given rectally in the ED -Patient typically on aspirin, Plavix, statin, beta-vandana at home however currently unable to swallow (5) UTI (urinary tract infection): -UA suggest UTI -Do not suspect sepsis -IV ceftriaxone, adjust per culture results -Noted urine culture from 09/25 grew Klebsiella that was nitrofurantoin resistant (6) Skin breakdown: -Patient noted to have extensive skin breakdown/bruising on admission -Wound care consult, specialty mattress (7) Difficulty swallowing: -N.p.o., speech evaluation -Could consider brain MRI for CVA evaluation; no other gross focal deficits are noted at this time (8) Heart failure due to valvular disease: (9) Chronic systolic CHF (congestive heart failure): (10) Aortic valve stenosis: -Echo 07/2017-EF 45-50%, grade 1 diastolic dysfunction, moderate aortic stenosis and aortic regurgitation, moderate to severe mitral regurgitation, moderate tricuspid regurgitation -Outpatient records indicate the patient should be on Lasix 40 mg daily, however it appears as though patient has not had this medication filled in some time -Diuretics not indicated at this point given severe rhabdomyolysis -Monitor volume status closely, reintroduced diuretics if indicated (11) CKD (chronic kidney disease), stage III: -Baseline creatinine runs in the low 1's -Creatinine today 1.01 however BUN 52 suggesting dehydration -IVF, follow renal functions closely (12) Ulcerative colitis: -Resume methylamine when taking p.o. (13) Gout: -Resume allopurinol and taking p.o. (14) Hypothyroidism: -Resume levothyroxine when taking p.o. (15) DVT prophylaxis: -SQ heparin History of Present Illness Chief Complaint: Fall Primary Care Provider: Russ Doshi 88-year-old female who presents to the ED after being found on the floor by her son today. Per ER documentation, the patient was last seen by her son yesterday morning. Patient seems to be a little bit confused with poor insight so therefore history is limited from her. She reports to me that she fell on Monday (4 days ago) however does not appear to be the case since her son saw her in her usual state of health yesterday. Patient is currently complaining of b ack pain however is without other complaints. She denies chest pain, palpitations. No loss of consciousness. Patient was found to be incontinent of a large amount of diarrhea upon arrival to the ED. She denies abdominal pain, nausea, vomiting. No other recent illnesses, fevers, chills. She denies urinary symptoms. In the ED, patient is found to have significant skin breakdown scattered over her entire body. UA is suggestive of UTI. WBC 13 K, total CK 3038, troponin 20.4. EKG demonstrates worsening T wave inversions inferiorly. Patient was given IVF, IV Vanco, IV Zosyn, IV Doxy, IV ceftriaxone, full dose aspirin. Allergies Allergy/AdvReac Type Severity Reaction Status Date / Time aspirin Allergy Unknown nown Verified 01/10/19 12:05 mesalamine Allergy Unknown . Verified 01/10/19 12:05 metformin Allergy Unknown . Verified 01/10/19 12:05 NSAIDS (Non-Steroidal Allergy Unknown . Verified 01/10/19 12:05 Anti-Inflamma Bisphosphonates Allergy Unknown . Uncoded 01/10/19 12:05 Home Medications Home Medications Medication Instructions Recorded Confirmed Type allopurinol 300 mg PO QAM 01/10/19 01/10/19 History aspirin 81 mg PO QAM 01/10/19 01/10/19 History atorvastatin 20 mg PO HS 01/10/19 01/10/19 History clopidogrel 75 mg PO QAM 01/10/19 01/10/19 History levothyroxine 75 mcg PO QAM 01/10/19 01/10/19 History mesalamine [Apriso] 0.375 g PO BID 01/10/19 01/10/19 History metoprolol succinate 25 mg PO QAM 01/10/19 01/10/19 History potassium chloride 10 meq PO QAM 01/10/19 01/10/19 History Past Med/Surg History Medical History History of hysterectomy (Chronic) Hip fracture, right (Chronic) s/p repair CAD (coronary artery disease) (Chronic) hx of septal wall infarction CKD (chronic kidney disease), stage III (Chronic) Ulcerative colitis (Chronic) Lymphedema (Chronic) Aortic valve stenosis (Chronic) Heart failure due to valvular disease (Chronic) Chronic systolic CHF (congestive heart failure) (Chronic) Gout (Chronic) Hypothyroidism (Chronic) Diabetes mellitus type 2, diet-controlled (Chronic) Surgical History History of cataract surgery (Chronic) History of appendectomy (Chronic) History of total left hip replacement (Chronic) Family History Other Family history non-contributory Social History Preferred Language: Welsh Communication Ability: Effective Database Security Expert Required: No Beliefs That Will Affect Care: None Current Living Situation: Alone Other Information That Helps Us Care for You: No Feels Safe at Home: Yes Smoking Status: Never smoker Hx Alcohol Use: No Hx Substance Use: No Review of Systems Reviewed with patient however felt to be somewhat unreliable due to mild confusion / poor insight. Physical Exam Vital Signs (Past 24 Hours): Last Vital Signs Temp 36.1 C L 01/10/19 11:24 Pulse 79 01/10/19 16:17 Resp 20 01/10/19 16:17 BP 136/65 01/10/19 16:17 Pulse Ox 97 01/10/19 16:17 Constitutional: + ill appearing and + frail appearing Vitals as above Eyes: PERRL, conjunctivae normal, anicteric sclerae ENMT: Ears: + hearing impairment; no external ear abnormality Nose: + dry nasal mucous membranes; no external nose abnormality Respiratory: normal respiratory effort; no respiratory distress Auscultation: + diminished lung sounds Cardiovascular: Rate/Rhythm: regular rate and regular rhythm Vessels: normal peripheral pulses Extremities: + edema (Lymphedema BLE) Gastrointestinal (Abdomen): normal bowel sounds, soft, nontender, no hepatosplenomegaly Musculoskeletal: Extremities: no cyanosis and no clubbing Strength 3-4/5 throughout all extremities, generally weak Skin: Multiple areas of skin breakdown/ecchymosis, please refer to wound pictures in chart Neurologic: PERRL, EOMI, accommodation nl, no face palsy, no dysarthria Psychiatric: A+Ox3, euthymic affect (Forgetful, mildly confused) Insight: + poor insight Results & Data Laboratory Results Laboratory Last Values WBC 13.23 K/uL (4.8-10.8) H 01/10/19 12:08 RBC 4.00 M/uL (4.2-5.4) L 01/10/19 12:08 Hgb 11.6 g/dL (12.0-16.0) L 01/10/19 12:08 Hct 37.0 % (37-47) 01/10/19 12:08 MCV 92.5 fL (80-100) 01/10/19 12:08 MCH 29.0 pg (25-34) 01/10/19 12:08 MCHC 31.4 g/dL (32-36) L 01/10/19 12:08 RDW Std Deviation 54.0 fL (36.4-46.3) H 01/10/19 12:08 RDW Coeff of Jeffrey 16.3 % (11.5-14.5) H 01/10/19 12:08 Plt Count 243 K/uL (130-400) 01/10/19 12:08 MPV 11.4 fL (7.4-10.4) H 01/10/19 12:08 Immature Gran % (Auto) 0.3 % 01/10/19 12:08 Neut % (Auto) 82.8 % 01/10/19 12:08 Lymph % (Auto) 5.4 % 01/10/19 12:08 [place] % (Auto) 11.3 % 01/10/19 12:08 Eos % (Auto) 0.1 % 01/10/19 12:08 Baso % (Auto) 0.1 % 01/10/19 12:08 Immature Gran # (Auto) 0.04 K/uL (0.00-0.02) H 01/10/19 12:08 Neut # (Auto) 10.96 K/uL (1.4-6.5) H 01/10/19 12:08 Lymph # (Auto) 0.71 K/uL (1.2-3.4) L 01/10/19 12:08 [place] # (Auto) 1.50 K/uL (0.11-0.59) H 01/10/19 12:08 Eos # (Auto) 0.01 K/uL (0-0.5) 01/10/19 12:08 Baso # (Auto) 0.01 K/uL (0-0.2) 01/10/19 12:08 PT 13.2 Seconds (9.0-12.0) H 01/10/19 12:08 INR 1.3 (0.9-1.1) H 01/10/19 12:08 APTT 27.9 Seconds (21.0-31.0) 01/10/19 12:08 PTT Ratio 1.0 01/10/19 12:08 Sodium 143 mmol/L (136-145) 01/10/19 12:08 Potassium 4.9 mmol/L (3.5-5.1) 01/10/19 12:08 Chloride 114 mmol/L (98-107) H 01/10/19 12:08 Carbon Dioxide 18 mmol/L (21-32) L 01/10/19 12:08 Anion Gap 11.0 (3-11) 01/10/19 12:08 BUN 52 mg/dl (7-18) H 01/10/19 12:08 Creatinine 1.01 mg/dl (0.6-1.2) 01/10/19 12:08 Est Cr Clr Drug Dosing 29.4 ml/min 01/10/19 12:08 Est GFR ( Amer) 58.4 01/10/19 12:08 Est GFR (Non-Af Amer) 50.4 01/10/19 12:08 BUN/Creatinine Ratio 51.9 (10-20) H 01/10/19 12:08 Glucose 103 mg/dl (70-99) H 01/10/19 12:08 POC Glucose 110 (70-99) H 01/10/19 17:20 POC Lactic Acid Aaron 1.77 mmol/L (0.90-1.70) H 01/10/19 11:38 Lactate 1.6 mmol/L (0.4-2.0) 01/10/19 12:08 Calcium 8.3 mg/dl (8.5-10.1) L 01/10/19 12:08 Total Bilirubin 0.7 mg/dl (0.2-1) 01/10/19 12:08 AST 208 U/L (15-37) H 01/10/19 12:08 ALT 59 U/L (12-78) 01/10/19 12:08 Alkaline Phosphatase 92 U/L (45-117) 01/10/19 12:08 Total Creatine Kinase 3038 U/L (26-192) H 01/10/19 12:08 Troponin I 18.400 ng/ml (0-0.045) H* 01/10/19 18:27 Total Protein 5.9 gm/dl (6.4-8.2) L 01/10/19 12:08 Albumin 2.8 gm/dl (3.4-5.0) L 01/10/19 12:08 Globulin 3.1 gm/dl (2.5-4.0) 01/10/19 12:08 Albumin/Globulin Ratio 0.9 (0.9-2) 01/10/19 12:08 Urine Color Yellow 01/10/19 11:25 Urine Appearance Clear (Clear) 01/10/19 11:25 Urine pH 5.0 (4.5-7.5) 01/10/19 11:25 Ur Specific [place] 1.020 (1.000-1.030) 01/10/19 11:25 Urine Protein Negative (Negative) 01/10/19 11:25 Urine Glucose (UA) Negative (Negative) 01/10/19 11:25 Urine Ketones Trace (Negative) H 01/10/19 11:25 Urine Blood 2+ (Negative) H 01/10/19 11:25 Urine Nitrite Positive (Negative) H 01/10/19 11:25 Urine Bilirubin Negative (Negative) 01/10/19 11:25 Urine Urobilinogen Negative (Negative) 01/10/19 11:25 Ur Leukocyte Esterase Trace (Negative) H 01/10/19 11:25 Urine WBC (Auto) 1-5 /hpf (0-5) 01/10/19 11:25 Urine RBC (Auto) 0-4 /hpf (0-4) 01/10/19 11:25 U Hyaline Cast (Auto) 10-30 /lpf (0-5) H 01/10/19 11:25 U Epithel Cells (Auto) 20-30 /lpf (0-5) H 01/10/19 11:25 Urine Bacteria (Auto) 2+ (Negative) H 01/10/19 11:25 Diagnostic Findings CXR IMPRESSION: 1. Left basilar opacity which may be related to a hiatal hernia or reflect consolidation. 2. Small left pleural effusion. HEAD CT IMPRESSION: 1. There is no hemorrhage, mass effect, or evidence of acute territorial ischemia by CT criteria. 2. Bilateral scalp injuries, right greater than left. 3. No depressed calvarial fracture is seen. LUMBAR SPINE XR IMPRESSION: 1. There is no acute bony abnormality identified. 2. There is a mild chronic superior endplate compression deformity of T12. 3. Osteopenia and spondylotic change as above. 4. Cholelithiasis. PELVIS XR IMPRESSION: 1. There is no radiographic evidence of acute fracture involving the hips or bony pelvis. 2. Osteopenia with chronic posttraumatic and postoperative changes as above. Code Status & VTE Plan Code Status Patient is a DNR as per my discussion with patient's son, Antolin via telephone. VTE Prophylaxis Plan VTE Prophylaxis will be ordered: Yes Supervising Physician Co-Signing Physician Notes Care coordinated with Lucia Zarate ELEMENTARY SCHOOL BAND DIRECTOR. Agree with above note. Patient seen and examined. Please refer to her notes for full details. Vital signs reviewed. Physical exam: General exam: Confused. Lethargic CVS: S1 and S2 heard, regular rate and rhythm, no murmurs. RS: Clear to auscultation, no wheezing or crackles. ABD: Soft, bowel sounds present, no distention. DIRECTOR ORANGE: confused, moves extremities Skin multiple brusies seen on the extremities and shoulders EXT: No edema, no erythema. Labs: Reviewed. Assessment and plan: 88 F was found on the edna at home. Patinet s confused. Answers some questions,. Denies chest pain or sob or nausea. Labs showed elevated cpk and troponin, ekg T wave inversions in inferiolateral leads and uti. Fall found on the floor at home cause? UTI, NSTEMI, Seizures, CVA? Rhabdomyolysis on fluids follow repeat cpk and renal function Elevated troponin troponin 20 on presentation ekg changes as above cardiology notified received aspirin TN in Er to continue home aspirin, plavix, b vandana trend enzymes follow echo no heparin UTI rocephin follow cx CVA? ct head unremarkable if no improvement consider MRI and eeg. Other diagnosis and plan of care as per []. Jean Claude phoenix MD.
[2019-01-10] MEDS: SODIUM CHLORIDE 0.9% 1000ML 1,000 ML IV SCH (18:58)
[2019-01-10 19:01] LABS: Troponin I 18.4 ng/ml (0-0.045)
[2019-01-10] MEDS ORDERED: ATORVASTATIN 20 MG TAB PO SCH (21:00)
[2019-01-10] MEDS: HEPARIN SOD 5,000 UNIT/0.5 ML VIAL SQ SCH (21:56)
--- NOTE | 2019-01-10 22:22 | Wound Consultation ---
Date of Consultation January 10, 2019 Assessment & Plan (1) Skin breakdown: Patient with ecchymosis and skin breakdown secondary to suspect deep tissue injury is of unclear depth. She was reportedly down for 24 hours so I would expect the wounds to continue to declare themselves over the next 24-48 hours. We will continue to monitor. At this time most important is offloading. Patient with waffle boots, low air loss mattress and offloading pillow. We will continue to monitor. Please not hesitate to call with any questions. Thank you for allowing me to participate in the care of this patient. (2) Suspected deep tissue injury of unknown depth of upper back: (3) Suspected deep tissue injury of unknown depth of head: History of Present Illness Attending Physician: Ladonna Morrissey DO This is an 88-year-old female with a complicated medical history including CKD, ulcerative colitis, lymphedema, aortic valve stenosis, gout, hypothyroidism, type 2 diabetes mellitus who was admitted status post fall with rhabdomyolysis and urinary tract infection. I asked to see patient secondary to deep tissue injuries secondary to pressure. Patient reports that she fell out of bed around 1 AM this morning. She was reportedly down approximately 24 hours. She is a poor historian. She does admit to being in pain. Allergies Allergy/AdvReac Type Severity Reaction Status Date / Time aspirin Allergy Unknown uknown Verified 01/10/19 12:05 mesalamine Allergy Unknown . Verified 01/10/19 12:05 metformin Allergy Unknown . Verified 01/10/19 12:05 NSAIDS (Non-Steroidal Allergy Unknown . Verified 01/10/19 12:05 Anti-Inflamma Bisphosphonates Allergy Unknown . Uncoded 01/10/19 12:05 Home Medications Home Medications Medication Instructions Recorded Confirmed Type allopurinol 300 mg PO QAM 01/10/19 01/10/19 History aspirin 81 mg PO QAM 01/10/19 01/10/19 History atorvastatin 20 mg PO HS 01/10/19 01/10/19 History clopidogrel 75 mg PO QAM 01/10/19 01/10/19 History levothyroxine 75 mcg PO QAM 01/10/19 01/10/19 History mesalamine [Apriso] 0.375 g PO BID 01/10/19 01/10/19 History metoprolol succinate 25 mg PO QAM 01/10/19 01/10/19 History potassium chloride 10 meq PO QAM 01/10/19 01/10/19 History Patient History Medical History History of hysterectomy (Chronic) Hip fracture, right (Chronic) s/p repair CAD (coronary artery disease) (Chronic) hx of septal wall infarction CKD (chronic kidney disease), stage III (Chronic) Ulcerative colitis (Chronic) Lymphedema (Chronic) Aortic valve stenosis (Chronic) Heart failure due to valvular disease (Chronic) Chronic systolic CHF (congestive heart failure) (Chronic) Gout (Chronic) Hypothyroidism (Chronic) Diabetes mellitus type 2, diet-controlled (Chronic) Surgical History History of cataract surgery (Chronic) History of appendectomy (Chronic) History of total left hip replacement (Chronic) Family History Other Family history non-contributory Social History Preferred Language: Mongolian Communication Ability: Effective Apartment Rental Clerk Required: No Beliefs That Will Affect Care: None Current Living Situation: Alone Other Information That Helps Us Care for You: No Feels Safe at Home: Yes Smoking Status: Never smoker Hx Alcohol Use: No Hx Substance Use: No Review of Systems Patient is focused on the fact that she is cold and pain denies any other complaints. 10 point review of systems is assumed negative but again limited. Physical Exam Vital Signs (Past 24 Hours): Last Vital Signs Temp 36.4 C L 01/10/19 19:32 Pulse 80 01/10/19 19:32 Resp 20 01/10/19 19:32 BP 144/68 H 01/10/19 19:32 Pulse Ox 97 01/10/19 19:32 Constitutional: WD/WN, vitals as above Respiratory: normal respiratory effort, lungs clear to auscultation Cardiovascular: Rate/Rhythm: regular rate and regular rhythm Skin: Wound measuring as recorded in nursing documentation. Patient with numerous ecchymoses in the start of a skin breakdown throughout her back and occiput. Neurologic: awake; not confused
[2019-01-11 00:21] LABS: Troponin I 18.8 ng/ml (0-0.045)
--- NOTE | 2019-01-11 03:49 | Consultation Report ---
DATE OF CONSULTATION: 01/10/2019 REFERRING: RAMIRO Ochoa, and Aquiles Ramirez PRIMARY CARE PHYSICIAN: Russ Doshi MD INDICATIONS: Elevated troponin, recent fall. HISTORY OF PRESENT ILLNESS: The patient is an 88-year-old female with somewhat complex past medical history. She carries a history of type 2 diabetes mellitus, ulcerative enterocolitis, history of valvular heart disease by prior echocardiogram in 2017 with ukol-ow-[id number] aortic stenosis, greater mitral and tricuspid insufficiency. She carries a history of non-ST segment elevation myocardial infarction with segmental abnormalities noted during hospitalization in 2017. The patient has been managed medically since then. She notes generally having done relatively well until recent event. Notes having suffered a fall, unexplained by patient. Feels she fell out of bed, found herself on the floor and was unable to arise. She felt she was on the floor for at least 4 hours, perhaps longer. The patient's recollection was somewhat poor. She notes no recent chest pains, notes no tachypalpitations, notes no syncope or near syncope. Does occasionally get up at night to go to the bathroom, has not been aware of any bleeding difficulties. Notes no melena, hematochezia, dysuria or hematuria. Does have a cough currently during examination, feels this is a new finding. She denies headache or visual changes. She is aware of a contusion on her left forehead. Notes no acute weight loss or gain. She has generally been independent. She has a history of chronic lymphedema and difficulty healing of her lower extremities per patient and she has been seeing lymphedema clinic since October noting substantial improvement in legs and erythema and drainage with near complete healing. Overall is pleased. REVIEW OF SYSTEMS: Otherwise negative or unobtainable. ALLERGIES: NOTED TO BE ACTONEL, ALENDRONATE, ASPIRIN, METFORMIN, AND NONSTEROIDALS DUE TO GI BLEEDING. PAST SURGICAL HISTORY: Notable for cataract extraction and urethral and bladder surgery in 1998, partial hysterectomy, and appendectomy. FAMILY HISTORY: Per patient is not notable for coronary artery disease but chart reveals heart disease in father at age 47 and in brother. SOCIAL HISTORY: The patient is a nonsmoker, nondrinker. PHYSICAL EXAMINATION: GENERAL: The patient is an elderly female with dry oral mucosa and visible contusion in the left forehead. VITAL SIGNS: Reveal a heart rate of 79, a blood pressure of 136/65 after fluid resuscitation in the ER. HEENT: Normocephalic. Nares without discharge. Throat was clear. NECK: Supple. There is no distinct jugular venous distention. There are no carotid bruits. LUNGS: Reveal coarse rhonchi in the anterior right chest with forced cough. CARDIOVASCULAR: Regular. There is a grade 1/6 systolic murmur at the apex and right upper sternal border. There is no diastolic murmur. ABDOMEN: Soft, nontender. There is tenderness of the left and right chest and flank. EXTREMITIES: Without cyanosis or clubbing. There is chronic lymphedematous changes of both lower extremities. NEUROLOGIC: The patient is somewhat groggy but does answer some questions. She is extremely hard of hearing. She is moving extremities without focal deficit. DATA: EKG on presentation at 1116 today showed sinus rhythm with Q-waves in the anterior precordial leads, deep T-wave inversion in V3 through V6 and inferior leads III and aVF. LABORATORY STUDIES: White cell count is 13.2, hemoglobin is 11.6, hematocrit is 37.0, platelet count is 243. INR is 1.3. Sodium is 143, potassium is 4.9, chloride is 114, bicarbonate is 18, BUN is 52, creatinine is 1.0, glucose is 103, total CK is 3038 with an MB fraction not listed. Troponin is 20.4, albumin is 2.8. IMAGING DATA: Chest x-ray revealed mild basilar opacities, small left pleural effusion, no pneumothorax, mild cardiomegaly. 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 She denies any chest pains or recent syncope. Notes no current chest pain, but is tender to areas of injury. Does have a loose rattling cough and suspicious for an aspiration. Laboratory studies reflect metabolic acidosis. She is receiving IV fluids for presumed rhabdomyolysis, elevated CPK and troponins. RECOMMENDATIONS: Agree with the above evaluation. In addition, sepsis evaluation has been begun. Cultures drawn. Echocardiogram has been ordered to follow for signs and symptoms of acute myocardial injury given ill-defined fall. We will continue to follow the patient in the hospital. I agree with hydration. We will assess degree of valvular disease. Would continue metoprolol as ordered, aspirin and atorvastatin. Reluctant to add IV heparin despite elevated troponins given injury as a source of possible elevation. Serial EKGs also ordered. Will follow patient in the hospital.
[2019-01-11] MEDS: SODIUM CHLORIDE 0.9% 1000ML 1,000 ML IV SCH ×2 (04:19→14:44)
[2019-01-11] MEDS ORDERED: LEVOTHYROXINE SODIUM 75 MCG TABLET PO SCH (06:30)
[2019-01-11 06:39] LABS: Hematocrit (blood only) 33.7 % (37-47); Hemoglobin 10.5 g/dL (12.0-16.0); Mean Corpuscular Hgb Conc 31.2 g/dL (32-36); Mean Corpuscular Volume 93.9 fL (80-100); Mean Platelet Volume 11.4 fL (7.4-10.4); Platelet Count 204 K/uL (130-400); RDW Coefficient of Variation 16.7 % (11.5-14.5); RDW Standard Deviation 56.8 fL (36.4-46.3); Red Blood Count 3.59 M/uL (4.2-5.4); White Blood Count 9.15 K/uL (4.8-10.8)
[2019-01-11] MEDS: METOPROLOL TARTRATE 1 MG/ML VIAL IV SCH ×4 (06:43→23:50)
[2019-01-11 07:15] LABS: Albumin Level 2.4 gm/dl (3.4-5.0); BUN Creatinine Ratio 51.8 (10-20); Bilirubin Direct 0.2 mg/dl (0-0.2); Calcium 7.9 mg/dl (8.5-10.1); Creatinine Clr Calc Pharmacy 30.6 ml/min; Est GFR (African American) 59.1; Potassium 4.2 mmol/L (3.5-5.1)
[2019-01-11 07:26] LABS: Bilirubin,Total 0.5 mg/dl (0.2-1); Total Protein 5.2 gm/dl (6.4-8.2)
[2019-01-11] MEDS ORDERED: LEVOTHYROXINE SODIUM 37.5 MCG in SYRINGE 0 ML IV SCH (08:30)
[2019-01-11] MEDS ORDERED: ASPIRIN 81 MG ECTAB PO SCH (09:00)
[2019-01-11] MEDS ORDERED: CLOPIDOGREL BISULFATE 75 MG TAB PO SCH (09:00)
[2019-01-11] MEDS ORDERED: cefTRIAXone SODIUM 1,000 MG in DEXTROSE 5% 50 ML IV SCH (09:00)
[2019-01-11] MEDS ORDERED: ALLOPURINOL 300 MG TAB PO SCH (09:00)
[2019-01-11] MEDS: HEPARIN SOD 5,000 UNIT/0.5 ML VIAL SQ SCH ×2 (09:24→20:27)
--- NOTE | 2019-01-11 13:42 | Cardiology Progress Note ---
Date of Service January 11, 2019 Assessment & Plan (1) Rhabdomyolysis: Elevated CPK and troponin with clinical history of fall with extended time down total duration unknown Would continue to treat with IV hydration, antibiotics for underlying illnesses. Suspect component of aspiration on examination and history (2) Elevated troponin: Suspect multifactorial with fall and injury and acute renal insufficiency contributing. But also term possible demand based ischemia versus catecholamine mediated. Echocardiogram reflects old septal wall motion normality with diffuse hypokinesis Multiple injuries preclude use of heparin currently. Would continue dual antiplatelet therapy with aspirin and clopidogrel as well as atorvastatin and metoprolol (3) CAD (coronary artery disease): Presumed by prior echocardiogram and elevated troponins during past admission (4) Aortic valve stenosis: Echocardiogram reveals borderline severe to severe aortic stenosis likely complicating patient's acute presentation (5) Cardiomyopathy as manifestation of underlying disease: Plan as above would not add LALO inhibitor at this time Subjective Patient seen and examined, chart medications telemetry reviewed. Slightly brighter than yesterday still with coarse cough. Denies any chest pains or discomfort Physical Exam Vital Signs (Past 24 Hours): Last Vital Signs Temp 36.5 C 01/11/19 11:21 Pulse 76 01/11/19 11:21 Resp 20 01/11/19 11:21 BP 157/66 H 01/11/19 11:21 Pulse Ox 98 01/11/19 11:28 Constitutional: + frail appearing; not in distress ENMT: external ear and nose normal, oropharynx normal Neck: trachea midline, no thyromegaly Respiratory: Auscultation: + rhonchi (Right sided with cough) Cardiovascular: Rate/Rhythm: regular rate and regular rhythm Heart Sounds: + murmur (Grade 2/6 systolic, no diastolic); no gallop and no cardiac rub Gastrointestinal (Abdomen): normal bowel sounds, soft, nontender, no hepatosplenomegaly Musculoskeletal: There are chronic lymphedematous changes of bilateral lower extremities with 1+ edema, chronic excoriation Skin: + ecchymosis (Large areas left alevism, left arm shoulder, and hip) Results & Data Laboratory Results Laboratory Results - last 24 hr 01/10/19 01/10/19 01/10/19 17:20 18:27 23:00 WBC RBC Hgb Hct MCV MCH MCHC RDW Std Deviation RDW Coeff of Jeffrey Plt Count MPV Sodium Potassium Chloride Carbon Dioxide Anion Gap BUN Creatinine Est Cr Clr Drug Dosing Est GFR ( Amer) Est GFR (Non-Af Amer) BUN/Creatinine Ratio Glucose POC Glucose 110 H Calcium Total Bilirubin Direct Bilirubin AST ALT Alkaline Phosphatase Total Creatine Kinase 2233 H 1485 H Troponin I 18.400 H* 18.800 H* Total Protein Albumin TSH 01/11/19 01/11/19 01/11/19 05:59 05:59 06:10 WBC 9.15 RBC 3.59 L Hgb 10.5 L Hct 33.7 L MCV 93.9 MCH 29.2 MCHC 31.2 L RDW Std Deviation 56.8 H RDW Coeff of Jeffrey 16.7 H Plt Count 204 MPV 11.4 H Sodium 148 H Potassium 4.2 Chloride 119 H Carbon Dioxide 19 L Anion Gap 10.0 BUN 52 H Creatinine 1.00 Est Cr Clr Drug Dosing 30.6 Est GFR ( Amer) 59.1 Est GFR (Non-Af Amer) 51.0 BUN/Creatinine Ratio 51.8 H Glucose 80 POC Glucose Calcium 7.9 L Total Bilirubin 0.5 Direct Bilirubin 0.2 AST 150 H ALT 62 Alkaline Phosphatase 80 Total Creatine Kinase Troponin I Total Protein 5.2 L Albumin 2.4 L TSH 0.838 Cancelled ECG Additional Comments: 11-JAN-2019 06:29:04 [facility] Normal sinus rhythm Nonspecific ST and T wave abnormality Prolonged QT Abnormal ECG When compared with ECG of 10-JAN-2019 11:16, (unconfirmed) Criteria for Anterior infarct are no longer Present ST now depressed in Anterior leads T wave inversion less evident in Anterior leads Overall improved comparison to prior days tracing
--- NOTE | 2019-01-11 14:18 | Hospitalist Progress Note ---
Date of Service January 11, 2019 Assessment & Plan (1) UTI (urinary tract infection): Acute urinary retention prompting Ann likely secondary to urinary tract infection. Rocephin was started empirically pending cultures. Changing to Zosyn in setting of multiple infections. (2) Pneumonia: Questionable aspiration pneumonia patient has difficulty swallowing is strictly n.p.o. This is a new occurrence for her. Continue Zosyn for coverage of anaerobes in setting of possible aspiration pneumonia. Blood cultures are pending. (3) Fall: (4) Elevated troponin: Demand ischemia in the setting of rhabdomyolysis (5) Rhabdomyolysis: Rhabdomyolysis secondary to prolonged immobilization on the floor. Elevated CK also secondary to rhabdomyolysis. The patient has some soreness which will treat with Tylenol. She denies any chest pain and does not appear to have any ACS. She appears to be more oriented today, going through the events pretty clearly. Continue IV fluid resuscitation. PT OT. Patient states her baseline is 50% walking with walker and 50% in the wheelchair. Monitor serial CKs. Monitor renal function. (6) CAD (coronary artery disease): Stable, no chest pain, cardiology consulted. Continue medical management, however patient is currently n.p.o. and is not able to take her aspirin, Plavix, statin. Beta-vandana was converted to IV. (7) Skin breakdown: -Patient noted to have extensive skin breakdown/bruising on admission -Wound care consult, specialty mattress (8) Difficulty swallowing: Today is day 2 of difficulty swallowing. N.p.o. status is strongly recommended via speech pathology. However, patient was swallowing just fine prior to these events. Will order MRI of the brain to rule out stroke pathology or other issue from a neurologic standpoint. If patient is not tolerating p.o. by Monday will consider placing NGT for enteral feeding. Will consult nutrition. Hold all PO meds. (9) Chronic systolic CHF (congestive heart failure): compensated. Cont current management. Normal saline running while patient is n.p.o. Will turn down weight from 100 cc an hour to 60 cc an hour to avoid issues with volume overload. Continue to monitor volume status daily. (10) Aortic valve stenosis: (11) CKD (chronic kidney disease), stage III: At baseline. (12) Ulcerative colitis: -Resume methylamine when taking p.o. (13) Hypothyroidism: IV Synthroid while n.p.o. (14) Anemia in chronic illness: (15) DVT prophylaxis: -SQ heparin DO NOT RESUSCITATE Disposition-continue telemetry. Ladonna Morrissey DO [facility] Hospitalist Subjective Appears to be oriented. Is able to recall recent events. Somewhat confused with the date. Denies any chest pain, shortness of breath but does report an overall soreness which she would like Tylenol Unable to eat as difficulty swallowing Acute urinary retention reported on admission, Ann in place. Patient denies any UTI symptoms. Pneumonia seen on x-ray. Patient reports productive coughing. Denies fevers or chills. Physical Exam Vital Signs (Past 24 Hours): Last Vital Signs Temp 36.5 C 01/11/19 11:21 Pulse 76 01/11/19 13:06 Resp 20 01/11/19 11:21 BP 157/71 H 01/11/19 13:06 Pulse Ox 98 01/11/19 11:28 CONSTITUTIONAL: WNWD, vitals as above, generally ill-appearing, elderly EYES: irritated conjuctivae, no scleral icterus, purulent crusted drainage around both eyes with some erythema on the lower eyelid R>L ENT: external ear and nose normal, oropharynx clear RESPIRATORY: clear to auscultation bilaterally, no crackles, rales or wheezes, normal respiratory effort. This exam was limited as movement is limited 2/2 we akness and patient was not following directions to take deep breaths. CARDIOVASCULAR: regular rate and irrhythm, S1 and 2 heard without murmurs, gallops or rubs, no JVD, 2+ pitting edema with a chronic woody appearance to lower legs bilaterally. Ulcers on both lower legs GASTROINTESTINAL: normal bowel sounds, soft, nontender, nondistended MUSCULOSKELETAL: posterior head wound with drainage. some minor bruising on her L eye. Generalized weakness. SKIN: warm and dry, wounds on back multiple. As above. NEUROLOGIC: CN 2-12 grossly intact, speech intact, oriented. PSYCHIATRIC: alert cooperative and oriented to person, place and time. Results & Data Laboratory Results Short CBC 01/11/19 Range/Units 05:59 WBC 9.15 (4.8-10.8) K/uL Hgb 10.5 L (12.0-16.0) g/dL Hct 33.7 L (37-47) % Plt Count 204 (130-400) K/uL BMP 01/11/19 05:59 Sodium 148 H Potassium 4.2 Chloride 119 H Carbon Dioxide 19 L BUN 52 H Creatinine 1.00 Glucose 80 Calcium 7.9 L Cardiac Enzymes 01/10/19 01/10/19 Range/Units 18:27 23:00 Total Creatine Kinase 2233 H 1485 H (26-192) U/L Troponin I 18.400 H* 18.800 H* (0-0.045) ng/ml Liver Function 01/11/19 Range/Units 05:59 Total Bilirubin 0.5 (0.2-1) mg/dl Direct Bilirubin 0.2 (0-0.2) mg/dl AST 150 H (15-37) U/L ALT 62 (12-78) U/L Alkaline Phosphatase 80 (45-117) U/L Albumin 2.4 L (3.4-5.0) gm/dl Medications Administered Current Inpatient Medications Acetaminophen (Tylenol) 650 mg PO Q4H PRN PRN Reason: Pain or Fever Stop: 02/09/19 17:14 [facility]) [facility] Stop: 02/10/19 08:59 Last Admin: 01/11/19 08:34 Dose: Not Given Documented by: Aspirin (Ecotrin Ectab) 81 mg PO QAM [facility] Stop: 02/10/19 08:59 Last Admin: 01/11/19 08:34 Dose: Not Given Documented by: Atorvastatin Calcium (Lipitor) 20 mg PO [facility] Stop: 02/09/19 20:59 Last Admin: 01/10/19 23:10 Dose: Not Given Documented by: Clopidogrel Bisulfate (Plavix) 75 mg PO QAM [facility] Stop: 02/10/19 08:59 Last Admin: 01/11/19 08:34 Dose: Not Given Documented by: Heparin Sodium (Porcine) (Heparin Sodium (Porcine)) 5,000 units SQ Q12 [facility] Stop: 02/09/19 20:59 Last Admin: 01/11/19 09:24 Dose: 5,000 units Documented by: Sodium Chloride (Nss 1000ml) 1,000 mls @ 100 mls/hr IV .Q10H [facility] Stop: 02/09/19 17:14 Last Admin: 01/11/19 04:19 Dose: 100 mls/hr Documented by: Ceftriaxone Sodium 1,000 mg/ (Dextrose) 50 mls @ 100 mls/hr IV Q24H [facility]; Protocol Stop: 01/15/19 08:59 Last Infusion: 01/11/19 11:11 Dose: Infused Documented by: Levothyroxine Sodium (Synthroid) 75 mcg PO DAILYBB [facility] Stop: 02/11/19 06:29 Metoprolol Succinate (Toprol Xl) 25 mg PO QAM [facility] Stop: 02/09/19 17:14 Last Admin: 01/10/19 19:22 Dose: Not Given Documented by: Metoprolol Tartrate (Lopressor) 2.5 mg IV Q6H [facility] Stop: 02/10/19 06:29 Last Admin: 01/11/19 13:06 Dose: 2.5 mg Documented by: Miscellaneous (Order Awaiting Action) 1 ea N/A QS [facility] Stop: 02/09/19 17:44 Last Admin: 01/11/19 08:34 Dose: Not Given Documented by:
--- NOTE | 2019-01-11 15:23 | Wound Progress Note ---
Date of Service January 11, 2019 Assessment & Plan (1) Suspected deep tissue injury of unknown depth of head: Wound appears to be improving. Continue use offloading pillow. (2) Suspected deep tissue injury of unknown depth of upper back: Wound is improving. There is some drainage. Continue to protect wound with optifoam. Thank you for allowing to participate in care of this patient. Please not hesitate to call with any questions. Physical Exam Vital Signs (Past 24 Hours): Last Vital Signs Temp 36.5 C 01/11/19 11:21 Pulse 76 01/11/19 13:06 Resp 20 01/11/19 11:21 BP 157/71 H 01/11/19 13:06 Pulse Ox 98 01/11/19 11:28
[2019-01-11] MEDS ORDERED: Nursing to Pharmacy Communication ONE (18:57)
[2019-01-11] MEDS ORDERED: PIPERACILL/TAZOBAC CONSULT ACTIVE PRN (19:14)
[2019-01-11] MEDS ORDERED: ACETAMINOPHEN 1,000 MG/100 ML VIAL IV ONE (19:30)
[2019-01-11] MEDS ORDERED: D5NSS + 20MEQ KCL 20 MEQ/1,000 ML BAG IV SCH (19:30)
[2019-01-11] MEDS ORDERED: PIPERACILLIN/TAZOBACTAM 4.5 GM in DEXTROSE 5% 100 ML IV ONE (19:45)
[2019-01-11] MEDS: TRIMETHOPRIM/POLYMYXIN B OPB SCH (20:28)
[2019-01-11] MEDS ORDERED: TRIMETHOPRIM/POLYMYXIN B OP SCH (21:00)
[2019-01-11] MEDS ORDERED: GADOBUTROL 65ML VIAL IV PRN (21:18)
--- NOTE | 2019-01-11 21:31 | Magnetic Resonance Report ---
MRI OF THE BRAIN WITHOUT AND WITH IV CONTRAST CLINICAL HISTORY: Trauma. Patient found on floor. Difficulty swallowing. COMPARISON STUDY: Noncontrast head CT dated 01/10/2019 TECHNIQUE: MRI of the brain was performed from the vertex to the skull base utilizing various T1 and T2 weighted sequences. Following the IV administration of 5.5 mL of Gadavist contrast, additional enh anced images were obtained. FINDINGS: Sagittal T1, axial diffusion, proton density and T2 weighted axial, coronal FLAIR, and pre and post a xial T1-weighted images were acquired. These were supplemented with post gadolinium coronal T1 weight ed images. No intra or extra-axial mass lesions are visualized. Axial diffusion-weighted images reveal no evidence of acute or subacute infarction. There is no evidence of ventricular dilatation. Proton density T2-weighted and FLAIR images reveal scattered foci of increased T2 signal within the w joan matter, likely on a small vessel basis. There are no abnormal flow voids. There is no evidence of pathologic enhancement. There are foci of increased T2 signal within the mastoids, likely inflammatory. IMPRESSION: 1. No acute intracranial findings 2. No evidence of intracranial mass 3. No evidence of acute or subacute infarction. Electronically signed by: Matt Riojas M.D. 01/11/2019 9:30 PM
[2019-01-11] MEDS: PIPERACILLIN/TAZOBACTAM 3.375 GM in DEXTROSE 5% 100 ML IV SCH (23:59)
[2019-01-12] MEDS: ACETAMINOPHEN 1,000 MG/100 ML VIAL IV PRN ×2 (04:03→14:14)
[2019-01-12] MEDS ORDERED: LEVOTHYROXINE SODIUM 75 MCG TABLET PO SCH (06:30)
[2019-01-12] MEDS: METOPROLOL TARTRATE 1 MG/ML VIAL IV SCH ×3 (06:38→17:11)
[2019-01-12 07:19] LABS: Hematocrit (blood only) 38.4 % (37-47); Hemoglobin 11.5 g/dL (12.0-16.0); Mean Corpuscular Hgb Conc 29.9 g/dL (32-36); Mean Corpuscular Volume 96.2 fL (80-100); Mean Platelet Volume 11.4 fL (7.4-10.4); Platelet Count 179 K/uL (130-400); RDW Coefficient of Variation 17.1 % (11.5-14.5); RDW Standard Deviation 59.7 fL (36.4-46.3); Red Blood Count 3.99 M/uL (4.2-5.4); White Blood Count 7.43 K/uL (4.8-10.8)
[2019-01-12 07:29] LABS: Calcium 7.9 mg/dl (8.5-10.1); Creatinine Clr Calc Pharmacy 28.3 ml/min; Est GFR (African American) 53.8; Est GFR (Non-African American) 46.4; Potassium 4.2 mmol/L (3.5-5.1)
[2019-01-12] MEDS: TRIMETHOPRIM/POLYMYXIN B OPB SCH ×4 (08:00→22:10)
[2019-01-12] MEDS: HEPARIN SOD 5,000 UNIT/0.5 ML VIAL SQ SCH ×2 (08:01→22:10)
[2019-01-12] MEDS: PIPERACILLIN/TAZOBACTAM 3.375 GM in DEXTROSE 5% 100 ML IV SCH ×2 (08:02→17:12)
[2019-01-12] MEDS: LEVOTHYROXINE SODIUM 37.5 MCG in SYRINGE 0 ML IV SCH (10:15)
[2019-01-12] MEDS: SODIUM CHLORIDE 0.9% 1000ML 1,000 ML IV SCH (10:16)
--- NOTE | 2019-01-12 10:29 | Cardiology Progress Note ---
Date of Service January 12, 2019 Assessment & Plan (1) Rhabdomyolysis: Elevated CPK and troponin with clinical history of fall with extended time down total duration unknown Would continue to treat with IV hydration, antibiotics for underlying illnesses. Suspect component of aspiration on examination and history for video swallow on 01/14 (2) Elevated troponin: Suspect multifactorial with fall and injury and acute renal insufficiency contributing. But also term possible demand based ischemia versus catecholamine mediated. Echocardiogram reflects old septal wall motion normality with diffuse hypokinesis Multiple injuries preclude use of heparin currently. Would continue dual antiplatelet therapy with aspirin and clopidogrel as well as atorvastatin and metoprolol ok to d/c tele from cardiac standpoint (3) CAD (coronary artery disease): Presumed by prior echocardiogram and elevated troponins during past admission (4) Aortic valve stenosis: Echocardiogram reveals borderline severe to severe aortic stenosis likely complicating patient's acute presentation should be followed as outpatient (5) Cardiomyopathy as manifestation of underlying disease: Plan as above would not add LALO inhibitor at this time Subjective Pt seen and examined, states that she's feeling better. States strength is improving. Denies cp, sob, palpitations, lightheadedness or dizziness. Tele reviewed: sinus rhythm without arrhythmia or significant ectopy. Review of Systems All systems reviewed & are unremarkable except as noted in HPI & below Physical Exam Vital Signs (Past 24 Hours): Last Vital Signs Temp 36.5 C 01/12/19 07:49 Pulse 62 01/12/19 07:49 Resp 20 01/12/19 07:49 BP 135/55 L 01/12/19 07:49 Pulse Ox 96 01/12/19 07:49 Physical Exam: General: Awake, alert and oriented x 3. No acute distress. Frail HEENT: Normocephalic, atraumatic. Pupils equal, round and reactive to light and accommodation. Extraocular muscles are intact. Anicteric sclera. Moist mucous membranes. Neck: No JVD. No bruit. Cardiovascular: Regular. Positive S-4. Normal S-1 and S-2. No S-3. 3/6 mid to late systolic ejection murmur, greatest at the right sternal border, second intercostal space with radiation to the bilateral carotids. No rubs. Pulmonary: Clear to auscultation bilaterally. No rales, rhonchi, or wheezing. Abdomen: Bowel sounds x 4, soft. No rebound, guarding or tenderness. No organomegaly. Extremities: No clubbing, cyanosis or edema. +2 pedal pulses bilaterally. Skin: Warm and dry.
[2019-01-12] MEDS: DEXTROSE 5% 1,000 ML IV SCH ×2 (11:19→22:09)
--- NOTE | 2019-01-12 13:19 | Neurology Consultation ---
Date of Consultation January 12, 2019 Dysphagia Aspiration Pneumonia Rhabdomyolysis Systollic CHF DNR Fall UTI CAD Coagulopathy CKD UC Muscle weakness An 88 year old woman with multiple medical comorbidities admitted on 01/10/2019 for UTI/pneumonia and rhabomyolysis s/p presumed fall at home. Patient noted to have dysphagia with no other focal deficits on admission. Has been NPO. MRI brain completed and Negative for acute or subacute stroke. Patient on dual antiplatlet therapy at home. Neurology consulted for dysphagia. On examine, patient has moderate dysarthria. Face is symmetric. Gag reflex appears week with tongue depressor. Areflexia. EOMI. Shoulder shrug is strong. No ptosis with sustained ugaze. Tongue midline with no fasciculations. Has some facial weakness and tongue protrusion is weak. Significant upper and lower proximal weakness. - Differential diagnosis includes Sarcopenia secondary to recent Rhabdomyolysis Vs Critical Illness neuroapthy /myopathy Vs Pharygeal Brachial Variant of GBS Vs DWI Negative stroke (low suspicion). - Her shoulder shrug appears strong. Holding her head up this afternoon. She does have weakness in her lower extremities as well as uppers. Has paresthesias in her feet which is chronic. Low suspicion for PCB-variant of GBS at this time. Recommend daily speech evalaution to monitor for progression. - Recommend videofluroscopy. Scheduled for Monday. - Recommend to consider NG tube for medications (ASA and Plavix) and tube feeds. - CK trending down which is consistent with suspected Rhabdomyolysis - Recommend to continue to check daily CK - Please check SPEP, B12, folate, thiamine, ESR, and CRP. Neurology will continue to follow. History of Present Illness Attending Physician: Ladonna Morrissey DO HPI: An 88-year-old woman wih historoy UC, CKD, CAD on ASA and Plavix, gout, and CHF who presents to the ED after being found by son. Last seen the day prior. Patient was encephalopathic on admission and found to be incontinent of a large amount of diarrhea upon arrival to the ED. She had a mild leukocytosis on admission and UA was positive with culture for E. Coli. Cardiology was consulted for elevated troponin. Echo showed severe . Elevated tropon thought due to fall. Also noted to have dysphagia and unable to take PO. Speech following. MRI completed due to dysphagia which was negative for acute or subacute infarct. Patient reports she lives at home by herself and takes care of her self. Denies diplopia. States she fell out of bed and could not get up. Denies trouble swallowing at home. Denies coughing while drinking liquids. Denies numbness. Has paresthesias in feet which is chronic. Allergies Allergy/AdvReac Type Severity Reaction Status Date / Time aspirin Allergy Unknown uknown Verified 01/10/19 12:05 mesalamine Allergy Unknown . Verified 01/10/19 12:05 metformin Allergy Unknown . Verified 01/10/19 12:05 NSAIDS (Non-Steroidal Allergy Unknown . Verified 01/10/19 12:05 Anti-Inflamma Bisphosphonates Allergy Unknown . Uncoded 01/10/19 12:05 Home Medications Home Medications Medication Instructions Recorded Confirmed Type allopurinol 300 mg PO QAM 01/10/19 01/10/19 History aspirin 81 mg PO QAM 01/10/19 01/10/19 History atorvastatin 20 mg PO HS 01/10/19 01/10/19 History clopidogrel 75 mg PO QAM 01/10/19 01/10/19 History levothyroxine 75 mcg PO QAM 01/10/19 01/10/19 History mesalamine [Apriso] 0.375 g PO BID 01/10/19 01/10/19 History metoprolol succinate 25 mg PO QAM 01/10/19 01/10/19 History potassium chloride 10 meq PO QAM 01/10/19 01/10/19 History Patient History Medical History History of hysterectomy (Chronic) Hip fracture, right (Chronic) s/p repair CAD (coronary artery disease) (Chronic) hx of septal wall infarction CKD (chronic kidney disease), stage III (Chronic) Ulcerative colitis (Chronic) Lymphedema (Chronic) Aortic valve stenosis (Chronic) Heart failure due to valvular disease (Chronic) Chronic systolic CHF (congestive heart failure) (Chronic) Gout (Chronic) Hypothyroidism (Chronic) Diabetes mellitus type 2, diet-controlled (Chronic) Surgical History History of cataract surgery (Chronic) History of appendectomy (Chronic) History of total left hip replacement (Chronic) Family History Other Family history non-contributory Social History Communication Ability: Effective Beliefs That Will Affect Care: None Current Living Situation: Alone Other Information That Helps Us Care for You: No Feels Safe at Home: Yes Smoking Status: Never smoker Hx Alcohol Use: No Hx Substance Use: No Physical Exam Vital Signs (Past 24 Hours): Last Vital Signs Temp 36.4 C L 01/12/19 12:11 Pulse 67 01/12/19 12:11 Resp 17 01/12/19 12:11 BP 90/77 L 01/12/19 12:11 Pulse Ox 96 01/12/19 12:11 Physical Exam: EXAM: Constitutional: appears acutely ill, non distress Face: bruise on left side of face from fall Eyes: normal lids, normal conjunctiva Neck: supple Respiratory: normal effort Cardiovascular: normal pulses Abdomen: non tender, mildly distended Skin: abrasuion on left arm with bandage MSK: Lower extremity edema bialteral Psychiatric: normal judgement and insight, normal mood and normal affect NEUROLOGIC EXAMINATION: Appearance: no acute distress Orientation: awake, alert and oriented x 3 Mental Status: alert Memory: Ok Attention: normal Knowledge: Ok, could not recall president name Language: comprehension intact, follwing commands Speech: moderate dysarthria Cranial Nerves: CN 2 - no visual defect on confrontation and pupils round, equal, reactive to light CN 3, 4, 6 - extra-ocular movements intact and no nystagmus, no ptosis wht upgaze CN 5 - facial sensation intact CN 7 - no facial asymmetry, facial weakness with puffing cheeks out CN 8 - mild hearing impairment CN 9, 10 - palate symmetric, did not gag with tongue blade on palpation of posterior tongue CN 11 - good shoulder shrug CN 12 - tongue midline, appears dry, no fasciculations, tongue appears week Gait: deferred due to weakness Coordination: no tremor or dyskinesias, unable to perform finger to nose due to arm weakness Sensory: intact to light touch, no extinction in lower extremities Muscle Tone: normal Muscle exam: Unable to lift arms above her head 3-/5, interossi weakness 4-/5, trouble lifting both legs off the bed, bilaterla hip flexion weakness, moving her toes against gravity Reflexes: Absent at the knees and biceps bilateral Results & Data Diagnostic Findings MRI brain reviewed. My impression is no evidence of acute stroke. No abnormal br ainstem enhancement. No mass.
[2019-01-12 17:08] LABS: BUN Creatinine Ratio 41.1 (10-20); Creatinine Clr Calc Pharmacy 27.2 ml/min; Est GFR (African American) 51.5; Est GFR (Non-African American) 44.4; Potassium 4.3 mmol/L (3.5-5.1)
--- NOTE | 2019-01-12 17:21 | Hospitalist Progress Note ---
Date of Service January 12, 2019 Assessment & Plan (1) UTI (urinary tract infection): Acute urinary retention prompting Ann likely secondary to urinary tract infection. Rocephin was started empirically pending cultures. Changed to Zosyn in setting of multiple infections. (2) Pneumonia: Questionable aspiration pneumonia patient has difficulty swallowing is strictly n.p.o. Dyshagia is acute. Continue Zosyn for coverage of anaerobes in setting of possible aspiration pneumonia. Blood cultures are pending. (3) Fall: PT/OT when able. (4) Elevated troponin: Demand ischemia in the setting of rhabdomyolysis (5) Rhabdomyolysis: Rhabdomyolysis secondary to prolonged immobilization on the floor. Elevated CK also secondary to rhabdomyolysis. The patient has some soreness which will treat with Tylenol. She denies any chest pain and does not appear to have any ACS. She appears to be more oriented today, going through the events pretty clearly. Continue IV fluid resuscitation. PT/ OT. Patient states her baseline is 50% walking with walker and 50% in the wheelchair. Monitor serial CKs. Monitor renal function. (6) CAD (coronary artery disease): Stable, no chest pain, cardiology consulted. Continue medical management, however patient is currently n.p.o. and is not able to take her aspirin, Plavix, statin. Beta-vandana was converted to IV. (7) Skin breakdown: -Patient noted to have extensive skin breakdown/bruising on admission -Wound care consult, specialty mattress (8) Difficulty swallowing: Today is day 2 of difficulty swallowing. N.p.o. status is strongly recommended via speech pathology. However, patient was swallowing just fine prior to these events. MRI normal overnight. NG tube discussed with neurology and recommended. Will consult nutrition. Hold all PO meds. (9) Chronic systolic CHF (congestive heart failure): compensated. Cont current management. Normal saline running while patient is n.p.o. Will turn down weight from 100 cc an hour to 60 cc an hour to avoid issues with volume overload. Continue to monitor volume status daily. (10) Aortic valve stenosis: -Echo 07/2017-EF 45-50%, grade 1 diastolic dysfunction, moderate aortic stenosis and aortic regurgitation, moderate to severe mitral regurgitation, moderate tricuspid regurgitation -Outpatient records indicate the patient should be on Lasix 40 mg daily, however it appears as though patient has not had this medication filled in some time -Diuretics not indicated at this point given severe rhabdomyolysis -Monitor volume status closely, reintroduced diuretics if indicated (11) CKD (chronic kidney disease), stage III: At baseline. (12) Ulcerative colitis: -Resume methylamine when taking p.o. (13) Hypothyroidism: IV Synthroid while n.p.o. (14) Anemia in chronic illness: (15) DVT prophylaxis: -SQ heparin DO NOT RESUSCITATE Disposition-continue telemetry. Ladonna Morrissey DO [facility] Hospitalist Subjective +weakness difficulty speaking and swallowing persists multiple wounds but no overt pain Physical Exam Vital Signs (Past 24 Hours): Last Vital Signs Temp 36.5 C 01/12/19 15:16 Pulse 66 01/12/19 17:11 Resp 20 01/12/19 15:16 BP 154/66 H 01/12/19 17:11 Pulse Ox 100 01/12/19 15:16 CONSTITUTIONAL: WNWD, vitals as above, generally ill-appearing, elderly EYES: normal conjuctivae, no scleral icterus, no further eye crusting RESPIRATORY: clear to auscultation bilaterally, no crackles, rales or wheezes, normal respiratory effort. This exam was limited as movement is limited 2/2 weakness and patient was not following directions to take deep breaths. CARDIOVASCULAR: regular rate and rhythm, S1 and 2 heard without murmurs, gallops or rubs, no JVD, 2+ pitting edema with a chronic woody appearance to lower legs bilaterally. Ulcers on both lower legs GASTROINTESTINAL: normal bowel sounds, soft, nontender, nondistended MUSCULOSKELETAL: posterior head wound with drainage. some minor bruising on her L eye. Generalized weakness. SKIN: warm and dry, wounds on back multiple. As above. NEUROLOGIC: CN 2-12 grossly intact, speech intact, oriented. PSYCHIATRIC: alert cooperative and oriented to person, place and time. Results & Data Laboratory Results Short CBC 01/12/19 Range/Units 06:39 WBC 7.43 (4.8-10.8) K/uL Hgb 11.5 L (12.0-16.0) g/dL Hct 38.4 (37-47) % Plt Count 179 (130-400) K/uL BMP 01/12/19 01/12/19 06:47 16:10 Sodium 151 H 149 H Potassium 4.2 4.3 Chloride 124 H 122 H Carbon Dioxide 21 20 L BUN 48 H 46 H Creatinine 1.08 1.12 Glucose 102 H 149 H Calcium 7.9 L 8.0 L Cardiac Enzymes 01/12/19 Range/Units 06:47 Total Creatine Kinase 688 H (26-192) U/L Medications Administered Current Inpatient Medications Allopurinol (Zyloprim) 300 mg PO [facility] Stop: 02/10/19 08:59 Last Admin: 01/11/19 08:34 Dose: Not Given Documented by: Aspirin (Ecotrin Ectab) [facility] [place]: 02/10/19 08:59 Last Admin: 01/11/19 08:34 Dose: Not Given Documented by: Atorvastatin Calcium (Lipitor) 20 mg PO [facility] Stop: 02/09/19 20:59 Last Admin: 01/10/19 23:10 Dose: Not Given Documented by: Clopidogrel Bisulfate (Plavix) 75 mg PO [facility] Stop: 02/10/19 08:59 Last Admin: 01/11/19 08:34 Dose: Not Given Documented by: Gadobutrol (Gadavist 65ml) 5.5 ml IV ONCE PRN PRN Reason: Interaction Checking Stop: 01/15/19 21:17 Last Admin: 01/11/19 21:19 Dose: 5.5 ml Documented by: Heparin Sodium (Porcine) (Heparin Sodium (Porcine)) 5,000 units SQ Q12 [facility] Stop: 02/09/19 20:59 Last Admin: 01/12/19 08:01 Dose: 5,000 units Documented by: Acetaminophen (Ofirmev) 1,000 mg in 100 mls @ 400 mls/hr IV Q8H PRN PRN Reason: Pain Stop: 02/11/19 03:59 Last Infusion: 01/12/19 14:56 Dose: Infused Documented by: Levothyroxine Sodium 37.5 mcg/ (Syringe) 1.875 mls @ 0.938 mls/min IV DAILY@0900 [facility] Stop: 02/11/19 08:59 Last Admin: 01/12/19 10:15 Dose: 0.938 mls/min Documented by: Piperacillin Sod/Tazobactam (Sod 3.375 gm/ Dextrose) 115 mls @ 30 mls/hr IV Q8H [facility]; Protocol Stop: 01/22/19 00:00 Last Admin: 01/12/19 17:12 Dose: 30 mls/hr Documented by: Dextrose (D5w) 1,000 mls @ 100 mls/hr IV .Q10H [facility] Stop: 02/11/19 10:44 Last Admin: 01/12/19 11:19 Dose: 100 mls/hr Documented by: Metoprolol Succinate (Toprol Xl) 25 mg PO QAM [facility] Stop: 02/09/19 17:14 Last Admin: 01/10/19 19:22 Dose: Not Given Documented by: Metoprolol Tartrate (Lopressor) 2.5 mg IV Q6H [facility] Stop: 02/10/19 06:29 Last Admin: 01/12/19 17:11 Dose: 2.5 mg Documented by: Miscellaneous (Order Awaiting Action) 1 ea N/A QS [facility] Stop: 02/09/19 17:44 Last Admin: 01/11/19 15:12 Dose: Not Given Documented by: Miscellaneous Information (Consult) 1 ea N/A UD PRN PRN Reason: Consult Stop: 02/10/19 19:13 Polymyxin/Trimethoprim Sulfate (Polytrim) 2 drops OPB QID [facility] Stop: 01/18/19 20:59 Last Admin: 01/12/19 17:13 Dose: 2 drops Documented by:
--- NOTE | 2019-01-12 17:56 | XRay Report ---
KUB CLINICAL HISTORY: Enteric tube placement. FINDINGS: An AP, portable, supine abdominal radiograph is correlated with lumbar spine radiographs da sandy 01/10/[address] dated 09/15/2017. An enteric tube has been placed. This is coiled above th e diaphragm, likely located within a large hiatal hernia. There is no evidence of bowel obstruction o r intraperitoneal free air on this supine examination. Airspace consolidation is noted at the left huey ng base. Small pleural effusions are suspected. IMPRESSION: 1. The enteric tube is coiled above the diaphragm, likely contained within a large hiatal hernia. 2. There is no evidence of bowel obstruction. 3. Small pleural effusions and left basilar consolidation. Electronically signed by: Tyrese Rivera M.D. 01/12/2019 5:55 PM
[2019-01-12] MEDS ORDERED: PEPTAMEN 1.5 CAL 1,000 ML BAG PO SCH (18:45)
[2019-01-13] MEDS: PIPERACILLIN/TAZOBACTAM 3.375 GM in DEXTROSE 5% 100 ML IV SCH ×3 (00:18→15:58)
[2019-01-13] MEDS: METOPROLOL TARTRATE 1 MG/ML VIAL IV SCH ×4 (00:18→18:02)
[2019-01-13] MEDS: ACETAMINOPHEN 1,000 MG/100 ML VIAL IV PRN (01:15)
[2019-01-13] MEDS: DEXTROSE 5% 1,000 ML IV SCH (06:18)
[2019-01-13 08:45] LABS: Hematocrit (blood only) 38.2 % (37-47); Hemoglobin 11.6 g/dL (12.0-16.0); Mean Corpuscular Hgb Conc 30.4 g/dL (32-36); Mean Corpuscular Volume 96.5 fL (80-100); Mean Platelet Volume 12.1 fL (7.4-10.4); Nucleated RBC # (auto) 0.06 K/uL (0-0); Nucleated RBC % (auto) 0.6 %; Platelet Count 205 K/uL (130-400); RDW Coefficient of Variation 17.2 % (11.5-14.5); RDW Standard Deviation 59.5 fL (36.4-46.3); Red Blood Count 3.96 M/uL (4.2-5.4); White Blood Count 9.31 K/uL (4.8-10.8)
[2019-01-13] MEDS: HEPARIN SOD 5,000 UNIT/0.5 ML VIAL SQ SCH (08:52)
[2019-01-13] MEDS: LEVOTHYROXINE SODIUM 37.5 MCG in SYRINGE 0 ML IV SCH (08:54)
[2019-01-13] MEDS: TRIMETHOPRIM/POLYMYXIN B OPB SCH ×3 (08:55→18:02)
[2019-01-13 08:57] LABS: Est GFR (African American) 52.1; Potassium 4.3 mmol/L (3.5-5.1)
[2019-01-13 08:58] LABS: BUN Creatinine Ratio 39.4 (10-20); Calcium 7.9 mg/dl (8.5-10.1); Creatinine Clr Calc Pharmacy 27.5 ml/min; Est GFR (Non-African American) 44.9
--- NOTE | 2019-01-13 11:54 | XRay Report ---
XR KUB CLINICAL HISTORY: NGT adjusted COMPARISON STUDY: 01/12/2019 FINDINGS: The study is limited from a technical standpoint. There are multiple overlying sheets causi ng radiopaque artifact. There is no pathologic bowel dilatation. There are postsurgical changes of a right hip pinning and bipolar left hip arthroplasty. There is a nasogastric tube with its tip at the L1 level. This is likely within a hiatal hernia. The heart is enlarged. Bilateral pleural effusions a re suspected. IMPRESSION: The nasogastric tube is likely positioned within a hiatal hernia. The tip is visualized at the L1 level to the left of midline. Electronically signed by: Matt Riojas M.D. 01/13/2019 11:52 AM
[2019-01-13] MEDS ORDERED: PEPTAMEN 1.5 CAL 1,000 ML BAG PO SCH (12:30)
--- NOTE | 2019-01-13 14:36 | Neurology Progress Note ---
Date of Service January 13, 2019 Dysphagia Dysarthria Proximal Muscle weakness Areflexia Aspiration Pneumonia Rhabdomyolysis Systollic CHF DNR Fall UTI CAD Coagulopathy CKD UC An 88 year old woman with multiple medical comorbidities admitted on 01/10/2019 for UTI/pneumonia and rhabomyolysis s/p presumed fall at home. Patient noted to have dysphagia with no other focal deficits on admission. Has been NPO. MRI brain completed and Negative for acute or subacute stroke. Patient on dual antiplatlet therapy at home. Neurology consulted for dysphagia. - On examine, patient has moderate to severe dysarthria. She has facial and tongue weakness. Reflexes are absent. She has moderate to severe neck flexion weakness. Should shrug is strong. She is unable to lift her arms above her head. Patient reports dysphagia is acute and denies swallowing problems at home. - She appears worse today so his appears to have progressed. - I am concerned she may have Pharygeal Brachial Variant of GBS which would be supported buythe acute onset of symptoms.. Eye closure is strong. No diplopia. - Other DDX: MG (less likely) Vs DWI Negative Stroke Vs Critical Illness Myopathy/Neuropathy - Videofluroscopy. Scheduled for Monday. - NG tube in place for tube feeds and medications - Recommend checking achetylcholine receptor antibody panel, serum anti GQ1b, ESR, CRP, GEETA. - CT soft tissue neck - CK trending down. 415 today. - Given high concern for GBS variant, I would recommend LP for evaluation of elevated protein and trial of IVIG or PLEX for suspected pharygeal brachial variant of GBS. Discussed with [facility] in [place], [place]. Accepted patient as transfer. Appreciate help! Subjective Patient was seen and examined. NG tube placed. Reports speech and swallowing seems worse then yesterday. States she can't lift her head off the pillow. Denies swallowing problems at home and states this occurred acutely. Physical Exam Vital Signs (Past 24 Hours): Last Vital Signs Temp 36.3 C L 01/13/19 11:53 Pulse 65 01/13/19 12:21 Resp 21 01/13/19 11:53 BP 148/78 H 01/13/19 12:21 Pulse Ox 98 01/13/19 11:53 Physical Exam: Appears acutely ill. No distress. NG tube and O2 Nc. Awake. comprehension intact. Facial weakness and tongue is weak. Modertae to severe dysarthria. Unable to flex head off pillow. Shoulder shrug is good. Weak cough. Moving hands well. Unable to lift arms above head without assistance. Sensaton is intact to light touch. Difficult to perfom finger to nose due to arm weakness. EOMI. Pupils equal and reactive. No ptosis with sustained ugaze. Eye closure is strong.
--- NOTE | 2019-01-13 15:39 | Communication Note ---
Date of Service: January 13, 2019 TRANSFER SUMMARY: 88-year-old female was found down at home after a fall. No loss of consciousness was reported. She was likely on the ground for approximately 24 hours and was too weak to get help. She was found by her son and was brought into the ER via EMS. She is not on home oxygen and appeared hemodynamically stable but was requiring oxygen supplementation via nasal cannula at 2 L/min. Skin breakdown was noted on posterior occiput as well as her back and sacrum. She also had skin breakdown on her extremities. A chest x-ray revealed a left basilar opacity. An EKG revealed sinus rhythm with a rate of 70 and T wave inversions in the anterior and inferior leads. She was notably on aspirin and Plavix. A wound culture was obtained and she was started on broad-spectrum antibiotics and fluids. Troponin was pulled and was 20. CK was also obtained and was roughly 3000. ACS was not thought possible and this was confirmed by cardiology after consult. She was notably unable to swallow and was given ID aspirin. She was admitted to the hospitalist service as she was severely weak. She does live at home alone and ambulates with a walker at baseline. IVF were started. 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 Throughout the admission she persistently denied any chest pain but it was tender in areas of injury. She did have a loose rattling cough and her pneumonia was suspicious for an aspiration. Speech pathology was consulted and noted venita aspiration on multiple attempts at swallowingfor several days successively. Lab work revealed metabolic acidosis. She continued IV fluids for presumed rhabdomyolysis and CK and troponins trended down. An echocardiogram was ordered revealing ejection fraction of 30-35% with global left ventricular hypokinesis and focal severe hypokinesis of the mid and apical septum. Mitral valve leaflets were moderately thickened with mitral valve annular calcification. There was moderate to severe mitral regurgitation and mild to moderate tricuspid regurgitation seen. Right ventricular systolic pressure was elevated at 40-50 mm Hg. A prior echocardiogram 08/15 revealed an EF of 45-50%. A heparin drip was considered, however, was not added given injury as a possible source of troponin elevation and extensive bruising. Urinary tract infection was suspected initially and she was started on IV ceftriaxone. Wound care was consulted and dressed and treated wounds which revealed some infection, and antibiotics were switched to Zosyn. As a result of her acute dysphagia that was not improving, a brain MRI was performed revealing no acute intracranial findings, no evidence of intracranial mass, no evidence of acute or subacute infarction. Neurology was consulted and initially felt the differential diagnosis included but was not limited to sarcopenia secondary to recent rhabdomyolysis versus a critical illness neuropathy/myopathy versus pharyngeal brachial variant of GBS versus DWI negative stroke, with low suspicion for the latter. An NG tube was placed for nutrition purposes while awaiting improvement. A video swallow study was scheduled for Monday. However, the following day (Monday) she appeared prog ressed revealing moderate to severe dysarthria, facial and tongue weakness, absent reflexes, and moderate to severe neck flexion weakness. She was unable to lift her arms above her head. Additionally despite the diagnosis of pneumonia she has been on antibiotics for a couple of days with no improvement in her oxygen requirement. Throughout her hospitalization she remained oriented and aware of her situation. Telemetry review did not reveal evidence of concerning arrhythmia. She did have bilateral conjunctivitis that was cleared up with eye drops. As GBS was considered a possibility and [facility] did not have services available to treat this including IVIG infusions or plasma exchange therapy, it was considered appropriate to transfer her to [facility] in [place], [place] for f urther workup and treatment. On day of discharge physical exam revealed significant proximal muscle weakness, progressed dysarthria, progressed speech weakness, and the patient reported feeling generally more weak. She was transferred to tertiary care center in guarded condition. Close primary care follow-up was recommended upon discharge. Of note tube feeds were started via NG tube but did not have time to get to goal. Recommendations included Peptamen 1.5 at 10 cc/hr with a goal of 45 cc/hour providing 1620 kcal per day and 72g protein. Free water flushes were added every 4 hours at 115 mils every 4 hours. It should be noted she did become hypernatremic during hospitalization requiring a switch of fluids to D5W which did improve her sodium. Hypernatremia was secondary to decreased free water accessibility and will need to be monitored closely at receiving hospital. Also of note her NG tube was difficult to place requiring approximately 10 attempts and ended multiple times in her hiatal hernia above the diaphragm. Tube feeds were still initiated. INPATIENT MEDICATIONS AT TIME OF DISCHARGE: Current Inpatient Medications Enteral Nutritional Formula (Peptamen 1.5) 1,000 ml PO UD CLIVE; Protocol Stop: 02/12/19 12:29 Gadobutrol (Gadavist 65ml) 5.5 ml IV ONCE PRN PRN Reason: Interaction Checking Stop: 01/15/19 21:17 Last Admin: 01/11/19 21:19 Dose: 5.5 ml Documented by: Heparin Sodium (Porcine) (Heparin Sodium (Porcine)) 5,000 units SQ Q12 CLIVE Stop: 02/09/19 20:59 Last Admin: 01/13/19 08:52 Dose: 5,000 units Documented by: Acetaminophen (Ofirmev) 1,000 mg in 100 mls @ 400 mls/hr IV Q8H PRN PRN Reason: Pain Stop: 02/11/19 03:59 Last Infusion: 01/13/19 01:30 Dose: Infused Documented by: Levothyroxine Sodium 37.5 mcg/ (Syringe) 1.875 mls @ 0.938 mls/min IV DAILY@0900 [facility] Stop: 02/11/19 08:59 Last Admin: 01/13/19 08:54 Dose: 0.938 mls/min Documented by: Piperacillin Sod/Tazobactam (Sod 3.375 gm/ Dextrose) 115 mls @ 30 mls/hr IV Q8H [facility]; Protocol Stop: 01/22/19 00:00 Last Infusion: 01/13/19 13:12 Dose: Infused Documented by: Dextrose (D5w) 1,000 mls @ 150 mls/hr IV .Q6H40M [facility] Stop: 02/11/19 10:44 Last Infusion: 01/13/19 11:25 Dose: 150 mls/hr Documented by: Metoprolol Tartrate (Lopressor) 2.5 mg IV Q6H [facility] Stop: 02/10/19 06:29 Last Admin: 01/13/19 12:21 Dose: 2.5 mg Documented by: Miscellaneous Information (Consult) 1 ea N/A UD PRN PRN Reason: Consult Stop: 02/10/19 19:13 Polymyxin/Trimethoprim Sulfate (Polytrim) 2 drops OPB QID [facility]IVE Stop: 01/18/19 20:59 Last Admin: 01/13/19 12:22 Dose: 2 drops Documented by: Sterile Water (Tube Feeding Water Flush) 1 ea PO Q4 [facility] Stop: 02/12/19 15:59
[2019-01-13] MEDS ORDERED: TUBE FEEDING WATER FLUSH PO SCH (16:00)
--- NOTE | 2019-01-13 23:31 | Consultation Report ---
DATE OF CONSULTATION: 01/13/2019 GASTROENTEROLOGY CONSULTATION NOTE REFERRED BY: Ladonna Morrissey DO HISTORY OF PRESENT ILLNESS: I was asked by Dr. Morrissey to consult on this patient for evaluation of dysphagia. The patient presented to [facility] on the after being found on the floor by her son and this was reported as a fall. She was originally mildly confused and since that time she has had trouble swallowing. She is a good historian and states that she has had no trouble swallowing prior to her fall. Currently she is n.p.o. and has an NG tube in. She denies any abdominal pain, though she does describe a slight amount of odynophagia. She has had no vomiting. She has been evaluated by cardiology and neurology and neurology feels that there is a low suspicion for stroke. PAST MEDICAL HISTORY: I reviewed her medical records and her past medical history and her past medical history is significant for coronary artery disease, chronic kidney disease stage III. She has a history of ulcerative colitis, lymphedema, aortic valve stenosis, heart failure, gout, hypothyroidism, and diabetes. OUTPATIENT MEDICATIONS: Include allopurinol, aspirin, atorvastatin, clopidogrel, levothyroxine, mesalamine, metoprolol, and potassium replacement. ALLERGIES: LISTED NONSTEROIDALS, BISPHOSPHONATES, METFORMIN, AND ALSO MESALAMINE AND ASPIRIN ARE MENTIONED, but she takes these as an outpatient questioning the validity of the electronic records. FAMILY HISTORY: Negative for gastrointestinal disease. SOCIAL HISTORY: Not significant for active smoking or drinking. REVIEW OF SYSTEMS: As above, otherwise she denies any history of seizures. She denies any chest pain. She denies any productive cough. She denies any recent change in vision or hearing. She denies any altered mental status history except for her acute event which caused her admission. She denies any joint swelling. She denies any rectal bleeding. She denies any dysuria. She denies abdominal pain. PHYSICAL EXAMINATION: GENERAL: Reveals a pleasant, thin elderly woman in bed, easily aroused. VITAL SIGNS: Her most recent blood pressure is 137/63, pulse is 57, temperature is 36.4. SKIN: Icteric. EYES: Show anicteric sclerae. MOUTH: Extremely dry. She is dysarthric in her speech, which may be related to dryness. NECK: Extremely thin but supple with no lesions or adenopathy. CHEST: Clear. HEART: Bradycardic but regular. ABDOMEN: Soft with good bowel sounds. There are no obvious masses. EXTREMITIES: Thin with fair distal pulses and are warm. NEUROLOGIC: She is alert and oriented x3. There are no gross defects that I could note, however, she does have a decreased nasolabial fold on her right. LABORATORY DATA: Most recent CBC showed a hemoglobin of 11.6, white blood cell count of 9, platelet count of 205,000. KUB to check NG tube placement reveals evidence of large hiatal hernia. IMPRESSION AND PLAN: An 88-year-old woman with an acute fall, possible neurologic event, yet undefined, at home, and now with dysphagia that seems related to this incident. Given this and her dysarthria and loss of right-sided nasolabial fold, it seems that her symptoms are more consistent with oropharyngeal dysphagia and not esophageal dysphagia. However, she is at extreme risk for reflux disease given her large hiatal hernia and being recumbent in bed in the hospital and with an NG tube. I would recommend that she be started on daily proton pump inhibitor because of this. The nursing staff states that she is scheduled for a video swallow tomorrow and I will ask the Monday morning gastroenterology service to follow up on this and to discuss this with the hospitalist service to see whether an upper endoscopy might be warranted. It is unclear whether this would be of any value, but certainly further testing may make this the next step.
--- NOTE | 2019-01-14 09:25 | Discharge Summary ---
Date of Service January 16, 2019 Admission HPI Per Admitting Provider 88-year-old female who presents to the ED after being found on the floor by her son today. Per ER documentation, the patient was last seen by her son yesterday morning. Patient seems to be a little bit confused with poor insight so therefore history is limited from her. She reports to me that she fell on Monday (4 days ago) however does not appear to be the case since her son saw her in her usual state of health yesterday. Patient is currently complaining of back pain however is without other complaints. She denies chest pain, palpitations. No loss of consciousness. Patient was found to be incontinent of a large amount of diarrhea upon arrival to the ED. She denies abdominal pain, nausea, vomiting. No other recent illnesses, fevers, chills. She denies urinary symptoms. In the ED, patient is found to have significant skin breakdown scattered over her entire body. UA is suggestive of UTI. WBC 13 K, total CK 3038, troponin 20.4. EKG demonstrates worsening T wave inversions inferiorly. Patient was given IVF, IV Vanco, IV Zosyn, IV Doxy, IV ceftriaxone, full dose aspirin. Discharge Data Consultations 01/10/19 11:23 Consult Wound Care Provider Stat 01/10/19 14:01 ED Decision to Admit Stat 01/10/19 17:15 Consult Cardiology Routine Consult Case Management - Discharge Planning Routine 01/12/19 10:21 Consult Neurology Routine 01/12/19 10:22 Consult Gastroenterology Routine 01/13/19 15:13 Burn CD for patient Stat
--- NOTE | 2019-01-15 23:50 | Discharge Summary ---
Date of Service January 15, 2019 Admission HPI Per Admitting Provider 88-year-old female who presents to the ED after being found on the floor by her son today. Per ER documentation, the patient was last seen by her son yesterday morning. Patient seems to be a little bit confused with poor insight so therefore history is limited from her. She reports to me that she fell on Monday (4 days ago) however does not appear to be the case since her son saw her in her usual state of health yesterday. Patient is currently complaining of back pain however is without other complaints. She denies chest pain, palpitations. No loss of consciousness. Patient was found to be incontinent of a large amount of diarrhea upon arrival to the ED. She denies abdominal pain, nausea, vomiting. No other recent illnesses, fevers, chills. She denies urinary symptoms. In the ED, patient is found to have significant skin breakdown scattered over her entire body. UA is suggestive of UTI. WBC 13 K, total CK 3038, troponin 20.4. EKG demonstrates worsening T wave inversions inferiorly. Patient was given IVF, IV Vanco, IV Zosyn, IV Doxy, IV ceftriaxone, full dose aspirin. Admission Exam Per Admitting Provider Last Vital Signs Temp 36.1 C L 01/10/19 11:24 Pulse 79 01/10/19 16:17 Resp 20 01/10/19 16:17 BP 136/65 01/10/19 16:17 Pulse Ox 97 01/10/19 16:17 Constitutional: + ill appearing and + frail appearing Vitals as above Eyes: PERRL, conjunctivae normal, anicteric sclerae ENMT: Ears: + hearing impairment; no external ear abnormality Nose: + dry nasal mucous membranes; no external nose abnormality Respiratory: normal respiratory effort; no respiratory distress Auscultation: + diminished lung sounds Cardiovascular: Rate/Rhythm: regular rate and regular rhythm Vessels: normal peripheral pulses Extremities: + edema (Lymphedema BLE) Gastrointestinal (Abdomen): normal bowel sounds, soft, nontender, no hepatosplenomegaly Musculoskeletal: Extremities: no cyanosis and no clubbing Strength 3-4/5 throughout all extremities, generally weak Skin: Multiple areas of skin breakdown/ecchymosis, please refer to wound pictures in chart Neurologic: PERRL, EOMI, accommodation nl, no face palsy, no dysarthria Psychiatric: A+Ox3, euthymic affect (Forgetful, mildly confused) Insight: + poor insight Principal Diagnosis fall, rhabdomyolysis, hypernatremia, elevated troponin 2/2 myopathic illness, acute dysphagia s/p NGT on tube feeds. Discharge Data Allergies Allergy/AdvReac Type Severity Reaction Status Date / Time aspirin Allergy Unknown uknown Verified 01/10/19 12:05 mesalamine Allergy Unknown . Verified 01/10/19 12:05 metformin Allergy Unknown . Verified 01/10/19 12:05 NSAIDS (Non-Steroidal Allergy Unknown . Verified 01/10/19 12:05 Anti-Inflamma Bisphosphonates Allergy Unknown . Uncoded 01/10/19 12:05 Consultations 01/10/19 11:23 Consult Wound Care Provider Stat 01/10/19 14:01 ED Decision to Admit Stat 01/10/19 17:15 Consult Cardiology Routine Consult Case Management - Discharge Planning Routine 01/12/19 10:21 Consult Neurology Routine 01/12/19 10:22 Consult Gastroenterology Routine 01/13/19 15:13 Burn CD for patient Stat Ordered Studies 01/10/19 16:55 CT head/brain wo con Stat 01/11/19 18:14 MR brain wo/w con Urgent Hospital Course (1) UTI (urinary tract infection): Acute urinary retention prompting Ann likely secondary to urinary tract infection. Rocephin was started empirically pending cultures. Changed to Zosyn in setting of multiple infections. (2) Pneumonia: Questionable aspiration pneumonia patient has difficulty swallowing is strictly n.p.o. Dyshagia is acute. Continue Zosyn for coverage of anaerobes in setting of possible aspiration pneumonia. Blood cultures are pending. (3) Fall: PT/OT when able. (4) Elevated troponin: Demand ischemia in the setting of rhabdomyolysis (5) Rhabdomyolysis: Rhabdomyolysis secondary to prolonged immobilization on the floor. Elevated CK also secondary to rhabdomyolysis. The patient has some soreness which will treat with Tylenol. She denies any chest pain and does not appear to have any ACS. She appears to be more oriented today, going through the events pretty clearly. Continue IV fluid resuscitation. PT/ OT. Patient states her baseline is 50% walking with walker and 50% in the wheelchair. Monitor serial CKs. Monitor renal function. (6) CAD (coronary artery disease): (7) Skin breakdown: (8) Difficulty swallowing: (9) Chronic systolic CHF (congestive heart failure): (10) Aortic valve stenosis: (11) CKD (chronic kidney disease), stage III: ] (12) Ulcerative colitis: (13) Hypothyroidism: (14) Anemia in chronic illness: TRANSFER SUMMARY: 88-year-old female was found down at home after a fall. No loss of consciousness was reported. She was likely on the ground for approximately 24 hours and was too weak to get help. She was found by her son and was brought into the ER via EMS. She is not on home oxygen and appeared hemodynamically stable but was requiring oxygen supplementation via nasal cannula at 2 L/min. Skin breakdown was noted on posterior occiput as well as her back and sacrum. She also had skin breakdown on her extremities. A chest x-ray revealed a left basilar opacity. An EKG revealed sinus rhythm with a rate of 70 and T wave inversions in the anterior and inferior leads. She was notably on aspirin and Plavix. A wound culture was obtained and she was started on broad-spectrum antibiotics and fluids. Troponin was pulled and was 20. CK was also obtained and was roughly 3000. ACS was not thought possible and this was confirmed by cardiology after consult. She was notably unable to swallow and was given NC aspirin. She was admitted to the hospitalist service as she was severely weak. She does live at home alone and ambulates with a walker at baseline. IVF were started. 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 Throughout the admission she persistently denied any chest pain but it was tender in areas of injury. She did have a loose rattling cough and her pneumonia was suspicious for an aspiration. Speech pathology was consulted and noted venita aspiration on multiple attempts at swallowingfor several days successively. Lab work revealed metabolic acidosis. She continued IV fluids for presumed rhabdomyolysis and CK and troponins trended down. An echocardiogram was ordered revealing ejection fraction of 30-35% with global left ventricular hypokinesis and focal severe hypokinesis of the mid and apical septum. Mitral valve leaflets were moderately thickened with mitral valve annular calcification. There was moderate to severe mitral regurgitation and mild to moderate tricuspid regurgitation seen. Right ventricular systolic pressure was elevated at 40-50 mm Hg. A prior echocardiogram 08/15 revealed an EF of 45-50%. A heparin drip was considered, however, was not added given injury as a possible source of troponin elevation and extensive bruising. Urinary tract infection was suspected initially and she was started on IV ceftriaxone. Wound care was consulted and dressed and treated wounds which revealed some infection, and antibiotics were switched to Zosyn. As a result of her acute dysphagia that was not improving, a brain MRI was performed revealing no acute intracranial findings, no evidence of intracranial mass, no evidence of acute or subacute infarction. Neurology was consulted and initially felt the differential diagnosis included but was not limited to melissa copenia secondary to recent rhabdomyolysis versus a critical illness neuropathy/myopathy versus pharyngeal brachial variant of GBS versus DWI negative stroke, with low suspicion for the latter. An NG tube was placed for nutrition purposes while awaiting improvement. A video swallow study was scheduled for Monday. However, the following day (Monday) she appeared progressed revealing moderate to severe dysarthria, facial and tongue weakness, absent reflexes, and moderate to severe neck flexion weakness. She was unable to lift her arms above her head. Additionally despite the diagnosis of pn eumonia she has been on antibiotics for a couple of days with no improvement in her oxygen requirement. Throughout her hospitalization she remained oriented and aware of her situation. Telemetry review did not reveal evidence of concerning arrhythmia. She did have bilateral conjunctivitis that was cleared up with eye drops. As GBS was considered a possibility and [facility] did not have services available to treat this including IVIG infusions or plasma exchange therapy, it was considered appropriate to transfer her to [facility] in [place], [place] for further workup and treatment. On day of discharge physical exam revealed significant proximal muscle weakness, progressed dysarthria, progressed speech weakness, and the patient reported feeling generally more weak. She was rehman sferred to tertiary care center in guarded condition. Close primary care follow-up was recommended upon discharge. Of note tube feeds were started via NG tube but did not have time to get to goal. Recommendations included Peptamen 1.5 at 10 cc/hr with a goal of 45 cc/hour providing 1620 kcal per day and 72g protein. Free water flushes were added every 4 hours at 115 mils every 4 hours. It should be noted she did become hypernatremic during hospitalization requiring a switch of fluids to D5W which did improve her sodium. Hypernatremia was secondary to decreased free water accessibility and will need to be monitored closely at receiving hospital. Also of note her NG tube was difficult to place requiring approximately 10 attempts and ended multiple times in her hiatal hernia above the diaphragm. Tube feeds were still initiated. Total Time Total Time Spent Total Time Spent (In Minutes): 60 Total Time Includes: Examination of the Patient, Discharge Planning, Medication Reconciliation and Communication With Other Providers Discharge Plan Discharge Items Patient Disposition: Transfer Acute Care Hospital Reason For Visit: FALL,RHABOMYOLSIS,UTI Discharge Diagnosis: fall, rhabdomyolysis, hypernatremia, elevated troponin 2/2 myopathic illness, acute dysphagia s/p NGT on tube feeds. Condition: Serious Discharge Goals: Therapeutic intervention Activity: Resume your previous activity Non-emergency contact: Primary Care Provider Call non-emergency contact if: you have any medication questions, your symptoms worsen, your pain is worsening and you have a fever Follow-up/Referrals: Russ Doshi [Primary Care Provider] - Diet: Nothing by mouth Addtl Provider Instructions: You are being transferred to [facility] in [place], [place], and will need to follow-up with your primary care provider one week after discharge. It was a pleasure taking care of you! Please call if you have any questions or problems. You can reach a [facility] hospitalist on duty at [facility] 24 hours a day by calling [phone]. Take care of yourself. Ladonna Morrissey, [facility] Hospitalist Prescriptions: Continued atorvastatin 20 mg tablet 20 mg PO HS RF: 0 potassium chloride 10 mEq tablet extended release 10 meq PO QAM RF: 0 clopidogrel 75 mg tablet 75 mg PO QAM RF: 0 aspirin 81 mg Tablet,Delayed Release (Dr/Ec) 81 mg PO QAM RF: 0 levothyroxine 75 mcg tablet 75 mcg PO QAM RF: 0 allopurinol 300 mg tablet 300 mg PO QAM RF: 0 metoprolol succinate 25 mg tablet extended release 24 hr 25 mg PO QAM RF: 0 Apriso 0.375 gram capsule,extended release 24hr 0.375 g PO BID RF: 0 Stand-Alone Forms: My [facility] Discharge Orders: Discharge Order (Routine); Ordered 01/13/19 Ordered By: Ladonna Morrissey Admission Data Admit Date/Time: 01/10/19 14:46 Attending Provider: Ladonna Morrissey Admit Provider: Jean Claude Chin Primary Care Provider: Russ Doshi Other Providers: Aquiles Ramirez ; Jean Claude Chin ; Lalo Jenkins ; Rowdy Jackson ; Bebe Fernandez ; Adry Ochoa ; Aung Alvarez ; Yasmin Clarke ; Summer Figueroa ; Selam Chauhan ; Kennedy Scott ; Antonio Gerardo ; Lara Nelson ; Maribel Gonzalez ; Richelle De La Rosa ; Luma Palacios ; Kya Velasquez ; Letty Sesay ; Magdiel Lion ; Letty Sterling ; Ellen Arzola ; Dre Sosa Service: Telemetry Other Interventions: Discharge Summary Assessment (RN) Last Done: 01/13/19 18:04 DC Date/Time DO NOT enter until pt leaves facility: 01/13/19 21:03
== END 2019-01-13 21:03 | disposition short-term general hospital (02) | DRG 94 ==
LOC: ED 10:45 → 2E 14:46